=== PATIENT | male | born 1975 | race Caucasian/White ===

== ENCOUNTER 2019-07-18 12:02 | Inpatient (IN) | payer OTHER, SELFPAY ==
[2019-07-18] VITALS (40 sets, daily range): BP systolic 115–150; BP diastolic 73–93; PULSE 89–134; RESP 1–34; TEMP 36.6; O2SAT 91–98; BMI 23.7
--- NOTE | 2019-07-18 12:06 | XR_ITS ---
WS: [id number] XR chest 1V portable [id number] REASON FOR EXAM: cp FINDINGS: Scattered nodular densities in both lung vega are seen. Ulnar nodules aggressive processe s cannot be excluded. The heart mediastinum are normal. The remaining lung vega are well identified. There is no pneumonia, pleural effusion, pulmonary melissa ma. Hilum and apices are normal. XR/XR chest 1V portable [id number] IMPRESSION: Scattered nodules both lung vega we recommend consideration of CT evaluation to rule out aggressive processes.
--- NOTE | 2019-07-18 12:06 | ECG_ITS ---
Measurements Intervals [place] Rate: 118 P: 72 VA: 132 QRS: 60 QRSD: 88 T: 53 QT: 340 QTc: 477 SINUS TACHYCARDIA POSSIBLE LEFT ATRIAL ENLARGEMENT [-0.1mV P WAVE IN V1/V2] NONSPECIFIC T-WAVE ABNORMALITY No previous ECG available for comparison Electronically Signed On 07-18-2019 13:03:21 PERFORMANCE INSTRUCTOR by Luiza Pérez M.D. [id number]
--- NOTE | 2019-07-18 12:30 | ED_ITS ---
Entered by Marta Manzanares, acting as scribe for Samm Cancino MD HPI - Chest Pain General: Chief Complaint: Chest Pain Stated Complaint: cp/sob Time Seen by Provider: 07/18/19 12:32 History of Present Illness: HPI narrative: 44 yo male presents with chest pain. Pt was diagnosed with flu on Friday, he has been taking tamiflu. Pt states that he has had cough, fever and shortness of breath. Pts family member states that pt is out of it and weak. Pt states that he has a mildly productive cough. Pt states that he has pressure in his chest when he takes a deep breath. complaint: chest pain Associated symptoms: Reports dyspnea and fever(s); Deny abdominal pain, nausea or vomiting Review of Systems Const: Reports: fever, chills, body aches, fatigue and malaise Eyes: Denies: blurry vision or eye discomfort ENMT: Denies: throat pain or dental pain Card: Reports: chest pain and shortness of breath on exertion Resp: Reports: shortness of breath, productive cough, wheezing and change in phlegm color (green) GI: Denies: abdominal pain, nausea, vomiting or diarrhea : Denies: painful urination Musc: Denies: neck pain or back pain Skin/Breast: Denies: rash Neuro: Denies: headache Psych: Denies: depression Gm/Lymph: Denies: easy bruising All/Imm: Denies: hives PFSH ED PFSH: Social History Smoking and tobacco status: former smoker Physical Exam Const: COMMON NORMALS: no apparent distress, oriented x3 and healthy appearing HENMT: COMMON NORMALS: normocephalic and head/scalp atraumatic HEAD & SCALP: normocephalic and atraumatic Eye: COMMON NORMALS: PERRL and EOMs intact bilaterally PUPIL: Yes PERRL Neck/C-Spine: COMMON NORMALS: full ROM and supple Chest: COMMONS NORMALS: inspection of chest normal and palpation of chest normal Cardio: COMMON NORMALS: regular rhythm and no murmurs RATE: tachycardic RHYTHM: regular rhythm GI: COMMON NORMALS: normal to inspection, nondistended, normoactive bowel sounds, soft to palpation, non-tender and no masses PALPATION: Yes soft Extremity: COMMON NORMALS: normal to inspection and full ROM Neuro: COMMON NORMALS: oriented x3, moves all extremities and no focal motor deficits Psych: COMMON NORMALS: mental status grossly normal, thought process normal and cooperative THOUGHT PROCESS: normal thought process Skin: COMMON NORMALS: no rashes or lesions noted and no wounds GENERAL SKIN EXAM: no rashes or lesions noted Course Vital Signs: Vital signs: Vital Signs Temperature 98 F 07/18/19 12:24 Pulse Rate 120 H 07/18/19 12:24 Respiratory Rate 18 07/18/19 12:45 Blood Pressure 138/87 07/18/19 12:24 Pulse Oximetry 93 07/18/19 12:45 MDM - Chest Pain MDM Narrative: Medical decision making narrative: Patient presents here with pneumonia and also has influenza. Pneumonia is in his left lower lobe and will start him on azithromycin and Rocephin. Patient is also in DKA likely brought on by his infection. He does have an elevated anion gap and patient given IV fluids here and started on an insulin drip. I spoke to hospitalist and will admit to the ICU. Patient's vital signs have been stable here and his heart rate is improved greatly and he is no longer tachycardic. Lab Data: Labs: Lab Results 07/18/19 07/18/19 07/18/19 Range/Units 12:22 12:22 12:22 WBC 17.6 H (4.0-10.0) 10^3/ uL RBC 5.36 H (4.1-5.3) 10^6/u L Hgb 16.5 (11.7-16.6) g/dL Hct 47.9 (42.0-52.0) % MCV 89.4 (80-94) fL MCH 30.8 (28.0-34.0) pg MCHC 34.4 (30.0-36.0) g/dL RDW 12.7 (12.1-15.1) % Plt Count 219 (130-400) 10^3/c mm MPV 11.7 H (7.4-10.4) fL Neut % (Auto) 83.8 % Lymph % (Auto) 6.1 % [place] % (Auto) 8.9 % Eos % (Auto) 0.0 % Baso % (Auto) 0.2 % Neut # (Auto) 14.8 H (1.8-7.7) 10^3/u L Lymph # (Auto) 1.1 (0.8-4.8) 10^3/u L [place] # (Auto) 1.6 H (0.2-0.9) 10^3/u L Eos # (Auto) 0.0 (0.0-0.8) 10^3/u L Baso # (Auto) 0.0 (0.0-0.1) 10^3/u L Nucleated RBC % (a uto) 0 % Nucleated RBCs # 0.0 /100WBC PT 15.00 H (10.5-13.3) SECO NDS INR 1.14 (0.8-1.2) Sodium 125 L (136-145) mmol/L Potassium 4.3 (3.5-5.1) mmol/L Chloride 86 L (98-107) mmol/L Carbon Dioxide 10 L (22-29) mmol/L Anion Gap 33.3 H (5-19) BUN 20 (6-20) mg/dL Creatinine 1.3 H (0.7-1.2) mg/dL GFR Calculation 60.5 L (90-130) mL/min Glucose 420 H (65-115) mg/dL Lactic Acid (Sepsi s) (0.5-2.2) mmol/L Calcium 9.7 (8.5-10.5) mg/dL Total Bilirubin 0.7 (0.15-1.2) mg/dL AST 9 (0-40) U/L ALT 11 (0-41) U/L Alkaline Phosphata se 69 (40-130) IU/L Troponin T Baselin e (0-15) ng/mL NT-Pro-B Natriuret Pep 21 (0-125) pg/mL Total Protein 7.8 (6.6-8.7) g/dL Albumin 4.2 (3.5-5.2) g/dL Globulin 3.6 (1.3-4.6) g/dL Serum Ketones (Negative) 07/18/19 07/18/19 07/18/19 Range/Units 12:22 12:22 12:22 WBC (4.0-10.0) 10^3/ uL RBC (4.1-5.3) 10^6/u L Hgb (11.7-16.6) g/dL Hct (42.0-52.0) % MCV (80-94) fL MCH (28.0-34.0) pg MCHC (30.0-36.0) g/dL RDW (12.1-15.1) % Plt Count (130-400) 10^3/c mm MPV (7.4-10.4) fL Neut % (Auto) % Lymph % (Auto) % [place] % (Auto) % Eos % (Auto) % Baso % (Auto) % Neut # (Auto) (1.8-7.7) 10^3/u L Lymph # (Auto) (0.8-4.8) 10^3/u L [place] # (Auto) (0.2-0.9) 10^3/u L Eos # (Auto) (0.0-0.8) 10^3/u L Baso # (Auto) (0.0-0.1) 10^3/u L Nucleated RBC % (a uto) % Nucleated RBCs # /100WBC PT (10.5-13.3) SECO NDS INR (0.8-1.2) Sodium (136-145) mmol/L Potassium (3.5-5.1) mmol/L Chloride (98-107) mmol/L Carbon Dioxide (22-29) mmol/L Anion Gap (5-19) BUN (6-20) mg/dL Creatinine (0.7-1.2) mg/dL GFR Calculation (90-130) mL/min Glucose (65-115) mg/dL Lactic Acid (Sepsi s) 0.2 L (0.5-2.2) mmol/L Calcium (8.5-10.5) mg/dL Total Bilirubin (0.15-1.2) mg/dL AST (0-40) U/L ALT (0-41) U/L Alkaline Phosphata se (40-130) IU/L Troponin T Baselin e 8 (0-15) ng/mL NT-Pro-B Natriuret Pep (0-125) pg/mL Total Protein (6.6-8.7) g/dL Albumin (3.5-5.2) g/dL Globulin (1.3-4.6) g/dL Serum Ketones Positive H (Negative) Imaging Data^: CXR: Radiologist's impression: Patient: Cooper Cruz Unit #: [id number] : 1975 Age/Sex: 44 / M ADM Date: 07/18/19 Loc: ER Room/Bed: Attending Dr: Ordering Provider/Ordering MD: Samm Cancino MD Date of Service: 07/18/19 Procedure(s): XR chest 1V portable [id number] Accession Number(s): [id number] Report Number: [id number] WS: [id number] XR chest 1V portable [id number] REASON FOR EXAM: cp FINDINGS: Scattered nodular densities in both lung vega are seen. Ulnar nodules aggressive processes cannot be excluded. The heart mediastinum are normal. The remaining lung vega are well identified. There is no pneumonia, pleural effusion, pulmonary edema. Hilum and apices are normal. XR/XR chest 1V portable [id number] IMPRESSION: Scattered nodules both lung vega we recommend consideration of CT evaluation to rule out aggressive processes. CT Chest: Radiologist's impression: Ordering Provider/Ordering MD: Samm Cancino MD Date of Service: 07/18/19 Procedure(s): CT angio chest PE protcl [id number] Accession Number(s): [id number] Report Number: [id number] PROCEDURE INFORMATION: Exam: CT Angiography Chest With Contrast Exam date and time: 07/18/2019 1:10 PM Age: 44 years old Clinical indication: Chest pain; Other: SOB TECHNIQUE: Imaging protocol: Computed tomographic angiography of the chest with intravenous contrast. 3D rendering: MIP and/or 3D reconstructed images were created by the technologist. Total DLP: 592.43 mGy-cm Radiation optimization: All CT scans at this facility use at least one of these dose optimization techniques: automated exposure control; mA and/or kV adjustment per patient size (includes targeted exams where dose is matched to clinical indication); or iterative reconstruction. Contrast material: OMNI 300; Contrast volume: 95 ml; Contrast route: RT AC; COMPARISON: CR XR chest 1V portable [id number] 07/18/2019 12:15 PM FINDINGS: Pulmonary arteries: Normal. No pulmonary emboli. Aorta: Unremarkable. No aortic aneurysm. No aortic dissection. Lungs: There are pulmonary parenchymal calcifications consistent with remote granulomatous organism exposure. There is patchy consolidation in the left lung, upper and lower lobes, most prominent at the left perihilum, consistent with pneumonia. Pleural space: Unremarkable. No pneumothorax. No pleural effusion. Heart: Unremarkable. No cardiomegaly. No pericardial effusion. Lymph nodes: Unremarkable. No enlarged lymph nodes. Bones/joints: Unremarkable. No acute fracture. Soft tissues: Unremarkable. CT/CT angio chest PE protcl [id number] IMPRESSION: 1. Patchy consolidation in the left lung is consistent with pneumonia. Follow-up to exclude underlying neoplasm if clinically warranted. 2. No evidence for pulmonary embolus. EKG Data^: EKG 1: Attestation: I personally reviewed and interpreted this EKG as follows: EKG interpretation date: 07/18/19 EKG interpretation time: 12:29 Interpretation: sinus tach [address] or t wave abnormalities qrs 88 qtc 410 EKG 2: Attestation: I personally reviewed and interpreted this EKG as follows: EKG interpretation date: 07/18/19 EKG interpretation time: 14:04 Interpretation: Normal sinus rhythm heart rate [address] or T wave abnormalities QRS 89 QTc 401 Critical Care Time Critical Care Time: Critical Care Time: Yes Total Critical Care Time: 35 Attestation: This case had a high probability of a clinically significant, sudden, or life threatening deterioration of this patient's condition which required my full and direct attention, intervention and personal management. Discharge Plan Discharge Patient Disposition: Admitted As Inpatient Clinical Impression: DKA (diabetic ketoacidoses) Qualifiers: Diabetes mellitus type: type 1 Diabetes mellitus complication detail: without coma Qualified Code(s): E10.10 - Type 1 diabetes mellitus with ketoacidosis without coma Pneumonia Qualifiers: Pneumonia type: due to unspecified organism Laterality: left Lung location: lower lobe of lung Qualified Code(s): J18.9 - Pneumonia, unspecified organism Condition: Stable Coding Level of Care Code ED Wedding Photographer for Chg Fwd Exam Comprehensive The documentation recorded by the Leighton salomon Kialy, accurately reflects the service I personally performed and the decisions made by , Samm Cancino MD
[2019-07-18 12:32] LABS: Basophils % 0.2 %; Hematocrit 47.9 % (42.0-52.0); Hemoglobin 16.5 g/dL (11.7-16.6); Lymphocytes # 1.1 10^3/uL (0.8-4.8); Lymphocytes % 6.1 %; Mean Corpuscular HGB Conc 34.4 g/dL (30.0-36.0); Mean Corpuscular Hemoglobin 30.8 pg (28.0-34.0); Mean Corpuscular Volume 89.4 fL (80-94); Mean Platelet Volume 11.7 fL (7.4-10.4); Monocytes # 1.6 10^3/uL (0.2-0.9); Monocytes % 8.9 %; Neutrophils # 14.8 10^3/uL (1.8-7.7); Neutrophils % 83.8 %; Nucleated Red Blood Cells % 0 %; Platelet Count 219 10^3/cmm (130-400); Red Blood Count 5.36 10^6/uL (4.1-5.3); Red Cell Distribution Width 12.7 % (12.1-15.1); White Blood Count 17.6 10^3/uL (4.0-10.0)
--- NOTE | 2019-07-18 12:33 | CTR_ITS ---
PROCEDURE INFORMATION: Exam: CT Angiography Chest With Contrast Exam date and time: 07/18/2019 1:10 PM Age: 44 years old Clinical indication: Chest pain; Other: SOB TECHNIQUE: Imaging protocol: Computed tomographic angiography of the chest with intravenous contrast. 3D rendering: MIP and/or 3D reconstructed images were created by the technologist. Total DLP: 592.43 mGy-cm Radiation optimization: All CT scans at this facility use at least one of these dose optimization techniques: automated exposure control; mA and/or kV adjustment per patient size (includes targeted exams where dose is matched to clinical indication); or iterative reconstruction. Contrast material: OMNI 300; Contrast volume: 95 ml; Contrast route: RT AC; COMPARISON: CR XR chest 1V portable [id number] 07/18/2019 12:15 PM FINDINGS: Pulmonary arteries: Normal. No pulmonary emboli. Aorta: Unremarkable. No aortic aneurysm. No aortic dissection. Lungs: There are pulmonary parenchymal calcifications consistent with remote granulomatous organism exposure. There is patchy consolidation in the left lung, upper and lower lobes, most prominent at the left perihilum, consistent with pneumonia. Pleural space: Unremarkable. No pneumothorax. No pleural effusion. Heart: Unremarkable. No cardiomegaly. No pericardial effusion. Lymph nodes: Unremarkable. No enlarged lymph nodes. Bones/joints: Unremarkable. No acute fracture. Soft tissues: Unremarkable. CT/CT angio chest PE protcl [id number] IMPRESSION: 1. Patchy consolidation in the left lung is consistent with pneumonia. Follow-up to exclude underlying neoplasm if clinically warranted. 2. No evidence for pulmonary embolus. Radiation Dose CTDIVOL = (mGy): DLP = 592.43 (mGy-cm)
[2019-07-18 12:44] LABS: INR 1.14 (0.8-1.2)
[2019-07-18] MEDS: acetaminophen 500 mg Tablet 1000 MG PO (12:44)
[2019-07-18] MEDS: morphine 4 mg/mL SDV 1 mL IVP (12:45)
[2019-07-18 12:55] LABS: Troponin(5th) Baseline 8 ng/mL (0-15)
[2019-07-18 12:59] LABS: Lactic Acid level (Lactate) 0.2 mmol/L (0.5-2.2)
[2019-07-18 13:04] LABS: Alanine Aminotransferase 11 U/L (0-41); Albumin Level 4.2 g/dL (3.5-5.2); Alkaline Phosphatase 69 IU/L (40-130); Anion Gap 33.3 (5-19); Aspartate Amino Transferase 9 U/L (0-40); Blood Urea Nitrogen 20 mg/dL (6-20); Calcium 9.7 mg/dL (8.5-10.5); Carbon Dioxide 10 mmol/L (22-29); Chloride 86 mmol/L (98-107); Creatinine Clr Calc Pharmacy 81.9929; Globulin 3.6 g/dL (1.3-4.6); Glomerular Filtration Rate 60.5 mL/min (90-130); Glucose 420 mg/dL (65-115); NT Pro B Type Natriuretic Pept 21 pg/mL (0-125); Potassium 4.3 mmol/L (3.5-5.1); Sodium 125 mmol/L (136-145); Total Bilirubin 0.7 mg/dL (0.15-1.2); Total Protein 7.8 g/dL (6.6-8.7)
--- NOTE | 2019-07-18 13:13 | PC.NURSE ---
Patient to CT via stretcher
[2019-07-18] MEDS: iohexol 350 mg/mL 100 mL Btl IV (13:19)
[2019-07-18] MEDS: lactated ringers 1,000 ML 999 ML IV (13:58)
[2019-07-18 14:02] LABS: Ketone (Acetest) Serum Positive (Negative)
--- NOTE | 2019-07-18 14:06 | ECG_ITS ---
Measurements Intervals [place] Rate: 96 P: 49 MS: 120 QRS: 32 QRSD: 89 T: 54 QT: 348 QTc: 440 SINUS RHYTHM Compared to ECG 07/18/2019 12:29:09 Sinus tachycardia no longer present T-wave abnormality no longer present Electronically Signed On 07-19-2019 15:42:24 FULFILLMENT REPRESENTATIVE by Luiza Pérez M.D. [id number]
[2019-07-18] MEDS: cefTRIAXone 1,000 MG in sodium chloride 0.9% (plus) 50 ML 100 MG IV (14:19)
[2019-07-18 14:39] LABS: Troponin 5 2HR 7.48 ng/mL (0-15)
[2019-07-18 14:41] LABS: ABG PCO2 22.7 mmHg (35-45); ABG PH Result 7.29 (7.35-7.45); Arterial Blood Gas Hematocrit 46.5 % (42-52); Base Excess ABG -13.4 mmol/L (-2.0-2.0); Blood Gas Allen Test Pos; Blood Gas Sample Site Radial, right; Blood Gas Sample Type Arterial; Oxygen Device ROOM AIR; PO2 ABG 62.8 mmHg (80.0-100.0)
[2019-07-18 14:45] LABS: Troponin 5 2HR Delta -0.52 ABS# (0-10)
--- NOTE | 2019-07-18 14:59 | PC.NURSE ---
Report called to BJ in ICU. She voiced concern that this patient has not been given insulin in ED. I advised that an insulin drip is present on the admission orders but has not been started. Insulin drip has not been delivered to the ED.
[2019-07-18 15:18] LABS: Glucose Point of Care 386 mg/dL (70-110)
[2019-07-18] MEDS: azithromycin 500 MG in sodium chloride 0.9% 250 ML 250 MG IV (15:18)
--- NOTE | 2019-07-18 15:30 | P.HP_ITS ---
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 In ER was assessed by CTA, without finding of PE. Noted to have pneumonia with left lower lobe infiltrate. Leukocytosis 17.6, sinus tachycardia 120, and in ER also noted to be in DKA. pH 7.29. Bicarb 10, anion gap 33.3. Review of Systems Const: Reports: change in appetite and malaise; Denies: fever, chills or body aches Eyes: Denies: change in vision or eye redness ENMT: Denies: throat pain, oral sores/lesions or ear pain Card: Denies: chest pain, edema, pre-syncope or shortness of breath on exertion Resp: Reports: non-productive cough and other (pleuritic pain); Denies: shortness of breath, productive cough, change in phlegm color or coughing up blood GI: Denies: abdominal pain, nausea, vomiting, diarrhea, constipation, blood in stool or black tarry stool : Denies: flank pain, difficulty urinating, urinary frequency or blood in urine Musc: Denies: back pain, joint swelling or redness Skin/Breast: Denies: rash, sores or new lesion Neuro: Denies: headache, numbness in extremities, weakness in extremities, dizziness, confusion or seizure-like activity Endo: Denies: excessive urination or excessive thirst Gm/Lymph: Denies: easy bleeding or purpura All/Imm: Denies: hives, throat swelling or tongue swelling Medications/Allergies Home Medications Medication Instructions Recorded Confirmed Last Taken Type azithromycin See Rx Instructions .ROUTE .COMPLEX 07/18/19 07/18/19 07/18/19 History oseltamivir [Tamiflu] 75 mg PO DAILY 07/18/19 07/18/19 07/18/19 History Allergies Allergy/AdvReac Type Severity Reaction Status Date / Time No Known Allergies Allergy Verified 07/18/19 12:28 PFSH Acute PFSH: Medical History (Updated 07/18/19 @ 16:12 by Bradford Aguiar MD) Diabetes DM1 vs ISAAC? Intolerant of chronic insulin or oral therapy. Scott War syndrome Surgical History No history of previous surgery Family History Other Healthy adult Social History Smoking and tobacco status: former smoker Quit status (tobacco): has quit using tobacco Year quit tobacco: 2-3 ya Alcohol intake: current Alcohol intake frequency: holidays/special occasions only Substance/Drug Use: never Lives independently: Yes Household members: spouse Marital status: service: Yes Current occupational status: student Vitals/I&O/Wt Last Vital Signs Temp 98 F 07/18/19 12:24 Pulse 89 07/18/19 14:55 Resp 18 07/18/19 14:55 BP 143/83 07/18/19 14:55 Pulse Ox 98 07/18/19 14:55 Weight last 48 hrs Weight 79.379 kg Physical Exam Const: COMMON NORMALS: no apparent distress and oriented x3 HENMT: COMMON NORMALS: oropharynx normal MOUTH: other (dry MM) Neck/C-Spine: COMMON NORMALS: no JVD Resp: COMMON NORMALS: normal respiratory effort Cardio: COMMON NORMALS: no JVD and regular rhythm RATE: tachycardic RHYTHM: regular rhythm GI: INSPECTION: Yes normal to inspection PALPATION: Yes soft Extremity: COMMON NORMALS: no joint enlargement and no pedal edema Neuro: COMMON NORMALS: oriented x3 and moves all extremities Skin: COMMON NORMALS: no rashes or lesions noted GENERAL SKIN EXAM: no rashes or lesions noted Data : 07/18/19 12:22 07/18/19 12:22 Micro: Microbiology 07/18/19 12:50 Blood Culture - Preliminary Blood SPECIMEN COLLECTED 07/18/19 12:22 Blood Culture - Preliminary Blood SPECIMEN COLLECTED A&P Assessment and plan (1) DKA (diabetic ketoacidoses): Insulin drip, IV fluid, monitor and replace electrolytes as needed. Sips with ice chips. He may be able to tolerate some insulin subcutaneously once he is ready to switch while in the hospital, however, states long-term cannot tolerate insulin. Has followed with multiple specialists who have had trouble managing his diabetes. Status: Acute Qualifiers: Diabetes mellitus complication detail: without coma Diabetes mellitus type: type 1 Qualified Code(s): E10.10 - Type 1 diabetes mellitus with ketoacidosis without coma Code(s): E11.10 - Type 2 diabetes mellitus with ketoacidosis without coma (2) Pneumonia: Continue Rocephin, azithromycin. Collect sputum culture. Status: Acute Qualifiers: Laterality: left Lung location: lower lobe of lung Pneumonia type: due to unspecified organism Qualified Code(s): J18.9 - Pneumonia, unspecified organism Code(s): J18.9 - Pneumonia, unspecified organism (3) Influenza: Tamiflu Status: Acute Code(s): J11.1 - Influenza due to unidentified influenza virus with other respiratory manifestations (4) Diabetes: States he controls this by diet and lifestyle. Intolerant of insulin. When asked about oral medication states was intolerant of metformin in the past. Status: Acute Code(s): E11.9 - Type 2 diabetes mellitus without complications Additional A&P Information Chest pain: Pleuritic chest pain secondary to pneumonia, cough. Attestations Medical Necessity Statement*: Admission of over 2 midnights is going to be needed for assessment management of DKA, pneumonia, influenza. Coding Level of Care Code Acute Assembler Carbon Brushes for [facility] [place] Diagnoses DKA (diabetic ketoacidoses) E10.10 Diabetes mellitus complication detail: without coma Diabetes mellitus type: type 1 Pneumonia J18.9 Laterality: left Lung location: lower lobe of lung Pneumonia type: due to unspecified organism Influenza J11.1 Diabetes E11.9
[2019-07-18] MEDS: heparin 5,000 unit/mL INJ 1 mL 5000 UNIT SUBCUT (16:57)
[2019-07-18] MEDS: sodium chloride 0.9% 1,000 ML 150 ML IV (16:57)
[2019-07-18 17:17] LABS: Anion Gap 27.7 (5-19); Blood Urea Nitrogen 17 mg/dL (6-20); Calcium 9.6 mg/dL (8.5-10.5); Carbon Dioxide 13 mmol/L (22-29); Chloride 92 mmol/L (98-107); Glomerular Filtration Rate 73.4 mL/min (90-130); Glucose 310 mg/dL (65-115); Osmolality Calculated 276 mOsm/kg (285-295); Potassium 3.7 mmol/L (3.5-5.1); Sodium 129 mmol/L (136-145)
[2019-07-18 18:37] LABS: Glucose Point of Care 254 mg/dL (70-110)
[2019-07-18 18:37] LABS: Glucose Point of Care 322 mg/dL (70-110)
[2019-07-18 18:37] LABS: Glucose Point of Care 197 mg/dL (70-110)
[2019-07-18 19:16] LABS: Troponin 5 6HR 6.39 ng/mL (0-15)
--- NOTE | 2019-07-18 19:29 | PC.NURSE ---
rcvd report pt resting in bed with family at bedside. vss per cm. no distress noted. insulin gtt infusing at 9.7 units / hr. pt / family denies needs at this time. education provided on checking blood sugar and diabetes mgmt, pt resistant to education. bob james.
[2019-07-18 19:32] LABS: Troponin 5 6HR Delta -1.61 ng/L (0-12)
[2019-07-18] MEDS: potassium chloride premix 40 MEQ/100 ML PREMIX 25 MEQ IV (21:17)
[2019-07-18] MEDS: insulin regular-human 250 UNIT in sodium chloride 0.9% 250 ML 5.5 UNIT IV (21:23)
[2019-07-19] VITALS (40 sets, daily range): BP systolic 114–135; BP diastolic 70–85; PULSE 88–115; RESP 15–35; TEMP 36.6–37.9; O2SAT 90–93
[2019-07-19] MEDS: heparin 5,000 unit/mL INJ 1 mL 5000 UNIT SUBCUT ×3 (00:22→17:06)
[2019-07-19] MEDS: dextrose 5%-sod chloride 0.45% 1,000 ML 150 ML IV (02:17)
[2019-07-19] MEDS: cefTRIAXone 1,000 MG in sodium chloride 0.9% (plus) 50 ML 100 MG IV ×2 (02:17→13:39)
[2019-07-19 05:14] LABS: Basophils % 0.1 %; Hematocrit 39.4 % (42.0-52.0); Hemoglobin 13.5 g/dL (11.7-16.6); Lymphocytes % 9.5 %; Mean Corpuscular HGB Conc 34.3 g/dL (30.0-36.0); Mean Corpuscular Hemoglobin 29.2 pg (28.0-34.0); Mean Corpuscular Volume 85.3 fL (80-94); Monocytes # 1.2 10^3/uL (0.2-0.9); Monocytes % 11.5 %; Neutrophils # 8.1 10^3/uL (1.8-7.7); Neutrophils % 78.4 %; Nucleated Red Blood Cells % 0 %; Platelet Count 216 10^3/cmm (130-400); Red Blood Count 4.62 10^6/uL (4.1-5.3); Red Cell Distribution Width 12.6 % (12.1-15.1); White Blood Count 10.4 10^3/uL (4.0-10.0)
[2019-07-19 05:21] LABS: Alanine Aminotransferase 7 U/L (0-41); Albumin Level 3.3 g/dL (3.5-5.2); Alkaline Phosphatase 52 IU/L (40-130); Anion Gap 17.7 (5-19); Aspartate Amino Transferase 7 U/L (0-40); Blood Urea Nitrogen 14 mg/dL (6-20); Carbon Dioxide 17 mmol/L (22-29); Chloride 101 mmol/L (98-107); Creatinine Clr Calc Pharmacy 133.2385; Globulin 3.2 g/dL (1.3-4.6); Glucose 147 mg/dL (65-115); Potassium 3.7 mmol/L (3.5-5.1); Sodium 132 mmol/L (136-145); Total Bilirubin 0.4 mg/dL (0.15-1.2); Total Protein 6.5 g/dL (6.6-8.7)
[2019-07-19 05:22] LABS: Magnesium 1.9 mg/dL (1.7-2.3)
--- NOTE | 2019-07-19 05:49 | PC.NURSE ---
notified dr mckee of closed anion gap order for diabetic diet rcvd. will allow oncoming md to order sliding scale. gagan davila rn.
[2019-07-19 07:00] LABS: Glucose Point of Care 139 mg/dL (70-110)
[2019-07-19 07:00] LABS: Glucose Point of Care 167 mg/dL (70-110)
[2019-07-19 07:00] LABS: Glucose Point of Care 162 mg/dL (70-110)
[2019-07-19 07:00] LABS: Glucose Point of Care 176 mg/dL (70-110)
[2019-07-19 07:01] LABS: Glucose Point of Care 137 mg/dL (70-110)
[2019-07-19 07:01] LABS: Glucose Point of Care 159 mg/dL (70-110)
[2019-07-19 07:01] LABS: Glucose Point of Care 139 mg/dL (70-110)
[2019-07-19 07:01] LABS: Glucose Point of Care 156 mg/dL (70-110)
[2019-07-19 07:01] LABS: Glucose Point of Care 144 mg/dL (70-110)
[2019-07-19 07:01] LABS: Glucose Point of Care 133 mg/dL (70-110)
[2019-07-19 07:01] LABS: Glucose Point of Care 151 mg/dL (70-110)
[2019-07-19 07:01] LABS: Glucose Point of Care 129 mg/dL (70-110)
[2019-07-19] MEDS: oseltamivir phosphate 75 mg Capsule PO (09:28)
[2019-07-19] MEDS: sodium chloride 0.9% 1,000 ML 150 ML IV ×2 (09:29→17:09)
[2019-07-19] MEDS: insulin glargine 100 units/1 mL 10 UNIT SUBCUT (09:29)
--- NOTE | 2019-07-19 12:16 | PM.PN ---
Subjective Subjective: Interval history: Cooper reports he certainly does not feel completely normal, but he feels better than yesterday. Still some cough. Able to eat only a small amount. Medications: Reviewed: Yes Vitals/I&O/Wt Last Vital Signs Temp 98 F 07/18/19 12:24 Pulse 105 H 07/19/19 08:15 Resp 25 H 07/19/19 08:15 BP 129/76 07/19/19 08:15 Pulse Ox 91 07/19/19 08:15 07/18/19 07/19/19 07/19/19 22:59 06:59 14:59 Intake Total 300 / 300 479.662 / 779.662 570 / 570 Output Total 800 / 800 200 / 1000 800 / 800 Balance -500 / -500 279.662 / -220.338 -230 / -230 Weight last 48 hrs Weight 79.379 kg Physical Exam Narrative: EXAM NARRATIVE: General exam no apparent distress Cardiovascular regular rate and rhythm without murmur Lungs clear, diminished breath sounds bilaterally Abdomen is soft with positive bowel sounds Extremities no cyanosis clubbing or edema Data : 07/19/19 04:21 07/19/19 04:21 Micro: Microbiology 07/18/19 19:56 Gram Stain - Final Sputum - Expectorated Sputum 07/18/19 12:50 Blood Culture - Preliminary Blood SPECIMEN COLLECTED 07/18/19 12:22 Blood Culture - Preliminary Blood SPECIMEN COLLECTED A&P Assessment and plan (1) DKA (diabetic ketoacidoses): Anion gap is now closed Discontinue insulin drip Start subcutaneous insulin Continue to monitor sugar closely Continue fluids, normal saline to prevent dehydration as he still is ill. Note that as stated by prior physician, he may be able to tolerate some insulin subcutaneously once he is ready to switch while in the hospital, however, states long-term cannot tolerate insulin. Has followed with multiple specialists who have had trouble managing his diabetes. Status: Acute Qualifiers: Diabetes mellitus complication detail: without coma Diabetes mellitus type: type 1 Qualified Code(s): E10.10 - Type 1 diabetes mellitus with ketoacidosis without coma Code(s): E11.10 - Type 2 diabetes mellitus with ketoacidosis without coma (2) Pneumonia: Continue Rocephin, azithromycin. Collect sputum culture. Status: Acute Qualifiers: Laterality: left Lung location: lower lobe of lung Pneumonia type: due to unspecified organism Qualified Code(s): J18.9 - Pneumonia, unspecified organism Code(s): J18.9 - Pneumonia, unspecified organism (3) Influenza: Tamiflu Status: Acute Code(s): J11.1 - Influenza due to unidentified influenza virus with other respiratory manifestations (4) Diabetes: Reports he is intolerant of oral medication for diabetes Status: Acute Code(s): E11.9 - Type 2 diabetes mellitus without complications Additional A&P Information Chest pain: Pleuritic chest pain secondary to pneumonia, cough. Attestations Medical Necessity Statement*: Needs continued hospitalization for IV antibiotics secondary to pneumonia, and close follow-up of DKA with institution of subcutaneous insulin Coding Level of Care Code Acute Rn Mds Coordinator for [facility] Fwd Diagnoses DKA (diabetic ketoacidoses) E10.10 Diabetes mellitus complication detail: without coma Diabetes mellitus type: type 1 Pneumonia J18.9 Laterality: left Lung location: lower lobe of lung Pneumonia type: due to unspecified organism Influenza J11.1 Diabetes E11.9
[2019-07-19 16:52] LABS: Glucose Point of Care 193 mg/dL (70-110)
[2019-07-19 16:52] LABS: Glucose Point of Care 189 mg/dL (70-110)
[2019-07-19 17:07] LABS: Glucose Point of Care 240 mg/dL (70-110)
[2019-07-19] MEDS: acetaminophen 325 mg Tablet 650 MG PO ×2 (17:09→20:13)
[2019-07-19] MEDS: azithromycin 500 MG in sodium chloride 0.9% 250 ML 250 MG IV (17:45)
[2019-07-19 19:49] LABS: Glucose Point of Care 274 mg/dL (70-110)
--- NOTE | 2019-07-19 20:02 | PC.NURSE ---
pt refusing telemetry at this time. explained the importance of having it on. notified dr soares which said ok and no new orders at this time.
[2019-07-20] VITALS (8 sets, daily range): BP systolic 130–135; BP diastolic 77–83; PULSE 82–86; RESP 16–22; TEMP 36.5–37; O2SAT 92–98
[2019-07-20] MEDS: cefTRIAXone 1,000 MG in sodium chloride 0.9% (plus) 50 ML 100 MG IV (00:42)
[2019-07-20] MEDS: heparin 5,000 unit/mL INJ 1 mL 5000 UNIT SUBCUT ×2 (00:42→07:43)
[2019-07-20] MEDS: sodium chloride 0.9% 1,000 ML 150 ML IV ×2 (00:43→07:38)
[2019-07-20 05:51] LABS: Anion Gap 19.7 (5-19); Blood Urea Nitrogen 10 mg/dL (6-20); Calcium 8.3 mg/dL (8.5-10.5); Carbon Dioxide 16 mmol/L (22-29); Chloride 102 mmol/L (98-107); Glomerular Filtration Rate 147.8 mL/min (90-130); Glucose 260 mg/dL (65-115); Osmolality Calculated 283 mOsm/kg (285-295); Potassium 3.7 mmol/L (3.5-5.1); Sodium 134 mmol/L (136-145)
[2019-07-20 06:46] LABS: Glucose Point of Care 238 mg/dL (70-110)
[2019-07-20] MEDS: insulin glargine 100 units/1 mL 10 UNIT SUBCUT (09:49)
[2019-07-20] MEDS: oseltamivir phosphate 75 mg Capsule PO (09:49)
[2019-07-20 10:20] LABS: Glucose Point of Care 241 mg/dL (70-110)
[2019-07-20] MEDS: ipratropium-albuterol 3 mL Neb INHALATION (12:44)
--- NOTE | 2019-07-20 12:44 | P.DS_ITS ---
Discharge Providers Date of Admission: 07/18/19 14:37 Date of Discharge: July 20, 2019 Attending Provider at Admission: Bradford Aguiar Attending Provider at Discharge: Mariusz Wyatt MD Primary Care Provider: Malvin Diggs Diagnoses at Discharge Discharge Diagnosis (1) DKA (diabetic ketoacidoses): Status: Acute Problem details: Resolved. Lantus, NovoLog started which she is tolerating Qualifiers: Diabetes mellitus complication detail: without coma Diabetes mellitus type: type 1 Qualified Code(s): E10.10 - Type 1 diabetes mellitus with ketoacidosis without coma (2) Pneumonia: Status: Acute Problem details: Will finish up with 7 days of cefdinir Qualifiers: Laterality: left Lung location: lower lobe of lung Pneumonia type: due to unspecified organism Qualified Code(s): J18.9 - Pneumonia, unspecified organism (3) Influenza: Status: Acute Problem details: He has finished 5 days of Tamiflu. This will be discontinued (4) Diabetes: Status: Acute Problem details: DM1 vs ISAAC? Intolerant of chronic insulin or oral therapy. Reason for Visit Reason for Visit: Reason For Visit: Pneumonia;flu;dka Hospital Course Hospital Course: Cooper is a 44-year-old white male who presented to the hospital with diabetic ketoacidosis. He had presented with some respiratory symptoms. He had recently been diagnosed with influenza. There was concern he had a left lower lobe pneumonia on his x-ray. He was placed on IV antibiotics, IV insulin, fluids, and transition from the ER to the ICU. While at the hospital he received a CTA of his chest demonstrating no pulmonary embolism. This was consistent with pneumonia. With treatment of his DKA with an insulin drip and fluids this resolved and anion gap closed. He received Rocephin and azithromycin for pneumonia, and his Tamiflu was continued. By the end of his hospital course he was feeling much better. He was tolerating a diet. His anion gap had closed. He was willing to take insulin which she had been resistant to in the past. He was afebrile and not requiring oxygen. It was thought he could be discharged home. Physical Exam Narrative: EXAM NARRATIVE: General exam no apparent distress Cardiovascular regular rate and rhythm without murmur Lungs clear but with diminished breath sounds at the bases Abdomen is soft with positive bowel sounds Extremities no cyanosis clubbing or edema Discharge Data Data Completed and Pending: Completed Studies During Hospitalization Category Date Time Status CT angio chest PE protcl [id number] Urge nt Cat Scan 07/18/19 12:33 Completed XR chest 1V dania ble [id number] Stat Exams 07/18/19 12:06 Completed Pending at discharge Category Date Time Status Blood Culture Sta t Lab 07/18/19 12:50 Results Sputum Culture an d Gram Stain Routi ne Lab 07/18/19 19:56 Results Labs from last 24 hours 07/20/19 07/20/19 07/20/19 10:12 06:37 05:06 Sodium 134 L Potassium 3.7 Chloride 102 Carbon Dioxide 16 L Anion Gap 19.7 H BUN 10 Creatinine 0.6 L GFR Calculation 147.8 H Glucose 260 H POC Glucose 241 238 Calculated Osmolal ity 283 L Calcium 8.3 L 07/19/19 07/19/19 07/19/19 19:42 16:52 11:36 Sodium Potassium Chloride Carbon Dioxide Anion Gap BUN Creatinine GFR Calculation Glucose POC Glucose 274 240 189 Calculated Osmolal ity Calcium 07/19/19 08:14 Sodium Potassium Chloride Carbon Dioxide Anion Gap BUN Creatinine GFR Calculation Glucose POC Glucose 193 Calculated Osmolal ity Calcium Vitals: Last Vital Signs Temp 97.7 F 07/20/19 11:12 Pulse 82 07/20/19 11:38 Resp 16 07/20/19 11:32 BP 135/83 07/20/19 11:12 Pulse Ox 93 07/20/19 11:32 Discharge Plan Discharge Patient Disposition: Home, Self-Care Condition: Stable Prescriptions: New cefdinir 300 mg capsule 300 mg PO BID Qty: 14 RF: 0 albuterol sulfate 90 mcg/actuation HFA aerosol inhaler 1 inh INHALATION Q6H PRN (Reason: shortness of breath or wheezing) Qty: 6.7 RF: 0 insulin aspart U-100 [Novolog Flexpen U-100 Insulin] 100 unit/mL (3 mL) insulin pen 5 unit SUBCUT TID Qty: 15 RF: 0 Lantus Solostar U-100 Insulin 100 unit/mL (3 mL) insulin pen 20 unit SUBCUT DAILY Qty: 15 RF: 0 Discontinued azithromycin 250 mg tablet See Rx Instructions .ROUTE .COMPLEX RF: 0 Tamiflu 75 mg Capsule 75 mg PO DAILY RF: 0 Discharge Orders: Discharge Order (Routine); Ordered 07/20/19 Ordered By: Mariusz Wyatt Referrals: Malvin Diggs [Primary Care Provider] - 1-3 days Discharge Diet: Diabetic Discharge Activity: Increase activity as tolerated Activity Restrictions/Additional Instructions: With primary care provider approximately 3 days. Take medicine as prescribed. Encourage fluids. Finish course of antibiotic. Discharge Attestations Time Spent in Discharge Care*: greater than 30 min Quality Metrics Clinical Quality Measures During this hospital stay, did patient experience: None Coding Level of Care Code Acute [employer] for [facility] Fwd Diagnoses DKA (diabetic ketoacidoses) E10.10 Diabetes mellitus complication detail: without coma Diabetes mellitus type: type 1 Pneumonia J18.9 Laterality: left Lung location: lower lobe of lung Pneumonia type: due to unspecified organism Influenza J11.1 Diabetes E11.9
== END 2019-07-20 13:30 | disposition home or self-care (01) | DRG 637 ==
LOC: ER 14:23 → ICU 14:46 → MEDSURG 07-19 13:51
PROVIDERS: Admitting Provider Internal Medicine; Emergency Provider Emergency Medicine; PCP Family Medicine; Visit Provider Internal Medicine
DX: E10.10 Type 1 diabetes mellitus with ketoacidosis without coma (principal); J18.9 Pneumonia, unspecified organism; Z87.891 Personal history of nicotine dependence; R63.4 Abnormal weight loss; Z68.23 Body mass index [BMI] 23.0-23.9, adult; J11.1 Influenza due to unidentified influenza virus with other respiratory manifestations; Z79.51 Long term (current) use of inhaled steroids
CPT/HCPCS: 12345; 36415; 36416; 36600; 71045; 71275; 80048; 80053; 82009; 82803; 82962; 83605; 83735; 83880; 84100; 84484; 85025; 85610; 87040; 87070; 87077; 87186; 87205; 93005; 94640; 96372; 96375; 99283; J0456; J0696; J1644; J1815; J2270; J3480; J7030; J7050; J7799; Q9967

== ENCOUNTER 2020-06-12 11:01 | Inpatient (IN) | payer OTHER, SELFPAY ==
[2020-06-12] VITALS (7 sets, daily range): BP systolic 121–175; BP diastolic 78–104; PULSE 81–106; RESP 16–18; TEMP 36.4–36.8; O2SAT 95–98; BMI 20.3
--- NOTE | 2020-06-12 11:21 | W.ED.WOUNDLC ---
HPI - Wound/Laceration General: Chief Complaint: Wound/Laceration Stated Complaint: Rt foot pain Time Seen by Provider: 06/12/20 11:04 History of Present Illness: HPI narrative: The patient complains of right foot pain. He says he got a small scrape on the bottom of his right forefoot 2 weeks ago and it healed fine however over the past few days it has been getting increasingly swollen, red, and painful. He says it looks like there is a small amount of pus under the skin as well. He does have a small abscess on his right medial forefoot with surrounding cellulitis. He says he is a type II diabetic, takes insulin and can never take his sugar down. He says he thinks his sugars probably 500 right now. He has seen several endocrinologists and takes his insulin as directed however he has difficulty controlling it. Denies previous neuropathy. He had a tetanus shot [address]: home Review of Systems General: Reports: 10 or more systems reviewed and unremarkable except in HPI and below Const: Denies: fatigue Eyes: Denies: change in vision, blurry vision or eye redness ENMT: Denies: throat pain, swelling of lips/tongue, ear or mastoid pain or nasal congestion Card: Denies: chest pain, palpitations, irregular heart rhythm, edema, dyspnea on exertion or orthopnea Resp: Denies: dyspnea, productive cough or non-productive cough GI: Denies: abdominal pain, diarrhea or GI cramping : Denies: flank pain, urinary frequency or urinary urgency Musc: Denies: neck pain, back pain, extremity pain, joint pain, joint redness, limited range of motion or muscle weakness Skin/Breast: Reports: erythema and skin swelling; Denies: rash, pruritus, skin pain or skin tenderness Neuro: Denies: headache(s), numbness in extremities, weakness in extremities, sensory changes, difficulty walking, dizziness, confusion or Slurred speech present Psych: Denies: anxiety or depression Endo: Denies: polyuria All/Imm: Denies: urticaria, throat swelling or tongue swelling PFSH ED PFSH: Medical History (Updated 06/12/20 @ 14:40 by Patrick Keyes MD) Diabetes DM1 vs ISAAC? Intolerant of chronic insulin or oral therapy. [place] syndrome Surgical History No history of previous surgery Family History Other Healthy adult Social History Smoking and tobacco status: former smoker Quit status (tobacco): has quit using tobacco Year quit tobacco: 2-3 ya Alcohol intake: current Alcohol intake frequency: holidays/special occasions only Lives independently: Yes Household members: spouse Marital status: service: Yes status: Retired Current occupational status: student Physical Exam Const: COMMON NORMALS: no acute distress, average body habitus, patient oriented x3, no limitations, healthy appearing, alert and well nourished GENERAL APPEARANCE: cooperative, comfortable, well kempt and well developed ORIENTATION/CONSCIOUSNESS: Yes awake, Yes oriented to person, Yes oriented to place and Yes oriented to time HENMT: COMMON NORMALS: normocephalic, external ears normal and Normal external nose present HEAD & SCALP: normal to inspection and normocephalic NOSE: Normal external nose present EXTERNAL EAR: Yes external ears normal MOUTH: Normal oral and palatal mucosa present THROAT: posterior oropharynx normal Eye: COMMON NORMALS: Equal, round and reactive pupils present and EOMs intact bilaterally GENERAL EYE: appearance normal, both eyes and all related structures PUPIL: Yes Equal, round and reactive pupils present Neck/C-Spine: COMMON NORMALS: full ROM, no lymphadenopathy, no meningeal signs and no JVD GENERAL: Yes normal visual inspection Lymph: LYMPHATIC: no lymphadenopathy noted Chest: COMMONS NORMALS: normal inspection of the chest and normal palpation of entire chest wall Resp: COMMON NORMALS: normal respiratory effort, No retractions, No use of accessory muscles, clear to auscultation bilaterally and percussion normal EFFORT & INSPECTION: Yes able to speak in complete sentences AUSCULTATION: clear to auscultation bilaterally PERCUSSION: percussion normal Cardio: COMMON NORMALS: no JVD, regular rate, regular rhythm, S1 normal heart sound present, S2 normal heart sound present and Peripheral pulses 2+ throughout RATE: regular rate RHYTHM: regular rhythm HEART SOUNDS: S1 normal heart sound present and S2 normal heart sound present PERIPHERAL PULSES: Peripheral pulses 2+ throughout GI: COMMON NORMALS: Normal to inspection, nondistended, normoactive bowel sounds present, Soft to palpation, non-tender and no masses INSPECTION: Yes normal to inspection PALPATION: Yes Soft to palpation : COMMON NORMALS: Yes no CVA tenderness BLADDER/KIDNEY EXAM: Yes no CVA tenderness Back/Pelvis: COMMON NORMALS: no CVA tenderness, thoracic and lumbar spine normal to inspection, no thoracic nor lumbar tenderness and thoraco-lumbar ROM normal Extremity: COMMON NORMALS: normal to inspection, full ROM, capillary refill normal, no joint enlargement and no pedal edema NARRATIVE EXTREMITY EXAM: Normal except right foot small area of healed laceration approximately 2 weeks old. Surrounding erythema and small abscess to the right medial forefoot visible under the skin. Surrounding erythema 2 to 4 cm in different directions indicating cellulitis. GENERAL: Yes normal exam except as noted Neuro: COMMON NORMALS: patient oriented x3, CN's II-XII intact bilaterally, moves all extremities, no focal motor deficits, no sensory deficits noted and gait normal SENSORIUM/ORIENTATION: Yes alert, Yes oriented to person, Yes oriented to place and Yes oriented to time MENINGEAL SIGNS: Yes no meningeal signs Psych: COMMON NORMALS: mental status grossly normal, Normal thought process present, cooperative, normal affect and speech normal APPEARANCE: Yes well kempt ATTITUDE: Yes calm SPEECH: Yes normal speech THOUGHT PROCESS: Normal thought process present Skin: COMMON NORMALS: no rashes or lesions noted GENERAL SKIN EXAM: no rashes or lesions noted Course Vital Signs: Vital signs: Vital Signs Temperature 97.5 F L 06/12/20 11:03 Pulse Rate 81 06/12/20 13:22 Respiratory Rate 16 06/12/20 13:22 Blood Pressure 132/83 06/12/20 14:36 Pulse Oximetry 95 06/12/20 14:36 MDM - Wound/Laceration MDM Narrative: Medical decision making narrative: The patient has an abscess on his right forefoot and a white count of 16. He was started on vancomycin and Zosyn in the ER. Discussed with Dr. Aguiar who accepts for admission. He will consult podiatry to see this patient Lab Data: Labs: Lab Results 06/12/20 06/12/20 06/12/20 Range/Units 11:43 12:05 12:05 WBC 15.9 H (4.0-10.0) 10^3/ uL RBC 4.97 (4.1-5.3) 10^6/u L Hgb 14.9 (11.7-16.6) g/dL Hct 43.9 (42.0-52.0) % MCV 88.3 (80-94) fL MCH 30.0 (28.0-34.0) pg MCHC 33.9 (30.0-36.0) g/dL RDW 12.6 (12.1-15.1) % Plt Count 262 (130-400) 10^3/c mm MPV 11.9 H (7.4-10.4) fL Neut % (Auto) 87.6 % Lymph % (Auto) 6.5 % [place] % (Auto) 5.0 % Eos % (Auto) 0.2 % Baso % (Auto) 0.2 % Neut # (Auto) 13.93 H (1.8-7.7) 10^3/u L Lymph # (Auto) 1.0 (0.8-4.8) 10^3/u L [place] # (Auto) 0.8 (0.2-0.9) 10^3/u L Eos # (Auto) 0.0 (0.0-0.8) 10^3/u L Baso # (Auto) 0.0 (0.0-0.1) 10^3/u L Nucleated RBC % (a uto) 0 % Nucleated RBCs # 0.0 /100WBC Sodium 130 L (136-145) mmol/L Potassium 4.4 (3.5-5.1) mmol/L Chloride 93 L (98-107) mmol/L Carbon Dioxide 23 (22-29) mmol/L Anion Gap 18.4 (5-19) BUN 13 (6-20) mg/dL Creatinine 0.9 (0.7-1.2) mg/dL GFR Calculation 92.1 (90-130) mL/min Glucose 465 H (65-115) mg/dL POC Glucose 449 H (70-110) mg/dL Calculated Osmolal ity 290 (285-295) mOsm/k g Lactate (0.5-2.2) mmol/L Calcium 9.4 (8.5-10.5) mg/dL Serum Ketones (Negative) 06/12/20 06/12/20 06/12/20 Range/Units 12:05 12:05 14:01 WBC (4.0-10.0) 10^3/ uL RBC (4.1-5.3) 10^6/u L Hgb (11.7-16.6) g/dL Hct (42.0-52.0) % MCV (80-94) fL MCH (28.0-34.0) pg MCHC (30.0-36.0) g/dL RDW (12.1-15.1) % Plt Count (130-400) 10^3/c mm MPV (7.4-10.4) fL Neut % (Auto) % Lymph % (Auto) % [place] % (Auto) % Eos % (Auto) % Baso % (Auto) % Neut # (Auto) (1.8-7.7) 10^3/u L Lymph # (Auto) (0.8-4.8) 10^3/u L [place] # (Auto) (0.2-0.9) 10^3/u L Eos # (Auto) (0.0-0.8) 10^3/u L Baso # (Auto) (0.0-0.1) 10^3/u L Nucleated RBC % (a uto) % Nucleated RBCs # /100WBC Sodium (136-145) mmol/L Potassium (3.5-5.1) mmol/L Chloride (98-107) mmol/L Carbon Dioxide (22-29) mmol/L Anion Gap (5-19) BUN (6-20) mg/dL Creatinine (0.7-1.2) mg/dL GFR Calculation (90-130) mL/min Glucose (65-115) mg/dL POC Glucose 332 H (70-110) mg/dL Calculated Osmolal ity (285-295) mOsm/k g Lactate 1.4 (0.5-2.2) mmol/L Calcium (8.5-10.5) mg/dL Serum Ketones Negative (Negative) Discharge Plan Discharge Patient Disposition: Admitted As Inpatient Clinical Impression: Abscess, Diabetes, Cellulitis Condition: Stable Coding Level of Care Code ED [employer] for [facility] Fwd Exam Comprehensive
[2020-06-12 11:47] LABS: Glucose Point of Care 449 mg/dL (70-110)
[2020-06-12 12:17] LABS: Basophils % 0.2 %; Eosinophils % 0.2 %; Hematocrit 43.9 % (42.0-52.0); Hemoglobin 14.9 g/dL (11.7-16.6); Lymphocytes % 6.5 %; Mean Corpuscular HGB Conc 33.9 g/dL (30.0-36.0); Mean Corpuscular Volume 88.3 fL (80-94); Mean Platelet Volume 11.9 fL (7.4-10.4); Monocytes # 0.8 10^3/uL (0.2-0.9); Neutrophils # 13.93 10^3/uL (1.8-7.7); Neutrophils % 87.6 %; Nucleated Red Blood Cells % 0 %; Platelet Count 262 10^3/cmm (130-400); Red Blood Count 4.97 10^6/uL (4.1-5.3); Red Cell Distribution Width 12.6 % (12.1-15.1); White Blood Count 15.9 10^3/uL (4.0-10.0)
[2020-06-12] MEDS: sulfamethoxazole-trimeth DS 160-800 mg Tablet 1 TAB PO (12:21)
[2020-06-12] MEDS: sodium chloride 0.9% 1,000 ML 999 ML IV (12:22)
[2020-06-12] MEDS: ketorolac 30 mg/mL INJ 15 MG IVP (12:29)
[2020-06-12 12:33] LABS: Ketone (Acetest) Serum Negative (Negative)
[2020-06-12 12:53] LABS: Blood Urea Nitrogen 13 mg/dL (6-20); Calcium 9.4 mg/dL (8.5-10.5); Carbon Dioxide 23 mmol/L (22-29); Chloride 93 mmol/L (98-107); Glomerular Filtration Rate 92.1 mL/min (90-130); Glucose 465 mg/dL (65-115); Osmolality Calculated 290 mOsm/kg (285-295); Sodium 130 mmol/L (136-145)
[2020-06-12 12:54] LABS: Anion Gap 18.4 (5-19); Potassium 4.4 mmol/L (3.5-5.1)
[2020-06-12 13:17] LABS: Lactate (Lactic Acid level) 1.4 mmol/L (0.5-2.2)
[2020-06-12] MEDS: piperacillin-tazobactam 3.375 GM in sodium chloride 0.9% (plus) 50 ML IV ×2 (13:33→17:44)
--- NOTE | 2020-06-12 14:04 | PC.PHAR ---
pts states the pt hasnt taken his insulin for 3 months-pt states the medication didnt work-pt and pts states the medications entered are the only medications the pt is taking-
[2020-06-12 14:06] LABS: Glucose Point of Care 332 mg/dL (70-110)
[2020-06-12] MEDS: vancomycin 1,000 MG in sodium chloride 0.9% 250 ML 250 MG IV (14:07)
--- NOTE | 2020-06-12 15:03 | PM.HP ---
Documented by User: Rosalina Causey [facility] STDNT 06/12/20 15:22 Providers/Chief Complaint Primary Care Provider: Malvin Diggs Chief Complaint: Rt foot pain History of Present Illness Cooper Cruz is a 45 year old male c/o R foot abscess located on the dorsum of the foot below the 1st digit. Pt states he cut his foot about 2-3 weeks ago, but it did not look infected at the time. His states they checked it every day after that and says it looked fine. About 5 days ago they noticed a reddish-purplish spot that was 1 inch in diameter on the dorsum of the R foot below the 1st digit. He and his thought it was a contusion from stepping on a rock. Pt and his state the area didn't get swollen until this morning. Pt states the his first through third digits feel tender; additionally pt states the top half of his R foot feels tender as well. Pt states he took indomethacin and Aleve w/o relief of symptoms. Pt denies fever, chills, and NVD. Review of Systems General: Reports: 10 or more systems reviewed and unremarkable except in HPI and below Const: Denies: fever(s) or chills Skin/Breast: Reports: other (Redness/swelling on dorsum of R foot below first digit) Medications/Allergies Home Medications Medication Instructions Recorded Confirmed Last Taken Type indomethacin 25 - 50 mg PO PRN 06/12/20 06/12/20 06/12/20 History insulin aspart U-100 [Novolog See Rx Instructions .ROUTE .COMPLEX 06/12/20 06/12/20 Unknown History Flexpen U-100 Insulin] insulin glargine [Lantus Solostar 18 unit SUBCUT DAILY 06/12/20 06/12/20 Unknown History U-100 Insulin] naproxen sodium [Aleve] 440 mg PO BEDTIME 06/12/20 06/12/20 06/11/20 History been taking a week sertraline 50 mg PO QAM 06/12/20 06/12/20 06/12/20 History temazepam 15 mg PO BEDTIME 06/12/20 06/12/20 06/11/20 History Allergies Allergy/AdvReac Type Severity Reaction Status Date / Time No Known Allergies Allergy Verified 06/12/20 14:03 PFSH Acute PFSH: Medical History Diabetes DM1 vs ISAAC? Intolerant of chronic insulin or oral therapy. [place] syndrome PTSD (post-traumatic stress disorder) Surgical History (Updated 06/12/20 @ 17:03 by Bradford Aguiar MD) H/O knee surgery H/O lymph node excision H/O shoulder surgery No history of previous surgery Family History Other Healthy adult Social History Smoking and tobacco status: former smoker Quit status (tobacco): has quit using tobacco Year quit tobacco: 2-3 ya Alcohol intake: current Alcohol intake frequency: holidays/special occasions only Lives independently: Yes Household members: spouse Marital status: service: Yes status: Retired Current occupational status: student Vitals/I&O/Wt Last Vital Signs Temp 97.5 F L 06/12/20 11:03 Pulse 81 06/12/20 13:22 Resp 16 06/12/20 13:22 BP 132/83 06/12/20 14:36 Pulse Ox 95 06/12/20 14:36 06/12/20 06/12/20 06/12/20 06:59 14:59 22:59 Intake Total 1050 / 1050 Balance 1050 / 1050 Weight last 48 hrs Weight 68.039 kg Physical Exam Const: COMMON NORMALS: no acute distress, average body habitus and patient oriented x3 GENERAL APPEARANCE: cooperative, comfortable, well kempt and well developed HENMT: COMMON NORMALS: normocephalic, atraumatic, hearing grossly normal bilaterally, external ears normal, TM's normal bilaterally, Normal nasal mucous membranes and turbinates present, moist oral mucous membranes, oropharynx normal, dentition normal and gingiva normal FACE & SINUS: normal facial exam NOSE: Normal external nose present, Normal nares present and Normal nasal mucous membranes and turbinates present Eye: COMMON NORMALS: Equal, round and reactive pupils present, EOMs intact bilaterally, conjunctivae normal and no scleral icterus GENERAL EYE: appearance normal, both eyes and all related structures and normal light reflex Resp: COMMON NORMALS: normal respiratory effort, No retractions, No use of accessory muscles and clear to auscultation bilaterally Cardio: COMMON NORMALS: no JVD, regular rate, regular rhythm, S1 normal heart sound present, S2 normal heart sound present, No gallops present (Cardio), No clicks present (Cardio), No murmurs present (Cardio), No rub (Cardio) and Peripheral pulses 2+ throughout GI: COMMON NORMALS: Normal to inspection, nondistended, normoactive bowel sounds present, Soft to palpation, non-tender, No hepatosplenomegaly present and no masses Skin: WOUNDS: Yes wounds noted (2cm laceration and 1 in contusion on dorsum of R foot below 1st digit ) with surrounding erythema Data : 06/12/20 12:05 06/12/20 12:05 Micro: Microbiology 06/12/20 13:55 Blood Culture - Preliminary Blood SPECIMEN COLLECTED 06/12/20 13:50 Blood Culture - Preliminary Blood SPECIMEN COLLECTED Coding Level of Care Code Acute Planning Manager for [facility] Fwd Exam Comprehensive Diagnoses Diabetic foot infection E11.628; L08.9 Sepsis A41.9 Diabetes E11.9 Documented by User: Bradford Aguiar MD 06/12/20 17:17 Providers/Chief Complaint Chief Complaint: Rt foot pain Review of Systems Const: Denies: fever(s), chills, body aches or malaise Eyes: Denies: change in vision or eye redness ENMT: Denies: throat pain, oral sores or ear or mastoid pain Card: Denies: chest pain, edema, pre-syncope or dyspnea on exertion Resp: Denies: dyspnea, productive cough, change in phlegm color or hemoptysis GI: Denies: abdominal pain, nausea, vomiting, diarrhea, constipation, hematochezia or melena : Denies: flank pain, difficulty urinating, urinary frequency or hematuria Musc: Denies: back pain, joint swelling or joint redness Skin/Breast: Denies: rash, sores or new lesions Neuro: Denies: headache(s), numbness in extremities, weakness in extremities, dizziness, confusion or seizure-like activity Endo: Denies: polyuria or polydipsia Gm/Lymph: Denies: easy bleeding or purpura All/Imm: Denies: urticaria, throat swelling or tongue swelling Medications/Allergies Home Medications Medication Instructions Recorded Confirmed Last Taken Type indomethacin 25 - 50 mg PO PRN 06/12/20 06/12/20 06/12/20 History insulin aspart U-100 [Novolog See Rx Instructions .ROUTE .COMPLEX 06/12/20 06/12/20 Unknown History Flexpen U-100 Insulin] insulin glargine [Lantus Solostar 18 unit SUBCUT DAILY 06/12/20 06/12/20 Unknown History U-100 Insulin] naproxen sodium [Aleve] 440 mg PO BEDTIME 06/12/20 06/12/20 06/11/20 History been taking a week sertraline 50 mg PO QAM 06/12/20 06/12/20 06/12/20 History temazepam 15 mg PO BEDTIME 06/12/20 06/12/20 06/11/20 History Allergies Allergy/AdvReac Type Severity Reaction Status Date / Time No Known Allergies Allergy Verified 06/12/20 14:03 PFSH Acute PFSH: Medical History Diabetes DM1 vs ISAAC? Intolerant of chronic insulin or oral therapy. [place] syndrome PTSD (post-traumatic stress disorder) Surgical History (Updated 06/12/20 @ 17:03 by Bradford Aguiar MD) H/O knee surgery H/O lymph node excision H/O shoulder surgery No history of previous surgery Family History Other Healthy adult Social History Smoking and tobacco status: former smoker Quit status (tobacco): has quit using tobacco Year quit tobacco: 2-3 ya Alcohol intake: current Alcohol intake frequency: holidays/special occasions only Lives independently: Yes Household members: spouse Marital status: service: Yes status: Retired Current occupational status: student Physical Exam Skin: NARRATIVE SKIN EXAM: Edema of soft tissue at the 1st MTP joint, s/p I&D small abscess over the ball of the foot in ER. Erythema areas localized on plantar surface prox to 1st MTP, dorsally proximal to 1st MTP, and dorsally overa arch of the foot. Mild swelling of distal foot. Data : 06/12/20 12:05 06/12/20 12:05 A&P Assessment and plan (1) Diabetic foot infection: With original foot injury close to 3 weeks ago initially healing over, but since with progressive redness, foot pain to distal foot, with patches of redness over plantar surface of the ball of the right foot, as well as dorsally proximal to first MTP, and over the arch of the foot with this area of erythema appearing yesterday. Denies having any antibiotic treatment prior to arrival. Small abscess was noted in ER and I&D was performed with minimal amount drained, with culture sent for I&D. CT scan performed without any collections noted. Could not definitely exclude osteomyelitis. With possible sepsis on presentation, leukocytosis 15.9, sinus tachycardia 108. Blood cultures collected. Started on Zosyn, vancomycin. Received 1 dose of cephalexin and Bactrim p.o. Due to persistent/progressive symptoms currently admitted for IV antibiotic treatment. With history of diabetes, recently not taking any insulin with progressive symptoms over 3 weeks we will also assessed by MRI of the foot. Follow-up blood cultures, tissue cultures from drainage in ER. He would benefit from podiatry follow-up. Status: Acute (2) Sepsis: With leukocytosis 15.9. Tachycardia 108. Blood culture collected. Started on antibiotic. Received 1 L fluid bolus in ER. With improvement in tachycardia. IV antibiotics as above. Follow blood cultures. Monitor vital signs. Status: Acute (3) Diabetes: Reports history of difficult to manage diabetes for which was assessed even at tertiary centers, has been following with endocrinology. Due to frustration with lack of improvement status recently has not taken any insulin at all. Prior to that was on 18-20 units of Lantus once a day, as well as sliding scale short acting insulin. Assess A1c. For now we will restart Lantus at 15 units, monitor glucose with moderate SSI. Status: Acute Additional A&P Information Mild hyponatremia: 130. Monitor. Liberalize sodium intake. [place] syndrome, PTSD: Please be cautious not to startle him if possible. Cautious when waking him up. Attestations Medical Necessity Statement*: Admission of over 2 midnights is admitted for assessment of management of diabetic foot infection with sepsis progressive over several weeks, additional assessment to exclude deep infection. Other Attestations: I have reviewed and independently confirmed findings by the medical student formulating the assessment and plan as above, my corrections to history, review of systems and independent physical examination are included in the note above. Coding Level of Care Code Acute Planning Manager for [facility] Fwd Exam Comprehensive Diagnoses Diabetic foot infection E11.628; L08.9 Sepsis A41.9 Diabetes E11.9
--- NOTE | 2020-06-12 15:13 | CT_ITS ---
WS: [id number] CT RIGHT FOOT WITH AND WITHOUT CONTRAST. HISTORY: evaluate abscess and osteomyelitis Technique: All CT scans at [facility] use at least one of these dose optimization techniq ues: automated exposure control; mA and/or kV adjustment per patient size (includes targeted exams wh ere dose is matched to clinical indication); or iterative reconstruction. DLP: 384.13 mGy-cm. COMPARISON: None available. There is soft tissue edema surrounding the foot, greatest towards the toes. No focal collection or fl uid identified. There is no fracture or bone destruction. No subluxation or malalignment. Normal tars al/metatarsal alignment. CT/CT foot RT wo/w con [id number] IMPRESSION: 1. Cannot confirm abscess or osteomyelitis by CT. 2. Diffuse mild to moderate soft tissue edema surrounding the foot but greates t towards the metatarsal heads and toes.
[2020-06-12] MEDS: iohexol 300 mg/mL 100 mL Btl IV (15:20)
[2020-06-12 16:43] LABS: Glucose Point of Care 99 mg/dL (70-110)
[2020-06-12] MEDS: heparin 5,000 unit/mL INJ 1 mL 5000 UNIT SUBCUT (17:44)
[2020-06-12 20:41] LABS: Glucose Point of Care 370 mg/dL (70-110)
[2020-06-12] MEDS: oxyCODONE-APAP 5-325 mg Tablet 1 TAB PO (21:12)
[2020-06-12] MEDS: temazepam 15 mg Capsule PO (21:12)
[2020-06-12] MEDS: insulin glargine 100 units/1 mL 15 UNIT SUBCUT (21:13)
[2020-06-12 21:19] LABS: Estmated Average Glucose 318; Hemoglobin A1C 12.7 % (4.0-6.0)
[2020-06-13] VITALS (10 sets, daily range): BP systolic 102–117; BP diastolic 67–79; PULSE 69–88; RESP 16–18; TEMP 36.2–37.1; O2SAT 96–99
[2020-06-13] MEDS: vancomycin 1,250 MG/250 ML PIGGYBACK 200 MG IV ×2 (00:50→16:59)
[2020-06-13] MEDS: heparin 5,000 unit/mL INJ 1 mL 5000 UNIT SUBCUT ×3 (00:51→16:59)
[2020-06-13] MEDS: oxyCODONE-APAP 5-325 mg Tablet 1 TAB PO ×4 (01:25→19:37)
[2020-06-13] MEDS: piperacillin-tazobactam 3.375 GM in sodium chloride 0.9% (plus) 50 ML IV ×3 (03:39→18:22)
[2020-06-13 05:23] LABS: Basophils # 0.1 10^3/uL (0.0-0.1); Basophils % 0.4 %; Eosinophils # 0.2 10^3/uL (0.0-0.8); Eosinophils % 1.5 %; Hematocrit 38.4 % (42.0-52.0); Lymphocytes # 2.2 10^3/uL (0.8-4.8); Lymphocytes % 17.2 %; Mean Corpuscular HGB Conc 33.9 g/dL (30.0-36.0); Mean Corpuscular Hemoglobin 29.8 pg (28.0-34.0); Mean Corpuscular Volume 88.1 fL (80-94); Mean Platelet Volume 11.8 fL (7.4-10.4); Monocytes # 0.8 10^3/uL (0.2-0.9); Monocytes % 6.2 %; Neutrophils % 74.3 %; Nucleated Red Blood Cells % 0 %; Platelet Count 228 10^3/cmm (130-400); Red Blood Count 4.36 10^6/uL (4.1-5.3); Red Cell Distribution Width 12.6 % (12.1-15.1); White Blood Count 12.5 10^3/uL (4.0-10.0)
[2020-06-13 05:37] LABS: Anion Gap 13.6 (5-19); Blood Urea Nitrogen 13 mg/dL (6-20); Calcium 8.5 mg/dL (8.5-10.5); Carbon Dioxide 25 mmol/L (22-29); Chloride 98 mmol/L (98-107); Glomerular Filtration Rate 105.5 mL/min (90-130); Glucose 168 mg/dL (65-115); Osmolality Calculated 280 mOsm/kg (285-295); Potassium 3.6 mmol/L (3.5-5.1); Sodium 133 mmol/L (136-145)
[2020-06-13] MEDS: sertraline 50 mg Tablet PO (05:44)
[2020-06-13 06:29] LABS: Glucose Point of Care 181 mg/dL (70-110)
--- NOTE | 2020-06-13 08:30 | PM.PN ---
Documented by User: OVIDIO Greene STDNT 06/13/20 09:50 Subjective Subjective: Interval history: Mr. Cruz is a 45 yo who presented to ED yesterday c/o R foot abscess. Today he says his foot is still swollen and hurts more than yesterday. He denies fever, chills, NVD. Medications: Reviewed: Yes Vitals/I&O/Wt Last Vital Signs Temp 97.5 F L 06/13/20 04:00 Pulse 72 06/13/20 04:00 Resp 16 06/13/20 05:45 BP 102/67 06/13/20 04:00 Pulse Ox 96 06/13/20 04:00 06/12/20 06/13/20 06/13/20 22:59 06:59 14:59 Intake Total 1010 / 2060 500 / 2560 Output Total 625 / 625 600 / 1225 Balance 385 / 1435 -100 / 1335 Weight last 48 hrs Weight 68.039 kg Physical Exam Const: COMMON NORMALS: no acute distress, average body habitus, patient oriented x3, no limitations and healthy appearing GENERAL APPEARANCE: cooperative, comfortable, well kempt and well developed HENMT: COMMON NORMALS: normocephalic, atraumatic, hearing grossly normal bilaterally, external ears normal, EAC's normal, TM's normal bilaterally, Normal external nose present, Normal nasal mucous membranes and turbinates present and moist oral mucous membranes HEAD & SCALP: normocephalic and atraumatic FACE & SINUS: normal facial exam NOSE: Normal external nose present and Normal nasal mucous membranes and turbinates present EXTERNAL EAR: Yes external ears normal EXTERNAL AUDITORY CANAL: EAC's normal TYMPANIC MEMBRANE: TM's normal bilaterally MOUTH: Normal oral and palatal mucosa present, lip normal, tongue normal and Normal salivary glands and ducts present Eye: COMMON NORMALS: Equal, round and reactive pupils present, EOMs intact bilaterally, conjunctivae normal and no scleral icterus GENERAL EYE: appearance normal, both eyes and all related structures and normal light reflex CONJUNCTIVA: Yes conjunctivae normal PUPIL: Yes Equal, round and reactive pupils present DIRECT OPHTHALMOSCOPY: Yes normal light reflex Neck/C-Spine: COMMON NORMALS: no JVD Resp: COMMON NORMALS: normal respiratory effort, No retractions, No use of accessory muscles and clear to auscultation bilaterally AUSCULTATION: clear to auscultation bilaterally Cardio: COMMON NORMALS: no JVD, regular rate, regular rhythm, S1 normal heart sound present, S2 normal heart sound present, No gallops present (Cardio), No clicks present (Cardio), No murmurs present (Cardio), No rub (Cardio) and Peripheral pulses 2+ throughout RATE: regular rate RHYTHM: regular rhythm HEART SOUNDS: S1 normal heart sound present and S2 normal heart sound present PERIPHERAL PULSES: Peripheral pulses 2+ throughout GI: COMMON NORMALS: Normal to inspection, nondistended, normoactive bowel sounds present, Soft to palpation, non-tender, No hepatosplenomegaly present and no masses PALPATION: Yes Soft to palpation and Yes No hepatosplenomegaly present Neuro: COMMON NORMALS: patient oriented x3 Psych: APPEARANCE: Yes well kempt Skin: WOUNDS: Yes wounds noted (2cm laceration and 1 in contusion on dorsum of R foot below 1st digit ) with surrounding erythema Data : 06/13/20 04:21 06/13/20 04:21 Micro: Microbiology 06/12/20 16:08 Gram Stain - Final Toe - Abscess 06/12/20 13:55 Blood Culture - Preliminary Blood SPECIMEN COLLECTED 06/12/20 13:50 Blood Culture - Preliminary Blood SPECIMEN COLLECTED A&P Assessment and plan (1) Diabetic foot infection: With original foot injury close to 3 weeks ago initially healing over, but since with progressive redness, foot pain to distal foot, with patches of redness over plantar surface of the ball of the right foot, as well as dorsally proximal to first MTP, and over the arch of the foot with this area of erythema appearing yesterday. Denies having any antibiotic treatment prior to arrival. Small abscess was noted in ER and I&D was performed with minimal amount drained, with culture sent for I&D. CT scan performed without any collections noted. Could not definitely exclude osteomyelitis. With possible sepsis on presentation, leukocytosis 15.9, sinus tachycardia 108. Blood cultures collected. Started on Zosyn, vancomycin. Received 1 dose of cephalexin and Bactrim p.o. Due to persistent/progressive symptoms currently admitted for IV antibiotic treatment. With history of diabetes, recently not taking any insulin with progressive symptoms over 3 weeks we will also assess via MRI of the foot. Follow-up blood cultures, tissue cultures from drainage in ER. He would benefit from podiatry follow-up. Status: Acute (2) Sepsis: Leukocytosis decreased to 12.5 this morning. Patient has a pulse of 72 today. Continue IV antibiotics as above. Follow blood cultures. Monitor vital signs. Status: Acute (3) Diabetes: Reports history of difficult to manage diabetes for which was assessed even at tertiary centers, has been following with endocrinology. Due to frustration with lack of improvement status recently has not taken any insulin at all. Prior to that was on 18-20 units of Lantus once a day, as well as sliding scale short acting insulin. A1c is 12.7%. Glucose at 4am this morning was 168, POC glucose was 181. This is improved from yesterday, but this is also before the patient had any meals. Continue Lantus at 15 units, and continue to measure glucose before meals and before bedtime. Status: Acute Additional A&P Information Mild hyponatremia: 133. Monitor. Liberalize sodium intake. [place] War syndrome, PTSD: Please be cautious not to startle him if possible. Be cautious when waking him up. Coding Level of Care Code Acute Insurance Follow Up Representative for Ch[facility] Fwd Exam Comprehensive Diagnoses Diabetic foot infection E11.628; L08.9 Sepsis A41.9 Diabetes E11.9 Documented by User: Bradford Aguiar MD 06/13/20 17:48 Data : 06/13/20 04:21 06/13/20 04:21 Attestations Medical Necessity Statement*: Continue admission for assessment management of diabetic foot infection with poorly controlled diabetes and elevated risk of infection progression. Other Attestations: Medical students note above reviewed. Findings independently confirmed independently spoken to examine patient. He has been having more pain in his forefoot today, starting proximally from the ball of the right foot to the distal foot and toes. There is perhaps mildly less intense patches of erythema is noted yesterday. His leukocytosis does show some improvement. Tachycardia resolved and so possible sepsis improved. He is afebrile. His A1c is noted to be 12.7. He is at elevated risk of treatment failure and complicated infections of the foot. MRI was obtained due to nondiagnostic CT scan. No osteomyelitis noted. Extensive cellulitis surrounding the foot greatest at the level of metatarsals and extending into the deep soft tissues. There is a small phlegmon measuring 1.5 x 1.5 cm along the plantar surface between the first and second metatarsals but not an abscess at this time. Surgical assessment is appreciated. For now continue IV antibiotics. Continue daily assessments. Follow-up culture results from drainage of small collection in ER. Continue management of diabetes. His glucose today is better after reinitiation of Lantus, sliding scale insulin. Hyponatremia is showing improvement. GEN: He is awake, alert, not in acute distress. HEENT: MMM Neck: No JVD, no lymphadenopathy. Card: RRR, no MRG Pulmonary: Lungs clear to auscultation Abdo: Soft, nontender, distended Extremities: No edema Right foot: Swelling persists in plantar surface medially and proximally of the ball of the right foot, with erythema little bit proximally, as well as dorsally, and patchy erythema also dorsally over the arch of the foot. Erythema is slightly less intense today. No purulent drainage is noted. Foot is warm, well perfused, slightly tender to touch. Bradford Aguiar Attending physician Coding Level of Care Code Acute Insurance Follow Up Representative for g Fwd Exam Comprehensive Diagnoses Diabetic foot infection E11.628; L08.9 Sepsis A41.9 Diabetes E11.9
--- NOTE | 2020-06-13 09:05 | PC.CHAP ---
Pastoral Care Encounter/Spiritual Assessment Type of Contact [] Declined skidway worker visit [] Patient/Family/Request visit [] Outpatient visit [] Follow-up visit [] Physician referral [] Code/Alert [x] Routine visit [] Staff referral [] Actively dying [] Patient sleeping [] Family support [] [] Out of room [] Palliative care [] [] Receiving care in room [] Pre-surgical visit [] Trauma [] Long length of stay [] ICU visit [] Other: Relational/Emotional Strength [] Patient feels connected with others/family/visitors/staff [] Distress [] Loneliness/isolation [] Abandonment Spirituality of Patient [x] Person of Eleanor [] Attends Cheondoism of their Eleanor [] Believes in Prayer [] Reads Bible or Buddhism materials [] There are Spiritual issues to be addressed Tow Truck 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 Interventions [] Prayer [] Active listening [] Non-anxious presence [] Spiritual/emotional support [] Crisis/trauma care [] Spiritual counseling [] Bereavement support [] Provided bereavement packet [] Provided Bible/devotional materials [] Provided toy/stuffed animal, coloring book to patient or family member [] Provided Communion [] Anointing/[place] [] Salvation [] Completed spiritual assessment [] Other: Impact on Illness or Injury [] Angry [] Fearful [] Anxious [] Often cries [] Exhaustion [] Unable to work [] Unable to attend alevism [] Unable to walk/stand [] Unable to read [] Unable to drive [] Unable to eat/drink [] Unable to sleep [] Unable to be with family [] Patient intubated [] Other: Summary dec/ind prayer Time spent with patient +15 min
[2020-06-13 12:31] LABS: Glucose Point of Care 255 mg/dL (70-110)
[2020-06-13 16:03] LABS: Glucose Point of Care 201 mg/dL (70-110)
--- NOTE | 2020-06-13 16:55 | MR_ITS ---
WS: [id number] MRI RIGHT FOOT with and without CONTRAST. COMPARISON: CT 06/12/2020 Multiplanar, multisequence imaging is performed with and without contrast. No acute fractures or dislocations. No marrow changes on the T1 or STIR sequences to suggest osteomye litis. There is mild diffuse soft tissue edema with enhancement throughout the foot. This is predomin antly along the lateral ankle and foot but extends into the deep soft tissues beginning at the level of the distal tarsal bones and through the metatarsals. There is no well formed collection or abscess identified. Soft tissue edema extends to surround the metatarsals. Phlegmonous area between the firs t and second metatarsals measures 1.5 x 1.1 cm along the plantar surface of the foot. This is not a w ell-formed abscess at this time. No significant degenerative changes involving the toes or tarsal bones. No calcaneal spur. Distal Ach illes tendon is negative. MR/MR foot RT wo/w con [id number] IMPRESSION: 1. No osteomyelitis. 2. Extensive cellulitis surrounding the foot, greatest at the level of the met atarsals and extending into the deep soft tissues. There is a small phlegmon me asuring 1.5 x 1.5 cm along the plantar surface between the first and second met atarsals but not an abscess at this time.
--- NOTE | 2020-06-13 17:54 | P.CONIM_ITS ---
Providers/Reason For Consult Consulting Physican/Specialty*: Bradford Aguiar MD Reason for Consult*: Cellulitis right foot Attending Physician: Bradford Aguiar Primary Care Provider: Malvin Diggs History of Present Illness History of Present Illness Cooper Cruz is a 45 year old male who presented with pain redness and swelling on the plantar aspect of his right foot over the last couple of days. Patient states that he had a small callus at the peeled off about a week ago and subsequently had some swelling which eventually looked okay but over the last 48 hours the pain redness and swelling setting. Patient is a poorly controlled diabetic but denies any peripheral neuropathy Review of Systems General: Reports: 10 or more systems reviewed and unremarkable except in HPI and below Meds/Allergies Home Medications and Allergies Home Medications Medication Instructions Recorded Confirmed Last Taken Type indomethacin 25 - 50 mg PO PRN 06/12/20 06/12/20 06/12/20 History insulin aspart U-100 [Novolog See Rx Instructions .ROUTE .COMPLEX 06/12/20 06/12/20 Unknown History Flexpen U-100 Insulin] insulin glargine [Lantus Solostar 18 unit SUBCUT DAILY 06/12/20 06/12/20 Unknown History U-100 Insulin] naproxen sodium [Aleve] 440 mg PO BEDTIME 06/12/20 06/12/20 06/11/20 History been taking a week sertraline 50 mg PO QAM 06/12/20 06/12/20 06/12/20 History temazepam 15 mg PO BEDTIME 06/12/20 06/12/20 06/11/20 History Allergies Allergy/AdvReac Type Severity Reaction Status Date / Time No Known Allergies Allergy Verified 06/12/20 14:03 Current Medications Current Medications Generic Name Dose Route Start Last Admin Trade Name Freq PRN Reason Stop Dose Admin Heparin Sodium (Beef Lung) 5,000 unit 06/12/20 17:30 06/13/20 16:59 Heparin 5,000 Unit/Ml Inj 1 Ml SUBCUT 5,000 unit Q8H SUREKHA Administration Piperacillin Sod/Tazobactam 50 mls @ 12.5 mls/hr 06/12/20 19:15 06/13/20 12:43 Sod 3.375 gm/ Sodium Chloride IV 12.5 mls/hr Q8H SUREKHA Administration Protocol Vancomycin/PEG/NADA/Lysine/Water 1,250 mg in 250 mls @ 200 mls/hr 06/13/20 01:00 06/13/20 16:59 Vancocin IV 200 mls/hr Q12H SUREKHA Administration Insulin Aspart 0 unit 06/12/20 18:00 06/13/20 17:13 Insulin Aspart 100 Unit/1 Ml SUBCUT 6 unit WM&BEDTIME SUREKHA Administration Protocol Insulin Glargine 15 unit 06/12/20 21:00 06/12/20 21:13 Insulin Glargine 100 Units/1 Ml SUBCUT 15 unit BEDTIME SUREKHA Administration Oxycodone/Acetaminophen 1 tab 06/12/20 17:17 06/13/20 14:29 Oxycodone-Apap 5-325 Mg Tablet PO 1 tab Q4H PRN Administration SEVERE PAIN Sertraline HCl 50 mg 06/13/20 06:00 06/13/20 05:44 Sertraline 50 Mg Tablet PO 50 mg QAM SUREKHA Administration Temazepam 15 mg 06/12/20 21:00 06/12/20 21:12 Temazepam 15 Mg Capsule PO 15 mg BEDTIME SUREKHA Administration PFSH Acute PFSH: Medical History Diabetes DM1 vs ISAAC? Intolerant of chronic insulin or oral therapy. Gout [place] syndrome PTSD (post-traumatic stress disorder) Surgical History H/O knee surgery H/O lymph node excision H/O shoulder surgery No history of previous surgery Family History Other Healthy adult Social History Smoking and tobacco status: former smoker Quit status (tobacco): has quit using tobacco Year quit tobacco: 2-3 ya Alcohol intake: current Alcohol intake frequency: holidays/special occasions only Lives independently: Yes Household members: spouse Marital status: service: Yes status: Retired Current occupational status: student Vitals/I&O/Wt Last Vital Signs Temp 98.0 F 06/13/20 15:43 Pulse 86 06/13/20 15:43 Resp 17 06/13/20 15:43 BP 114/78 06/13/20 15:43 Pulse Ox 96 06/13/20 15:43 06/13/20 06/13/20 06/13/20 06:59 14:59 22:59 Intake Total 500 / 2560 890 / 1130 240 / 1130 Output Total 600 / 1225 475 / 475 Balance -100 / 1335 415 / 655 240 / 655 Weight last 48 hrs Weight 150 lb Physical Exam Narrative: EXAM NARRATIVE: HEENT: Normocephalic Eye: Sclera /conjunctiva normal Abdomen: Soft to palpation Neurological: Oriented to place person and time Skin: Intact, tender, area of erythema between first and second metatarsal right foot, Data Micro: Micro: Microbiology 06/12/20 13:50 Blood Culture - Pr eliminary Blood NEGATIVE TO PILY E 06/12/20 13:55 Blood Culture - Pr eliminary Blood NEGATIVE TO PILY E 06/12/20 16:08 Gram Stain - Final Toe - Abscess A&P Assessment and plan (1) Diabetic foot infection: 45-year-old male with right foot cellulitis likely secondary to trauma, poorly controlled diabetic. The site was aspirated in the ER by the ER physician. 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
[2020-06-13] MEDS: temazepam 15 mg Capsule PO (20:32)
[2020-06-13] MEDS: insulin glargine 100 units/1 mL 15 UNIT SUBCUT (20:32)
[2020-06-13 21:25] LABS: Glucose Point of Care 245 mg/dL (70-110)
[2020-06-14] VITALS (11 sets, daily range): BP systolic 112–135; BP diastolic 70–86; PULSE 74–85; RESP 16–20; TEMP 36.6–37.1; O2SAT 95–96
[2020-06-14] MEDS: piperacillin-tazobactam 3.375 GM in sodium chloride 0.9% (plus) 50 ML IV ×3 (03:02→18:29)
[2020-06-14] MEDS: heparin 5,000 unit/mL INJ 1 mL 5000 UNIT SUBCUT ×3 (03:02→16:50)
[2020-06-14] MEDS: oxyCODONE-APAP 5-325 mg Tablet 1 TAB PO ×3 (03:07→14:16)
[2020-06-14] MEDS: vancomycin 1,250 MG/250 ML PIGGYBACK 200 MG IV ×2 (05:46→16:50)
[2020-06-14] MEDS: sertraline 50 mg Tablet PO (05:46)
[2020-06-14 06:22] LABS: Basophils % 0.4 %; Eosinophils # 0.1 10^3/uL (0.0-0.8); Eosinophils % 1.2 %; Hematocrit 37.8 % (42.0-52.0); Hemoglobin 12.7 g/dL (11.7-16.6); Lymphocytes # 1.7 10^3/uL (0.8-4.8); Lymphocytes % 15.6 %; Mean Corpuscular HGB Conc 33.6 g/dL (30.0-36.0); Mean Corpuscular Hemoglobin 30.1 pg (28.0-34.0); Mean Corpuscular Volume 89.6 fL (80-94); Mean Platelet Volume 11.9 fL (7.4-10.4); Monocytes # 0.7 10^3/uL (0.2-0.9); Monocytes % 6.2 %; Neutrophils # 8.34 10^3/uL (1.8-7.7); Neutrophils % 76.2 %; Nucleated Red Blood Cells % 0 %; Platelet Count 216 10^3/cmm (130-400); Red Blood Count 4.22 10^6/uL (4.1-5.3); Red Cell Distribution Width 12.7 % (12.1-15.1); White Blood Count 10.9 10^3/uL (4.0-10.0)
[2020-06-14 06:52] LABS: Glucose Point of Care 213 mg/dL (70-110)
--- NOTE | 2020-06-14 06:58 | PC.NURSE ---
Report to Karely LEROY.
[2020-06-14 07:48] LABS: Anion Gap 12.9 (5-19); Blood Urea Nitrogen 8 mg/dL (6-20); Calcium 8.5 mg/dL (8.5-10.5); Carbon Dioxide 24 mmol/L (22-29); Chloride 100 mmol/L (98-107); Glomerular Filtration Rate 105.5 mL/min (90-130); Glucose 221 mg/dL (65-115); Osmolality Calculated 281 mOsm/kg (285-295); Potassium 3.9 mmol/L (3.5-5.1); Sodium 133 mmol/L (136-145)
[2020-06-14] MEDS: morphine 4 mg/mL SDV 1 mL IVP ×2 (10:57→20:18)
--- NOTE | 2020-06-14 12:40 | PM.PN ---
Documented by User: OVIDIO Greene STDNT 06/14/20 12:58 Subjective Subjective: Interval history: Mr. Cruz with h/o diabetes type 1 presented 2 days ago for R foot infection. Today he states he still feels pain even with pain medication. He denies fever, chills, headache, and NVD. Medications: Reviewed: Yes Vitals/I&O/Wt Last Vital Signs Temp 97.8 F 06/14/20 11:52 Pulse 83 06/14/20 11:52 Resp 16 06/14/20 11:52 BP 135/86 06/14/20 11:52 Pulse Ox 96 06/14/20 11:52 06/13/20 06/14/20 06/14/20 22:59 06:59 14:59 Intake Total 590 / 1480 650 / 650 Output Total 300 / 775 950 / 1725 600 / 600 Balance 290 / 705 -950 / -245 50 / 50 Physical Exam Const: COMMON NORMALS: no acute distress, average body habitus, patient oriented x3, no limitations, healthy appearing, alert and well nourished GENERAL APPEARANCE: cooperative, comfortable, well kempt and well developed ORIENTATION/CONSCIOUSNESS: Yes awake, Yes oriented to person, Yes oriented to place and Yes oriented to time HENMT: COMMON NORMALS: normocephalic, atraumatic, hearing grossly normal bilaterally, external ears normal, EAC's normal, TM's normal bilaterally, Normal external nose present, Normal nasal mucous membranes and turbinates present, moist oral mucous membranes, oropharynx normal, dentition normal and gingiva normal HEAD & SCALP: normal to inspection, normocephalic and atraumatic FACE & SINUS: normal facial exam NOSE: Normal external nose present, Normal nares present and Normal nasal mucous membranes and turbinates present EXTERNAL EAR: Yes external ears normal EXTERNAL AUDITORY CANAL: EAC's normal TYMPANIC MEMBRANE: TM's normal bilaterally MOUTH: Normal oral and palatal mucosa present, lip normal, tongue normal and Normal salivary glands and ducts present THROAT: posterior oropharynx normal Eye: COMMON NORMALS: Equal, round and reactive pupils present, EOMs intact bilaterally, conjunctivae normal and no scleral icterus GENERAL EYE: appearance normal, both eyes and all related structures and normal light reflex CONJUNCTIVA: Yes conjunctivae normal PUPIL: Yes Equal, round and reactive pupils present DIRECT OPHTHALMOSCOPY: Yes normal light reflex Neck/C-Spine: COMMON NORMALS: full ROM, no lymphadenopathy, no meningeal signs and no JVD GENERAL: Yes normal visual inspection Lymph: LYMPHATIC: no lymphadenopathy noted Chest: COMMONS NORMALS: normal inspection of the chest and normal palpation of entire chest wall Resp: COMMON NORMALS: normal respiratory effort, No retractions, No use of accessory muscles, clear to auscultation bilaterally and percussion normal EFFORT & INSPECTION: Yes able to speak in complete sentences AUSCULTATION: clear to auscultation bilaterally PERCUSSION: percussion normal Cardio: COMMON NORMALS: no JVD, regular rate, regular rhythm, S1 normal heart sound present, S2 normal heart sound present, No gallops present (Cardio), No clicks present (Cardio), No murmurs present (Cardio), No rub (Cardio) and Peripheral pulses 2+ throughout RATE: regular rate RHYTHM: regular rhythm HEART SOUNDS: S1 normal heart sound present and S2 normal heart sound present PERIPHERAL PULSES: Peripheral pulses 2+ throughout GI: COMMON NORMALS: Normal to inspection, nondistended, normoactive bowel sounds present, Soft to palpation, non-tender, No hepatosplenomegaly present and no masses INSPECTION: Yes normal to inspection PALPATION: Yes Soft to palpation and Yes No hepatosplenomegaly present : COMMON NORMALS: Yes no CVA tenderness BLADDER/KIDNEY EXAM: Yes no CVA tenderness Back/Pelvis: COMMON NORMALS: no CVA tenderness, thoracic and lumbar spine normal to inspection, no thoracic nor lumbar tenderness and thoraco-lumbar ROM normal Extremity: COMMON NORMALS: normal to inspection, full ROM, capillary refill normal, no joint enlargement and no pedal edema NARRATIVE EXTREMITY EXAM: . Neuro: COMMON NORMALS: patient oriented x3, CN's II-XII intact bilaterally, moves all extremities, no focal motor deficits, no sensory deficits noted and gait normal SENSORIUM/ORIENTATION: Yes alert, Yes oriented to person, Yes oriented to place and Yes oriented to time MENINGEAL SIGNS: Yes no meningeal signs Psych: COMMON NORMALS: mental status grossly normal, Normal thought process present, cooperative, normal affect and speech normal APPEARANCE: Yes well kempt ATTITUDE: Yes calm SPEECH: Yes normal speech THOUGHT PROCESS: Normal thought process present Skin: COMMON NORMALS: no rashes or lesions noted NARRATIVE SKIN EXAM: Edema of soft tissue at the 1st MTP joint, s/p I&D small abscess over the ball of the foot in ER. Erythema areas localized on plantar surface prox to 1st MTP, dorsally proximal to 1st MTP, and dorsally over arch of the foot. Mild swelling of distal foot. Today increased petechiae/bruising between dorsal 2nd and 3rd MTP. GENERAL SKIN EXAM: no rashes or lesions noted WOUNDS: Yes wounds noted (2cm laceration and 1 in contusion on dorsum of R foot below 1st digit ) with surrounding erythema Data : 06/14/20 05:30 06/14/20 05:30 Micro: Microbiology 06/12/20 16:08 Gram Stain - Final Toe - Abscess Wound Culture - Preliminary Staphylococcus aureus 06/12/20 13:50 Blood Culture - Preliminary Blood NEGATIVE TO DATE 06/12/20 13:55 Blood Culture - Preliminary Blood NEGATIVE TO DATE A&P Assessment and plan (1) Diabetic foot infection: With original foot injury close to 3 weeks ago initially healing over, but since with progressive redness, foot pain to distal foot, with patches of redness over plantar surface of the ball of the right foot, as well as dorsally proximal to first MTP, and over the arch of the foot with this area of erythema appearing yesterday. Denies having any antibiotic treatment prior to arrival. Small abscess was noted in ER and I&D was performed with minimal amount drained, with culture sent for I&D. CT scan performed without any collections noted. Could not definitely exclude osteomyelitis, so MRI was ordered. MRI findings showed Extensive cellulitis surrounding the foot, greatest at the level of the metatarsals and extending into the deep soft tissues. There is a small phlegmon measuring 1.5 x 1.5 cm along the plantar surface between the first and second metatarsals but not an abscess at this time without osteomyelitis. Decreasing WBCs today and no systemic symptoms. Less likely to be sepsis. Due to persistent/progressive symptoms currently admitted for IV antibiotic treatment. Preliminary blood cultures are negative to date, continue to follow up. Tissue cultures show Staphlyococcus aureus. Continue treatment with IV Vancocin and IV Zosyn. Consider susceptibility tests for S. aureus isolate. He would benefit from podiatry follow-up. Status: Acute (2) Sepsis: Leukocytosis is continuing to decrease, 10.9 this morning. Patient has a pulse of 83 today. Continue IV antibiotics as above. Follow blood cultures. Monitor vital signs. Status: Acute (3) Diabetes: Reports history of difficult to manage diabetes for which was assessed even at tertiary centers, has been following with endocrinology. Due to frustration with lack of improvement status recently has not taken any insulin at all. Prior to that was on 18-20 units of Lantus once a day, as well as sliding scale short acting insulin. A1c is 12.7%. Glucose increased from 168 to 221 today, and glucose POC went from 245 to 213. Continue Lantus at 15 units, and continue to measure glucose before meals and before bedtime. Status: Acute Additional A&P Information Mild hyponatremia: 133. Monitor. Liberalize sodium intake. [place] War syndrome, PTSD: Please be cautious not to startle him if possible. Be cautious when waking him up. Coding Level of Care Code Acute Bowl Attendant for [facility] Fwd Exam Comprehensive Diagnoses Diabetic foot infection E11.628; L08.9 Sepsis A41.9 Diabetes E11.9 Documented by User: Bradford Aguiar MD 06/14/20 18:39 Data : 06/14/20 05:30 06/14/20 05:30 Attestations Medical Necessity Statement*: Continue admission for management of diabetic foot infection. Coding Level of Care Code Acute Bowl Attendant for [facility] Fwd Exam Comprehensive Diagnoses Diabetic foot infection E11.628; L08.9 Sepsis A41.9 Diabetes E11.9
[2020-06-14 13:16] LABS: Glucose Point of Care 214 mg/dL (70-110)
[2020-06-14] MEDS: insulin glargine 100 units/1 mL 18 UNIT SUBCUT (20:21)
[2020-06-14] MEDS: temazepam 15 mg Capsule PO (20:21)
[2020-06-15] VITALS (19 sets, daily range): BP systolic 96–139; BP diastolic 46–84; PULSE 68–88; RESP 18–20; TEMP 36.4–37.4; O2SAT 94–97
[2020-06-15] MEDS: heparin 5,000 unit/mL INJ 1 mL 5000 UNIT SUBCUT ×2 (00:30→18:32)
[2020-06-15] MEDS: oxyCODONE-APAP 5-325 mg Tablet 1 TAB PO ×3 (00:32→15:21)
[2020-06-15] MEDS: morphine 4 mg/mL SDV 1 mL IVP ×3 (03:29→20:10)
[2020-06-15] MEDS: piperacillin-tazobactam 3.375 GM in sodium chloride 0.9% (plus) 50 ML IV ×3 (03:30→19:55)
[2020-06-15] MEDS: vancomycin 1,250 MG/250 ML PIGGYBACK 200 MG IV (05:00)
[2020-06-15] MEDS: sertraline 50 mg Tablet PO (05:53)
[2020-06-15 05:55] LABS: Basophils # 0.1 10^3/uL (0.0-0.1); Basophils % 0.4 %; Eosinophils # 0.1 10^3/uL (0.0-0.8); Eosinophils % 1.1 %; Hematocrit 35.8 % (42.0-52.0); Hemoglobin 11.9 g/dL (11.7-16.6); Lymphocytes % 17.6 %; Mean Corpuscular HGB Conc 33.2 g/dL (30.0-36.0); Mean Corpuscular Hemoglobin 29.8 pg (28.0-34.0); Mean Corpuscular Volume 89.5 fL (80-94); Mean Platelet Volume 11.7 fL (7.4-10.4); Monocytes # 0.8 10^3/uL (0.2-0.9); Monocytes % 6.9 %; Neutrophils # 8.37 10^3/uL (1.8-7.7); Neutrophils % 73.4 %; Nucleated Red Blood Cells % 0 %; Platelet Count 240 10^3/cmm (130-400); Red Cell Distribution Width 12.5 % (12.1-15.1); White Blood Count 11.4 10^3/uL (4.0-10.0)
--- NOTE | 2020-06-15 06:09 | NUR.SHIFT ---
Patient partially slept through the night. Patient's pain is well controlled by morphine.
[2020-06-15 06:27] LABS: Blood Urea Nitrogen 6 mg/dL (6-20); Calcium 8.6 mg/dL (8.5-10.5); Carbon Dioxide 25 mmol/L (22-29); Chloride 100 mmol/L (98-107); Glomerular Filtration Rate 105.5 mL/min (90-130); Glucose 242 mg/dL (65-115); Osmolality Calculated 286 mOsm/kg (285-295); Sodium 135 mmol/L (136-145)
--- NOTE | 2020-06-15 07:33 | P.PN_ITS ---
Subjective Subjective: Interval history: Patient continues to have right foot pain, no nausea or vomiting, no drainage Vitals/I&O/Wt Last Vital Signs Temp 98 F 06/15/20 04:00 Pulse 71 06/15/20 04:00 Resp 18 06/15/20 04:00 BP 119/75 06/15/20 04:00 Pulse Ox 96 06/15/20 04:00 06/14/20 06/15/20 06/15/20 22:59 06:59 14:59 Intake Total 540 / 1730 Output Total 600 / 1200 Balance 540 / 530 -600 / 530 Physical Exam Narrative: EXAM NARRATIVE: Right foot: Abscess right foot Data : 06/15/20 05:26 06/15/20 05:26 Micro: Microbiology 06/12/20 16:08 Gram Stain - Final Toe - Abscess Wound Culture - Preliminary Staphylococcus aureus A&P Assessment and plan (1) Diabetic foot infection: 45-year-old male with right foot cellulitis likely secondary to trauma, poorly controlled diabetic. The site was aspirated in the ER by the ER physician. MRI showed cellulitis between the first and second metatarsal but no abscess or osteomyelitis at this point Continue IV vancomycin and Zosyn WBC: 11.4 Plan for incision and drainage today of right foot abscess Procedure, risks, benefits and alternatives have been discussed with the patient who wishes to proceed with surgery. 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
--- NOTE | 2020-06-15 08:34 | ANES.PREANE2 ---
Pre-Anesthetic Assessment Pre-Anesthetic Assessment: Height/Weight: Height 1.83 m Weight 68.039 kg Temp Pulse Resp BP Pulse Ox 97.8 F 76 20 H 114/76 97 06/15/20 07:37 06/15/20 07:37 06/15/20 07:37 06/15/20 07:37 06/15/20 07:37 Preop Diagnosis: right foot abscess Proposed Procedure: Operation Date: 06/15/20 08:00 Proposed Procedures p Incision And Drainage(Right) - Isaiah Urias MD Familial anesthetic complications: na Was Beta Mirian taken within 24 hours: N/A Last intake: 1999 Last Intake: 20:00 Social: Social History: Alcohol (social) and No tobacco Exam: Pre-Anes Outpt Exam: alert, oriented x 3, clear to auscultation bilaterally and regular rate & rhythm Airway: Submandibular: WNL Cervical ROM: WNL MP: 1 Dentition: Full Pulmonary: Pulmonary: None reported CV/HEM: CV/HEM: None reported : : None reported Hepatic: Hepatic: None reported Metabolic: Metabolic: DM (500's avg BS) Musc/skel: Musc/skel: None reported Neuropsych: Neuropsych: Anxiety and Depression Comments: PTSD Anesthetic Plan: ASA status: 2 Anesthesia: MAC Meds/Allergies Current Medications: Current Medications Generic Name Dose Route Start Last Admin Trade Name Leonel PRN Reason Stop Dose Admin Heparin Sodium (Be ef Lung) 5,000 unit 06/12/20 17:30 06/15/20 00:30 Heparin 5,000 Un it/Ml Inj 1 Ml SUBCUT 5,000 unit Q8H SUREKHA Administration Piperacillin Sod/T azobactam 50 mls @ 12.5 mls /hr 06/12/20 19:15 06/15/20 03:30 Sod 3.375 gm/ So dium Chloride IV 12.5 mls/hr Q8H SUREKHA Administration Protocol Vancomycin/PEG/NAD A/Lysine/Water 1,250 mg in 250 m ls @ 200 mls/hr 06/14/20 05:00 06/15/20 05:00 Vancocin IV 200 mls/hr Q12H SUREKHA Administration Insulin Aspart 0 unit 06/12/20 18:00 06/15/20 08:15 Insulin Aspart 1 00 Unit/1 Ml SUBCUT 6 unit WM&BEDTIME SUREKHA Administration Protocol Insulin Glargine 18 unit 06/14/20 21:00 06/14/20 20:21 Insulin Glargine 100 Units/1 Ml SUBCUT 18 unit BEDTIME SUREKHA Administration Morphine Sulfate 4 mg 06/14/20 10:37 06/15/20 03:29 Morphine 4 Mg/Ml Sdv 1 Ml IVP 4 mg TID PRN Administration PAIN Oxycodone/Acetamin ophen 1 tab 06/12/20 17:17 06/15/20 00:32 Oxycodone-Apap 5 -325 Mg Tablet PO 1 tab Q4H PRN Administration SEVERE PAIN Sertraline HCl 50 mg 06/13/20 06:00 06/15/20 05:53 Sertraline 50 Mg Tablet PO 50 mg QAM SUREKHA Administration Temazepam 15 mg 06/12/20 21:00 06/14/20 20:21 Temazepam 15 Mg Capsule PO 15 mg BEDTIME SUREKHA Administration PFSH Anesthesia PFSH: Medical History Diabetes DM1 vs ISAAC? Intolerant of chronic insulin or oral therapy. Gout [place] War syndrome PTSD (post-traumatic stress disorder) Surgical History H/O knee surgery H/O lymph node excision H/O shoulder surgery No history of previous surgery Family History Other Healthy adult Social History Smoking and tobacco status: former smoker Quit status (tobacco): has quit using tobacco Year quit tobacco: 2-3 ya Alcohol intake: current Alcohol intake frequency: holidays/special occasions only Lives independently: Yes Household members: spouse Marital status: service: Yes status: Retired Current occupational status: student Data Anesthesia CBC & Chem 7: 06/15/20 05:26 06/15/20 05:26 Other Labs: Laboratory Results - last 48 hr 06/13/20 06/13/20 06/13/20 12:27 16:00 20:06 WBC RBC Hgb Hct MCV MCH MCHC RDW Plt Count MPV Neut % (Auto) Lymph % (Auto) [place] % (Auto) Eos % (Auto) Baso % (Auto) Neut # (Auto) Lymph # (Auto) [place] # (Auto) Eos # (Auto) Baso # (Auto) Nucleated RBC % (auto) Nucleated RBCs # Sodium Potassium Chloride Carbon Dioxide Anion Gap BUN Creatinine GFR Calculation Glucose POC Glucose 255 H 201 H 245 H Calculated Osmolality Calcium 06/14/20 06/14/20 06/14/20 05:30 05:30 06:26 WBC 10.9 H RBC 4.22 Hgb 12.7 Hct 37.8 L MCV 89.6 MCH 30.1 MCHC 33.6 RDW 12.7 Plt Count 216 MPV 11.9 H Neut % (Auto) 76.2 Lymph % (Auto) 15.6 [place] % (Auto) 6.2 Eos % (Auto) 1.2 Baso % (Auto) 0.4 Neut # (Auto) 8.34 H Lymph # (Auto) 1.7 [place] # (Auto) 0.7 Eos # (Auto) 0.1 Baso # (Auto) 0.0 Nucleated RBC % (auto) 0 Nucleated RBCs # 0.0 Sodium 133 L Potassium 3.9 Chloride 100 Carbon Dioxide 24 Anion Gap 12.9 BUN 8 Creatinine 0.8 GFR Calculation 105.5 Glucose 221 H POC Glucose 213 H Calculated Osmolality 281 L Calcium 8.5 06/14/20 06/15/20 06/15/20 11:31 05:26 05:26 WBC 11.4 H RBC 4.00 L Hgb 11.9 Hct 35.8 L MCV 89.5 MCH 29.8 MCHC 33.2 RDW 12.5 Plt Count 240 MPV 11.7 H Neut % (Auto) 73.4 Lymph % (Auto) 17.6 [place] % (Auto) 6.9 Eos % (Auto) 1.1 Baso % (Auto) 0.4 Neut # (Auto) 8.37 H Lymph # (Auto) 2.0 [place] # (Auto) 0.8 Eos # (Auto) 0.1 Baso # (Auto) 0.1 Nucleated RBC % (auto) 0 Nucleated RBCs # 0.0 Sodium 135 L Potassium 4.0 Chloride 100 Carbon Dioxide 25 Anion Gap 14.0 BUN 6 Creatinine 0.8 GFR Calculation 105.5 Glucose 242 H POC Glucose 214 H Calculated Osmolality 286 Calcium 8.6 Micro: Microbiology 06/12/20 16:08 Gram Stain - Final Toe - Abscess Wound Culture - Preliminary Staphylococcus aureus Cardiac Studies: No Data to Display
[2020-06-15] MEDS: sodium chloride 0.9% 1,000 ML 30 ML (08:36)
--- NOTE | 2020-06-15 09:31 | PM.OP ---
Operative Report Date of procedure: June 15, 2020 Pre-op Diagnosis: right foot abscess between 1st and 2nd metatarsal Post-op diagnosis: same Post-op Diagnosis: 3 x 2cm right foot abscess between 1st and 2nd metatarsal Procedure Done: Incision and drainage of right foot abscess Pathology: aerobic and anerobic wound cultures Surgeon: Isaiah Urias Anesthesia: MAC Condition: stable Disposition: PACU Procedure: The patient was taken to the procedure room and placed under MAC. Patient was on therapeutic IV antibiotics. The right foot was prepped and draped in a sterile manner. 1% lidocaine with 1% Marcaine was infiltrated around the abscess between the first and second metatarsal bone on the plantar aspect. Using 11 blade and optical incision was made and pus was drained. Aerobic anaerobic wound cultures were obtained. The wound was irrigated with saline, loculations taken down and packed with quarter inch ribbon gauze. Sterile dressings were applied. Patient was stable throughout the procedure.
--- NOTE | 2020-06-15 14:45 | ANE.PACU2 ---
Inpatient post-anesthesia follow up: Airway intact: Yes Vital signs: Temperature 97.9 F Pulse Rate [Monito r] 102 Pulse Rate 70 Respiratory Rate 18 Blood Pressure [Ri ght Arm] 175/104 Blood Pressure 125/80 Pulse Oximetry 97 Oxygen Delivery Me thod Room Air Oxygen Flow Rate Fraction of Inspir ed Oxygen Hydration adequate: Yes Nausea and vomiting: No Pain level: 2 Mental status: Baseline
[2020-06-15 17:15] LABS: Vancomycin Trough 8.4 ug/mL (10-15)
[2020-06-15] MEDS: vancomycin 1,500 MG/300 ML PIGGYBACK 200 MG IV (18:28)
--- NOTE | 2020-06-15 19:34 | P.PN_ITS ---
Subjective Subjective: Interval history: After incision and drainage of right foot abscess he is doing well. He is having some pain, but for the most part is controlled. Denies any chest pain pressure. Denies any trouble breathing. Vitals/I&O/Wt Last Vital Signs Temp 99.1 F 06/15/20 15:41 Pulse 82 06/15/20 15:41 Resp 20 H 06/15/20 15:41 BP 139/81 06/15/20 15:41 Pulse Ox 95 06/15/20 15:41 06/15/20 06/15/20 06/15/20 06:59 14:59 22:59 Intake Total 250 / 1980 930 / 930 240 / 1170 Output Total 600 / 1200 1200 / 1200 Balance -350 / 780 930 / 930 -960 / -30 Physical Exam Const: COMMON NORMALS: no acute distress and patient oriented x3 HENMT: COMMON NORMALS: oropharynx normal Neck/C-Spine: COMMON NORMALS: no JVD Resp: COMMON NORMALS: normal respiratory effort and clear to auscultation bilaterally AUSCULTATION: clear to auscultation bilaterally Cardio: COMMON NORMALS: no JVD, regular rhythm, S1 normal heart sound present, S2 normal heart sound present and No murmurs present (Cardio) RHYTHM: regular rhythm HEART SOUNDS: S1 normal heart sound present and S2 normal heart sound present GI: COMMON NORMALS: Normal to inspection, nondistended, normoactive bowel sounds present, Soft to palpation and non-tender PALPATION: Yes Soft to pal pation Extremity: COMMON NORMALS: no joint enlargement and no pedal edema Neuro: COMMON NORMALS: patient oriented x3 and moves all extremities Skin: COMMON NORMALS: no rashes or lesions noted NARRATIVE SKIN EXAM: Fresh postoperative dressing of the right foot. No bleeding or strikethrough. No pro ximal erythema, swelling. GENERAL SKIN EXAM: no rashes or lesions noted Data : 06/15/20 05:26 06/15/20 05:26 Micro: Microbiology 06/12/20 16:08 Gram Stain - Final Toe - Abscess Wound Culture - Preliminary Staphylococcus aureus 06/15/20 08:55 Gram Stain - Final Toe - #1 A&P Assessment and plan (1) Diabetic foot infection: On reevaluation this morning and discussion of surgery given his condition decision was made to proceed with incision and drainage of the right foot collection. Packing of the wound. Leukocytosis today higher at 11.4. Cultures obtained intraoperatively. Follow-up results. Continue IV antibiotics in the hospital at this time. Dressing changes. Cultures obtained from ER growing staph aureus sensitive to vancomycin. Discussed in detail with him and his regarding risks of poor wound healing. Need for close wound follow-up, dressing changes, continued treatment of diabetes. Glucose still elevated. Will increase Lantus to 20 units. Continue sliding sca le. Possible sepsis with improvement. He would benefit from wound care follow-up. Status: Acute (2) Sepsis: Continue IV antibiotics as above. Follow blood cultures and cultures from I&D. Monitor vital signs. Blood cultures negative so far. Status: Acute (3) Diabetes: Increase Lantus to 20 units. Continue SSI. A1c 12.7. Status: Acute Additional A&P Information Mild hyponatremia: Improved. Monitor. Liberalize sodium intake. [place] War syndrome, PTSD: Please be cautious not to startle him if possible. Cautious when waking him up. Attestations Medical Necessity Statement*: Continue admission for assessment management of complicated diabetic foot infection, abscess, possible sepsis. Coding Level of Care Code Acute [employer] [facility] Diagnoses Diabetic foot infection E11.628; L08.9 Sepsis A41.9 Diabetes E11.9
[2020-06-15] MEDS: temazepam 15 mg Capsule PO (20:09)
[2020-06-15] MEDS: insulin glargine 100 units/1 mL 20 UNIT SUBCUT (21:15)
[2020-06-16] VITALS (8 sets, daily range): BP systolic 103–115; BP diastolic 66–68; PULSE 65–93; RESP 16–20; TEMP 36.8–37.2; O2SAT 94–96
[2020-06-16] MEDS: oxyCODONE-APAP 5-325 mg Tablet 1 TAB PO ×3 (00:41→10:29)
[2020-06-16] MEDS: heparin 5,000 unit/mL INJ 1 mL 5000 UNIT SUBCUT ×2 (00:41→10:30)
[2020-06-16] MEDS: piperacillin-tazobactam 3.375 GM in sodium chloride 0.9% (plus) 50 ML IV (03:38)
[2020-06-16 05:32] LABS: Basophils # 0.1 10^3/uL (0.0-0.1); Basophils % 0.5 %; Eosinophils # 0.1 10^3/uL (0.0-0.8); Eosinophils % 1.2 %; Hematocrit 37.2 % (42.0-52.0); Hemoglobin 12.4 g/dL (11.7-16.6); Lymphocytes % 17.2 %; Mean Corpuscular HGB Conc 33.3 g/dL (30.0-36.0); Mean Corpuscular Hemoglobin 29.9 pg (28.0-34.0); Mean Corpuscular Volume 89.6 fL (80-94); Mean Platelet Volume 11.9 fL (7.4-10.4); Monocytes # 0.9 10^3/uL (0.2-0.9); Monocytes % 8.2 %; Neutrophils % 72.3 %; Nucleated Red Blood Cells % 0 %; Platelet Count 239 10^3/cmm (130-400); Red Blood Count 4.15 10^6/uL (4.1-5.3); Red Cell Distribution Width 12.4 % (12.1-15.1); White Blood Count 11.5 10^3/uL (4.0-10.0)
[2020-06-16] MEDS: vancomycin 1,500 MG/300 ML PIGGYBACK 200 MG IV (05:51)
[2020-06-16] MEDS: sertraline 50 mg Tablet PO (05:52)
[2020-06-16 05:55] LABS: Alanine Aminotransferase 16 U/L (0-41); Albumin Level 3.3 g/dL (3.5-5.2); Alkaline Phosphatase 97 IU/L (40-130); Aspartate Amino Transferase 20 U/L (0-40); Blood Urea Nitrogen 6 mg/dL (6-20); Calcium 8.6 mg/dL (8.5-10.5); Carbon Dioxide 24 mmol/L (22-29); Chloride 99 mmol/L (98-107); Globulin 2.8 g/dL (1.3-4.6); Glomerular Filtration Rate 105.5 mL/min (90-130); Glucose 242 mg/dL (65-115); Osmolality Calculated 282 mOsm/kg (285-295); Sodium 133 mmol/L (136-145); Total Bilirubin 0.4 mg/dL (0.15-1.2); Total Protein 6.1 g/dL (6.6-8.7)
--- NOTE | 2020-06-16 06:21 | NUR.SHIFT ---
Patient mainly slept through the night. Patient has stated that his pain has changed from throbbing pain to a constant pain. Patients pain is well controlled by oxycodone.
--- NOTE | 2020-06-16 10:27 | P.DS_ITS ---
Discharge Providers Date of Admission: 06/12/20 13:58 Date of Discharge: June 16, 2020 Attending Provider at Admission: Bradford Aguiar Attending Provider at Discharge: Bradford Aguiar Primary Care Provider: Malvin Diggs Diagnoses at Discharge Discharge Diagnosis (1) Diabetic foot infection: Status: Acute Permanent problem details: Cellulitis and abscess of R foot, s/p I&D. (2) Sepsis: Status: Acute (3) Diabetes: Status: Acute Permanent problem details: DM1 vs ISAAC? Intolerant of chronic insulin or oral therapy. Reason for Visit Reason for Visit: Rt foot pain Hospital Course Hospital Course Pleasant 45-year-old gentleman with history of diabetes which has been difficult to control, presented with painful swelling of the forefoot, especially of the underside, with patchy areas of erythema on the plantar, but also dorsal surface of the distal foot, as well as dorsal surface of the arch of the foot. Small abscess close to the surface on the plantar aspect was drained in ER. CT of the foot in ER was nondiagnostic for additional abscess or osteomyelitis. Showed extensive cellulitis and swelling. He was treated with IV antibiotics while in the hospital with Zosyn, vancomycin. He had recently discontinued taking insulin as he reported it was not working to control his diabetes. Today he states that it appears he may have been [facility] and possibly that is why he was requiring high doses of insulin with little effect at home. Here he has been resumed on Lantus, initially 18 units, currently increased up to 22, and sliding scale NovoLog. He will continue this regimen at home. His diabetes definitely can benefit from additional optimization. A1c was 12.7. He underwent MRI of the foot while in the hospital, with finding of cellulitis, as well as a 1.5 x 1.5 cm fluid collection between the first and second metatarsal bones on the plantar side. This was initially monitored as it did not appear to be an abscess, and initially his white blood cell count showed improvement. He was afebrile. There was initially some extension of erythema, although with less intensity and color. Since initially the collection was not noted to be an abscess, possibility of improvement of the fluid collection with medical treatment, as well as elevated risks of lack of healing and, risks of subsequent amputation were discussed. He had persistent pain, however, swelling, and subsequently leukocytosis increased. Without improvement in symptoms he to decided to proceed with incision and drainage of the collection. Initial small collection drained in ER grew Staph aureus resistant to ampicillin, clindamycin and erythromycin. Cultures were again obtained intraoperatively, so far without organisms on Gram stain, although he did receive IV antibiotics prior to drainage. Please follow-up cultures from intrao perative drainage. Today he is feeling much better. Erythema is receding, with intense erythema resolved entirely, with some residual bruise-like erythema remaining at the dorsum of the foot and around the I&D site. Meticulous wound care, and close control of his diabetes were discussed by surgery and myself again with concern for poor wound healing, with recommendation for close follow- up with wound care clinic and his primary care provider. Please consider referral to endocrinology for additional help with management of his difficult to control diabetes. He is asked to back the wound with quarter inch gauze until his wound care appointment. He will complete antibiotic course with doxycycline, ciprofloxacin, unless adjustment as needed, please follow-up intraoperative cultures. Surgical shoe was requested for him. Physical Exam Const: COMMON NORMALS: no acute distress and patient oriented x3 HENMT: COMMON NORMALS: oropharynx normal Neck/C-Spine: COMMON NORMALS: no JVD Resp: COMMON NORMALS: normal respiratory effort and clear to auscultation bilaterally AUSCULTATION: clear to auscultation bilaterally Cardio: COMMON NORMALS: no JVD, regular rhythm, S1 normal heart sound present, S2 normal heart sound present and No murmurs present (Cardio) RHYTHM: regular rhythm HEART SOUNDS: S1 normal heart sound present and S2 normal heart sound present GI: COMMON NORMALS: Normal to inspection, nondistended, normoactive bowel sounds present, Soft to palpation and non-tender PALPATION: Yes Soft to palpation Extremity: COMMON NORMALS: no joint enlargement and no pedal edema Neuro: COMMON NORMALS: patient oriented x3 and moves all extremities Skin: COMMON NORMALS: no rashes or lesions noted NARRATIVE SKIN EXAM: Fresh postoperative dressing of the right foot. No bleeding or strikethrough. No proximal erythema, swelling. GENERAL SKIN EXAM: no rashes or lesions noted Discharge Data Data Completed and Pending: Completed Studies During Hospitalization Category Date Time Status CT foot RT [place] [address] Stat Cat Scan 06/12/20 15:13 Completed [place] foot RT wo/[place] [address] Routine MRI 06/13/20 16:55 Completed Pending at discharge Category Date Time Status Abscess Culture R outine Lab 06/15/20 08:55 Ordered Blood Culture Sta t Lab 06/12/20 13:55 Results Complete Blood Co unt w/Auto AM LABS Lab 06/17/20 04:00 Ordered Complete Blood Co unt w/Auto AM LABS Lab 06/18/20 04:00 Ordered Comprehensive Met abolic Panel AM LA BS Lab 06/17/20 04:00 Ordered Comprehensive Met abolic Panel AM LA BS Lab 06/18/20 04:00 Ordered Vancomycin Trough Timed Lab 06/17/20 17:00 Ordered Wound Culture and Gram Stain Routin e Lab 06/15/20 08:55 Results Wound Culture and Gram Stain Stat Lab 06/12/20 16:08 Results Labs from last 24 hours 06/16/20 06/16/20 06/15/20 04:47 04:47 16:09 WBC 11.5 H RBC 4.15 Hgb 12.4 Hct 37.2 L MCV 89.6 MCH 29.9 MCHC 33.3 RDW 12.4 Plt Count 239 MPV 11.9 H Neut % (Auto) 72.3 Lymph % (Auto) 17.2 [place] % (Auto) 8.2 Eos % (Auto) 1.2 Baso % (Auto) 0.5 Neut # (Auto) 8.30 H Lymph # (Auto) 2.0 [place] # (Auto) 0.9 Eos # (Auto) 0.1 Baso # (Auto) 0.1 Nucleated RBC % (a uto) 0 Nucleated RBCs # 0.0 Sodium 133 L Potassium 4.0 Chloride 99 Carbon Dioxide 24 Anion Gap 14.0 BUN 6 Creatinine 0.8 GFR Calculation 105.5 Glucose 242 H Calculated Osmolal ity 282 L Calcium 8.6 Total Bilirubin 0.4 AST 20 ALT 16 Alkaline Phosphata se 97 Total Protein 6.1 L Albumin 3.3 L Globulin 2.8 Vancomycin Trough 8.4 L Vitals: Last Vital Signs Temp 98.3 F 06/16/20 07:22 Pulse 65 06/16/20 07:22 Resp 18 06/16/20 07:22 BP 103/66 06/16/20 07:22 Pulse Ox 96 06/16/20 07:22 Discharge Plan Discharge Patient Disposition: Home Condition: Stable Prescriptions: New oxycodone-acetaminophen 5-325 mg Tablet 1 tab PO Q6H PRN (Reason: Severe Pain) Qty: 8 RF: 0 doxycycline hyclate 100 mg capsule 100 mg PO BID 10 Days Qty: 20 RF: 0 ciprofloxacin HCl [Cipro] 500 mg tablet 500 mg PO BID Qty: 14 RF: 0 Continued sertraline 100 mg tablet 50 mg PO QAM RF: 0 temazepam 15 mg capsule 15 mg PO BEDTIME RF: 0 Aleve 220 mg Tablet 440 mg PO BEDTIME RF: 0 indomethacin 50 mg Capsule 25 - 50 mg PO PRN RF: 0 Novolog Flexpen U-100 Insulin 100 unit/mL (3 mL) insulin pen See Rx Instructions .ROUTE .COMPLEX RF: 0 Changed Lantus Solostar U-100 Insulin 100 unit/mL (3 mL) insulin pen 22 unit SUBCUT DAILY Qty: 0 RF: 0 Discharge Orders: Discharge Order (Routine); Ordered 06/16/20 Ordered By: Bradford Aguiar Referrals: Malvin Diggs [Primary Care Provider] - 06/23/20 10:00 am (Abscess, cellulitis RLE, uncontrolled DM. Please refer to endocrinology. ) WOUND CARE CLINIC, [Staff Physician] - 06/19/20 (RLE abscess, cellulitis, uncontrolled DM) Discharge Diet: Diabetic Discharge Activity: Limit activity as instructed and As per PT/OT instructions Patient Instructions: Ciprofloxacin (By mouth), Doxycycline (By mouth), Naproxen (By mouth), Oxycodone/Acetaminophen (By mouth), Indomethacin (By mouth), Insulin Glargine (Injection), Insulin Lispro (Injection), Diabetic Foot Care (GEN), Diabetes Mellitus Type 2 in Adults (GEN), Giving an Insulin Injection (GEN), Diabetic Foot Ulcers (GEN) Activity Restrictions/Additional Instructions: Please back wound with quarter inch gauze daily. Please keep lower extremity clean. Never walk barefoot. Wear surgical shoe. Please make sure to follow-up with wound care clinic. Close follow-up will be very important to ensure the wound is healing properly and that no additional debridements or switch to different dressings need to be made. Please make sure to keep strict control of your diabetes and glucose as this will be very important to making sure that the wound heals. Please have your primary care doctor refer to endocrinology clinic. With regards to indications, please do not take indomethacin and naproxen together as they are similar medications (NSAIDs) and each can cause adverse effects including kidney injury, stomach inflammation, ulcers, and other adverse effects, combined these adverse effects may be more severe. Please do not take for prolonged periods of time. Discharge Attestations Time Spent in Discharge Care*: greater than 30 min Quality Metrics Clinical Quality Measures During this hospital stay, did patient experience: None Coding Level of Care Code Acute [employer] for [facility] Diagnoses Diabetic foot infection E11.628; L08.9 Sepsis A41.9 Diabetes E11.9
--- NOTE | 2020-06-16 12:11 | PC.NURSE ---
pt ivs taken out and intact. discharge instructions explained and all questions answered. demonstrated and explained how to do wound care changes.
--- NOTE | 2020-06-16 14:02 | PC.PT ---
PT NOTE; fit pt with post-op shoe Right foot to his satisfaction,and he had no questions,also discussed heel walk and use of walker ,pt states has one at home.
--- NOTE | 2020-06-16 16:36 | PM.PN ---
Subjective Subjective: Interval history: Patient keen to go home today, denies significant pain Vitals/I&O/Wt Last Vital Signs Temp 98.4 F 06/16/20 12:14 Pulse 74 06/16/20 12:14 Resp 18 06/16/20 12:14 BP 115/68 06/16/20 12:14 Pulse Ox 96 06/16/20 12:14 06/16/20 06/16/20 06/16/20 06:59 14:59 22:59 Intake Total 510 / 2030 710 / 710 Output Total 900 / 3000 Balance -390 / -970 710 / 710 Physical Exam Narrative: EXAM NARRATIVE: Right foot: Erythema improved, wound has minimal necrotic tissue or drainage Data : 06/16/20 04:47 06/16/20 04:47 Micro: Microbiology 06/12/20 16:08 Gram Stain - Final Toe - Abscess Wound Culture - Final Staphylococcus aureus 06/15/20 08:55 Gram Stain - Final Toe - #1 Wound Culture - Preliminary Staphylococcus aureus A&P Assessment and plan (1) History of incision and drainage: Doing well today DC home on oral antibiotics Follow-up in wound care next week Daily packing of wound with quarter inch ribbon gauze Status: Acute Attestations Medical Necessity Statement*: Status post I&D doing well DC home today Coding Level of Care Code 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
== END 2020-06-16 13:00 | disposition home or self-care (01) | DRG 872 ==
LOC: ER 14:39 → MEDSURG 15:14
PROVIDERS: Surgery; Admitting Provider Internal Medicine; Emergency Provider Family Medicine; PCP Family Medicine; Visit Provider Internal Medicine
PROC: 0H9MXZZ Drainage of Right Foot Skin, External Approach (ICD-10-PCS; principal; 2020-06-15 08:00)
DX: A41.9 Sepsis, unspecified organism (principal); L02.611 Cutaneous abscess of right foot; E87.1 Hypo-osmolality and hyponatremia; L03.115 Cellulitis of right lower limb; E11.628 Type 2 diabetes mellitus with other skin complications; F43.12 Post-traumatic stress disorder, chronic; Y36.90XS War operations, unspecified, sequela; Z87.891 Personal history of nicotine dependence; Z91.128 Patient's intentional underdosing of medication regimen for other reason; B95.61 Methicillin susceptible Staphylococcus aureus infection as the cause of diseases classified elsewhere; Z79.4 Long term (current) use of insulin
CPT/HCPCS: 12345; 36415; 36416; 73702; 73720; 80048; 80053; 80202; 82009; 82962; 83036; 83605; 85025; 87040; 87070; 87075; 87077; 87186; 87205; 96372; 99283; A9579; J1644; J1815 ×2; J1885; J2270; J2543; J3010; J3370; J3490; J7030; J7050; L3260; Q9967

== ENCOUNTER 2020-06-20 14:00 | Outpatient (CLI) | payer OTHER, SELFPAY | END 2020-06-20 14:01 | disposition home or self-care (01) | PROVIDERS: PCP Family Medicine; Visit Provider Thoracic Surgery (Cardiothoracic Vascular Surgery) | DX: E11.621 Type 2 diabetes mellitus with foot ulcer (principal); L97.412 Non-pressure chronic ulcer of right heel and midfoot with fat layer exposed | CPT/HCPCS: 11042; G0463; L2999; L3260 ==

== ENCOUNTER 2020-06-27 10:23 | Outpatient (CLI) | payer OTHER, SELFPAY | END 2020-06-27 10:24 | disposition home or self-care (01) | LOC: WOUND 10:24 | PROVIDERS: PCP Family Medicine; Visit Provider Thoracic Surgery (Cardiothoracic Vascular Surgery) | DX: E11.621 Type 2 diabetes mellitus with foot ulcer (principal); L97.412 Non-pressure chronic ulcer of right heel and midfoot with fat layer exposed | CPT/HCPCS: 11042 ==

== ENCOUNTER 2020-07-04 10:06 | Outpatient (CLI) | payer OTHER, SELFPAY | END 2020-07-04 10:07 | disposition home or self-care (01) | LOC: WOUND 10:07 | PROVIDERS: PCP Family Medicine; Visit Provider Thoracic Surgery (Cardiothoracic Vascular Surgery) | DX: E11.621 Type 2 diabetes mellitus with foot ulcer (principal); L97.412 Non-pressure chronic ulcer of right heel and midfoot with fat layer exposed | CPT/HCPCS: 11042 ==

== ENCOUNTER 2020-07-11 09:48 | Outpatient (CLI) | payer OTHER, SELFPAY | END 2020-07-11 09:49 | disposition home or self-care (01) | LOC: WOUND 09:49 | PROVIDERS: PCP Family Medicine; Visit Provider Thoracic Surgery (Cardiothoracic Vascular Surgery) | DX: E11.621 Type 2 diabetes mellitus with foot ulcer (principal); L97.412 Non-pressure chronic ulcer of right heel and midfoot with fat layer exposed | CPT/HCPCS: 11042 ==

== ENCOUNTER 2020-07-11 10:23 | Outpatient (CLI) | payer OTHER, SELFPAY ==
--- NOTE | 2020-07-11 10:27 | XR_ITS ---
WS: [id number] RIGHT FOOT: 3 VIEW(S) TECHNIQUE: AP, oblique and lateral. HISTORY: PAIN, REDNESS, NONHEALING ULCER COMPARISON: None available. No acute fracture or dislocation. Normal tarsal/metatarsal alignment. No soft tissue abnormality or bone destruction. No osteomyelitis identified. Soft tissue ulceration is not identified radiographically. XR/XR foot RT min 3V* [id number] IMPRESSION: No osteomyelitis identified radiographically.
== END 2020-07-11 10:24 | disposition home or self-care (01) ==
LOC: RAD 10:25
PROVIDERS: PCP Family Medicine; Visit Provider Thoracic Surgery (Cardiothoracic Vascular Surgery)
DX: M79.671 Pain in right foot (principal); L53.9 Erythematous condition, unspecified; L97.519 Non-pressure chronic ulcer of other part of right foot with unspecified severity
CPT/HCPCS: 73630

== ENCOUNTER 2020-07-18 10:10 | Outpatient (CLI) | payer OTHER, SELFPAY | END 2020-07-18 10:11 | disposition home or self-care (01) | LOC: WOUND 10:11 | PROVIDERS: PCP Family Medicine; Visit Provider Thoracic Surgery (Cardiothoracic Vascular Surgery) | DX: E11.621 Type 2 diabetes mellitus with foot ulcer (principal); L97.412 Non-pressure chronic ulcer of right heel and midfoot with fat layer exposed | CPT/HCPCS: 11042; 87070 ==

== ENCOUNTER 2020-07-25 08:33 | Outpatient (CLI) | payer OTHER, SELFPAY | END 2020-07-25 08:34 | disposition home or self-care (01) | LOC: WOUND 08:33 | PROVIDERS: PCP Family Medicine; Visit Provider Thoracic Surgery (Cardiothoracic Vascular Surgery) | DX: E11.621 Type 2 diabetes mellitus with foot ulcer (principal); L97.512 Non-pressure chronic ulcer of other part of right foot with fat layer exposed | CPT/HCPCS: 11042; L3260 ==

== ENCOUNTER 2020-08-01 08:48 | Outpatient (CLI) | payer OTHER, SELFPAY | END 2020-08-01 08:49 | disposition home or self-care (01) | LOC: WOUND 08:48 | PROVIDERS: PCP Family Medicine; Visit Provider Thoracic Surgery (Cardiothoracic Vascular Surgery) | DX: Z09 Encounter for follow-up examination after completed treatment for conditions other than malignant neoplasm (principal) | CPT/HCPCS: G0463 ==

== ENCOUNTER → 2020-08-08 13:34 | Outpatient (BNVA) | payer OTHER, SELFPAY | PROVIDERS: PCP Family Medicine; Visit Provider Internal Medicine | DX: E11.40 Type 2 diabetes mellitus with diabetic neuropathy, unspecified (principal); K86.89 Other specified diseases of pancreas; R19.7 Diarrhea, unspecified | CPT/HCPCS: 95251; 99205 ==

== ENCOUNTER 2020-08-31 09:46 | Emergency (ER) | payer OTHER, SELFPAY | END 2020-08-31 10:06 | LOC: ER 09:57 | DX: E10.40 Type 1 diabetes mellitus with diabetic neuropathy, unspecified (principal); E10.649 Type 1 diabetes mellitus with hypoglycemia without coma; K86.89 Other specified diseases of pancreas; R19.7 Diarrhea, unspecified | CPT/HCPCS: 99215 ==

== ENCOUNTER → 2021-04-03 14:47 | Outpatient (BNVA) | payer OTHER, SELFPAY | PROVIDERS: Visit Provider Internal Medicine | DX: E11.649 Type 2 diabetes mellitus with hypoglycemia without coma (principal); E11.40 Type 2 diabetes mellitus with diabetic neuropathy, unspecified; K86.89 Other specified diseases of pancreas; Z79.4 Long term (current) use of insulin; Z87.891 Personal history of nicotine dependence | CPT/HCPCS: 99214 ==

== ENCOUNTER → 2021-06-08 10:42 | Outpatient (BNVA) | payer OTHER, SELFPAY | PROVIDERS: Visit Provider Internal Medicine | DX: E10.40 Type 1 diabetes mellitus with diabetic neuropathy, unspecified (principal); K86.89 Other specified diseases of pancreas; Z79.4 Long term (current) use of insulin | CPT/HCPCS: 99214 ==

== ENCOUNTER 2021-08-12 11:30 | Emergency (ER) | payer OTHER, SELFPAY ==
[2021-08-12 11:44] VITALS: BP 144/95; PULSE 97; RESP 18; TEMP 36.6; O2SAT 98; BMI 25.7
[2021-08-12 11:48] VITALS: BP 139/104; PULSE 99; RESP 20; O2SAT 100
--- NOTE | 2021-08-12 11:51 | W.ED.EXTPRO ---
HPI - Extremity Problem General: Chief complaint: Extremity Injury, Lower Stated complaint: L knee Swollen an painful Time Seen by Provider: 08/12/21 11:42 Source: patient and family () Mode of arrival: wheelchair Limitations: no limitations History of Present Illness: Patient is a 46-year-old male with a history of type 1 diabetes, gout, and PTSD here for concerns of gout to his left knee. Patient states his gouty flares normally affect his left knee and he has a prescription for indomethacin that he is directed to start at the first sign of symptoms. He states normally this medication seems to control flares from worsening however the last couple of days pain has continued to progress. He states his pain today feels identical to previous gout flares only worsened in severity. Has not had any injury or trauma to the knee. Nothing to precipitate infection. He has not noticed any redness to the joint. Patient has not been running fevers or chills. He states sugars have been elevated as well. 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 Calderon for treatment of his diabetes. MD Complaint: joint swelling and joint pain Onset (ago): day(s) Pain Consistency: constant Location: left and knee Quality: sharp Radiation: none Relieving factors: nothing Exacerbating factors: range of motion, weight bearing and walking Associated symptoms: Deny chest pain, fever(s) or rash Context: history of gout Review of Systems Const: Denies: fever(s), chills, body aches, fatigue or malaise Card: Denies: chest pain Resp: Denies: dyspnea GI: Denies: abdominal pain, nausea or vomiting : Denies: flank pain, dysuria or hematuria Musc: Reports: joint pain (L knee), joint swelling (L knee) and limited range of motion; Denies: neck pain, back pain, extremity pain, extremity swelling or joint redness Skin/Breast: Denies: rash Neuro: Reports: difficulty walking (secondary to pain); Denies: headache(s), numbness in extremities, weakness in extremities or sensory changes PFSH ED PFSH: Medical History Gout [place] War syndrome PTSD (post-traumatic stress disorder) Surgical History H/O knee surgery H/O lymph node excision H/O shoulder surgery History of incision and drainage (~06/15/20) Right foot No history of previous surgery Family History Other Healthy adult Social History Quit status (tobacco): has quit using tobacco Year quit tobacco: 2-3 ya Alcohol intake: current Alcohol intake frequency: holidays/special occasions only Lives independently: Yes Household members: spouse Marital status: service: Yes status: Retired Current occupational status: student Physical Exam Const: COMMON NORMALS: average body habitus, patient oriented x3, no limitations, healthy appearing, alert and well nourished GENERAL APPEARANCE: cooperative and in distress (appears uncomfortable secondary to L knee pain) HENMT: COMMON NORMALS: normocephalic and atraumatic HEAD & SCALP: normocephalic and atraumatic Resp: COMMON NORMALS: normal respiratory effort and clear to auscultation bilaterally AUSCULTATION: clear to auscultation bilaterally Cardio: COMMON NORMALS: regular rate and regular rhythm RATE: regular rate RHYTHM: regular rhythm Extremity: COMMON NORMALS: capillary refill normal, no clubbing, cyanosis or edema, no calf tenderness and no pedal edema GENERAL: Yes normal exam except as noted LEFT LOWER EXTREMITY: Yes knee joint Left knee: Yes palpation (swelling noted medially), Yes ROM (limited secondary to pain), Yes neurovascular exam (normal) and Yes other (no redness/signficiant warmth to joint) Neuro: COMMON NORMALS: patient oriented x3, moves all extremities, no focal motor deficits and no sensory deficits noted SENSORIUM/ORIENTATION: Yes alert Skin: COMMON NORMALS: no rashes or lesions noted GENERAL SKIN EXAM: no rashes or lesions noted TRAUMA: no lacerations or abrasions Course Vital Signs: Vital signs: Vital Signs Temperature 97.8 F 08/12/21 11:44 Pulse Rate 87 08/12/21 13:48 Respiratory Rate 16 08/12/21 13:48 Blood Pressure 156/96 08/12/21 13:48 Pulse Oximetry 100 08/12/21 13:48 MDM - Extremity (Nontraumatic) Medical Decision Making Patient is a 46-year-old male here for left knee pain and swelling that is consistent with his previous gout flares. He has no evidence for inflammatory/infectious arthritis, septic joint, or other emergent process at this time. He has a normal white count. CRP is normal. He does have an elevated uric acid at 8.2. He reportedly has an allergy to allopurinol. His vital signs are stable. Patient has been taking indomethacin without relief of his symptoms. We will switch this to diclofenac and place him on a steroid taper. He will be provided a small amount of opiate pain medications to help with his discomfort. [facility] Return to ED precautions given. Lab Data : 08/12/21 12:16 08/12/21 12:16 Laboratory Results WBC 8.3 10^3/uL (4.0-10.0) 08/12/21 12:16 RBC 5.01 10^6/uL (4.1-5.3) 08/12/21 12:16 Hgb 14.8 g/dL (11.7-16.6) 08/12/21 12:16 Hct 43.5 % (42.0-52.0) 08/12/21 12:16 MCV 86.8 fl (80-94) 08/12/21 12:16 MCH 29.5 pg (28.0-34.0) 08/12/21 12:16 MCHC 34.0 g/dL (30.0-36.0) 08/12/21 12:16 RDW 13.3 % (12.1-15.1) 08/12/21 12:16 Plt Count 215 10^3/cmm (130-400) 08/12/21 12:16 MPV 11.9 fL (7.4-10.4) H 08/12/21 12:16 Neut % (Auto) 72.0 % 08/12/21 12:16 Lymph % (Auto) 18.6 % 08/12/21 12:16 [place] % (Auto) 6.0 % 08/12/21 12:16 Eos % (Auto) 2.2 % 08/12/21 12:16 Baso % (Auto) 0.8 % 08/12/21 12:16 Neut # (Auto) 6.00 10^3/uL (1.8-7.7) 08/12/21 12:16 Lymph # (Auto) 1.6 10^3/uL (0.8-4.8) 08/12/21 12:16 [place] # (Auto) 0.5 10^3/uL (0.2-0.9) 08/12/21 12:16 Eos # (Auto) 0.2 10^3/uL (0.0-0.8) 08/12/21 12:16 Baso # (Auto) 0.1 10^3/uL (0.0-0.1) 08/12/21 12:16 Nucleated RBC % (auto) 0 % 08/12/21 12:16 Nucleated RBCs # 0.0 /100WBC 08/12/21 12:16 Sodium 138 mmol/L (136-145) 08/12/21 12:16 Potassium 4.4 mmol/L (3.5-5.1) 08/12/21 12:16 Chloride 101 mmol/L (98-107) 08/12/21 12:16 Carbon Dioxide 27 mmol/L (22-29) 08/12/21 12:16 Anion Gap 14.4 (5-19) 08/12/21 12:16 BUN 13 mg/dL (6-20) 08/12/21 12:16 Creatinine 1.1 mg/dL (0.7-1.2) 08/12/21 12:16 GFR Calculation 72.7 mL/min (90-130) L 08/12/21 12:16 Glucose 186 mg/dL (65-115) H 08/12/21 12:16 POC Glucose 173 mg/dL (70-110) H 08/12/21 12:19 Calculated Osmolality 291 mOsm/kg (285-295) 08/12/21 12:16 Uric Acid 8.2 mg/dL (3.4-7.0) H 08/12/21 12:16 Calcium 9.1 mg/dL (8.5-10.5) 08/12/21 12:16 Total Bilirubin 0.5 mg/dL (0.15-1.2) 08/12/21 12:16 AST 14 U/L (0-40) 08/12/21 12:16 ALT 23 U/L (0-41) 08/12/21 12:16 Alkaline Phosphatase 73 IU/L (40-130) 08/12/21 12:16 C-Reactive Protein 4.4 mg/L (0.0-4.9) 08/12/21 12:16 Total Protein 6.8 g/dL (6.6-8.7) 08/12/21 12:16 Albumin 4.5 g/dL (3.5-5.2) 08/12/21 12:16 Globulin 2.3 g/dL (1.3-4.6) 08/12/21 12:16 Discharge Plan Discharge Patient Disposition: Home Clinical Impression: Acute gout of left knee Condition: Stable Prescriptions: New diclofenac sodium 50 mg tablet,delayed release (DR/EC) 50 mg PO Q8H PRN (Reason: pain) Qty: 20 0RF prednisone 10 mg tablet 10 mg PO DAILY 10 Days Qty: 24 0RF Rx Instructions: 4 tabs on days 1-3, 3 tabs on days 4-5, 2 tabs on days 6-7, 1 tab on days 8-9 hydrocodone-acetaminophen 7.5-325 mg tablet 1 - 2 tab PO .q4-6 PRN (Reason: pain) Qty: 20 0RF No Action Glucagon (HCl) Emergency Kit 1 mg recon soln 1 mg SUBCUT Q20M PRN (Reason: hypoglycemia) Qty: 2 3RF Rx Instructions: until target blood sugar attained Lantus Solostar U-100 Insulin 100 unit/mL (3 mL) insulin pen 32 unit SUBCUT DAILY 0RF pregabalin [Lyrica] 25 mg capsule 25 mg PO DAILY 0RF (DME) t:slim X2 Insulin Pump Misc See Rx Instructions .Route Qty: 1 0RF Rx Instructions: As directed (DME) subcutaneous insulin pump Misc See Rx Instructions .Route Qty: 1 0RF Rx Instructions: T slim insulin pump and supplies (DME) pen needle, diabetic [BD Estephanie 2nd Gen Pen Needle] 32 gauge x 5/32 needle See Rx Instructions .ROUTE .MEDSUPPLY Qty: 360 3RF Rx Instructions: test blood sugar 4 times a day (DME) Dexcom G6 [employer] Assistant Misc See Rx Instructions .ROUTE .MEDSUPPLY Qty: 1 0RF Rx Instructions: used to take blood sugars (DME) Dexcom G6 Sensor Device See Rx Instructions .ROUTE .MEDSUPPLY Qty: 3 3RF Rx Instructions: used to check blood sugar 4 times a day (DME) Dexcom G6 Transmitter Device See Rx Instructions .ROUTE .MEDSUPPLY Qty: 3 3RF Rx Instructions: As directed sertraline 100 mg tablet 50 mg PO QAM 0RF Aleve 220 mg Tablet 440 mg PO BEDTIME 0RF indomethacin 50 mg Capsule 25 - 50 mg PO PRN 0RF oxycodone-acetaminophen 5-325 mg Tablet 1 tab PO Q6H PRN (Reason: Severe Pain) Qty: 8 0RF Novolog Flexpen U-100 Insulin 100 unit/mL (3 mL) insulin pen See Rx Instructions .ROUTE .COMPLEX 0RF Rx Instructions: sliding scale tid before meals 12 unit 200-250 +2 units 250-300 +4 units 301-350 +6 units 351-400 +8 units 401-450 +10 units Discharge Orders: Discharge ED (Routine); Ordered 08/12/21 Ordered By: Jillian Pena Patient Instructions: Gout (ED) Activity Restrictions/Additional Instructions: DO NOT TAKE INDOMETHACIN WITH THE DICLOFENAC. Coding Level of Care Code ED Sales Stock Associate for Chg Fwd Exam Detailed
[2021-08-12 12:20] VITALS: RESP 18
[2021-08-12] MEDS: morphine 4 mg/mL SDV 1 mL IVP (12:20)
[2021-08-12] MEDS: ondansetron 2 mg/ML SDV 2 mL 4 MG IVP (12:20)
[2021-08-12] MEDS: insulin regular-human 100 units/1 mL 10 UNIT IVP (12:21)
[2021-08-12 12:22] LABS: Glucose Point of Care 173 mg/dL (70-110)
[2021-08-12] MEDS: ketorolac 30 mg/mL INJ IVP (12:26)
[2021-08-12 12:32] LABS: Basophils # 0.1 10^3/uL (0.0-0.1); Basophils % 0.8 %; Eosinophils # 0.2 10^3/uL (0.0-0.8); Eosinophils % 2.2 %; Hematocrit 43.5 % (42.0-52.0); Hemoglobin 14.8 g/dL (11.7-16.6); Lymphocytes # 1.6 10^3/uL (0.8-4.8); Lymphocytes % 18.6 %; Mean Corpuscular Hemoglobin 29.5 pg (28.0-34.0); Mean Corpuscular Volume 86.8 fl (80-94); Mean Platelet Volume 11.9 fL (7.4-10.4); Monocytes # 0.5 10^3/uL (0.2-0.9); Nucleated Red Blood Cells % 0 %; Platelet Count 215 10^3/cmm (130-400); Red Blood Count 5.01 10^6/uL (4.1-5.3); Red Cell Distribution Width 13.3 % (12.1-15.1); White Blood Count 8.3 10^3/uL (4.0-10.0)
[2021-08-12] MEDS: colchicine 0.6 mg Tablet 1.2 MG PO (12:36)
[2021-08-12 12:52] LABS: Alanine Aminotransferase 23 U/L (0-41); Albumin Level 4.5 g/dL (3.5-5.2); Alkaline Phosphatase 73 IU/L (40-130); Anion Gap 14.4 (5-19); Aspartate Amino Transferase 14 U/L (0-40); Blood Urea Nitrogen 13 mg/dL (6-20); C Reactive Protein 4.4 mg/L (0.0-4.9); Calcium 9.1 mg/dL (8.5-10.5); Carbon Dioxide 27 mmol/L (22-29); Chloride 101 mmol/L (98-107); Globulin 2.3 g/dL (1.3-4.6); Glomerular Filtration Rate 72.7 mL/min (90-130); Glucose 186 mg/dL (65-115); Osmolality Calculated 291 mOsm/kg (285-295); Potassium 4.4 mmol/L (3.5-5.1); Sodium 138 mmol/L (136-145); Total Bilirubin 0.5 mg/dL (0.15-1.2); Total Protein 6.8 g/dL (6.6-8.7); Uric Acid 8.2 mg/dL (3.4-7.0)
[2021-08-12 13:48] VITALS: BP 156/96; PULSE 87; RESP 16; O2SAT 100
== END 2021-08-12 13:54 | disposition home or self-care (01) ==
PROVIDERS: Emergency Provider Physician Assistant
DX: M10.9 Gout, unspecified (principal); Z79.4 Long term (current) use of insulin; Z87.891 Personal history of nicotine dependence
CPT/HCPCS: 36416; 80053; 82962; 84550; 85025; 86140; 96374; 96375; 99284; J1815; J1885; J2270; J2405; J2930

== ENCOUNTER 2022-02-28 16:49 | Observation (INO) | payer OTHER, SELFPAY ==
[2022-02-28 17:23] VITALS: PULSE 112; RESP 16; TEMP 36.7; O2SAT 94; BMI 29.8
[2022-02-28 17:51] LABS: Basophils # 0.1 10^3/uL (0.0-0.1); Basophils % 0.4 %; Eosinophils # 0.3 10^3/uL (0.0-0.8); Eosinophils % 2.2 %; Hematocrit 41.5 % (42.0-52.0); Hemoglobin 14.3 g/dL (11.7-16.6); Lymphocytes # 2.1 10^3/uL (0.8-4.8); Lymphocytes % 18.6 %; Mean Corpuscular HGB Conc 34.5 g/dL (30.0-36.0); Mean Corpuscular Hemoglobin 30.4 pg (28.0-34.0); Mean Corpuscular Volume 88.1 fl (80-94); Mean Platelet Volume 11.7 fL (7.4-10.4); Monocytes # 0.8 10^3/uL (0.2-0.9); Monocytes % 7.3 %; Neutrophils # 7.96 10^3/uL (1.8-7.7); Neutrophils % 71.1 %; Nucleated Red Blood Cells % 0 %; Platelet Count 249 10^3/cmm (130-400); Red Blood Count 4.71 10^6/uL (4.1-5.3); Red Cell Distribution Width 13.2 % (12.1-15.1); White Blood Count 11.2 10^3/uL (4.0-10.0)
[2022-02-28 18:05] LABS: Alanine Aminotransferase 19 U/L (0-41); Albumin Level 4.2 g/dL (3.5-5.2); Alkaline Phosphatase 81 U/L (40-130); Anion Gap 14.8 (5-19); Aspartate Amino Transferase 15 U/L (0-40); Blood Urea Nitrogen 17 mg/dL (6-20); Calcium 8.9 mg/dL (8.5-10.5); Carbon Dioxide 28 mmol/L (22-29); Chloride 101 mmol/L (98-107); Creatinine Clr Calc Pharmacy 126.7781; Globulin 2.9 g/dL (1.3-4.6); Glomerular Filtration Rate 91.3 mL/min (90-130); Glucose 160 mg/dL (65-115); Osmolality Calculated 295 mOsm/kg (285-295); Potassium 3.8 mmol/L (3.5-5.1); Sodium 140 mmol/L (136-145); Total Bilirubin 0.4 mg/dL (0.15-1.2); Total Protein 7.1 g/dL (6.6-8.7)
--- NOTE | 2022-02-28 19:31 | ED_ITS ---
HPI - General Adult General: Chief complaint: Extremity Injury, Lower Stated complaint: Left foot sore, Diabetic Time Seen by Provider: 02/28/22 19:20 History of Present Illness: Patient is a 47-year-old male with history of diabetes, previous right foot infection who presents the emergency room with left foot pain and swelling for 1 day. Patient tells me that last year, he was admitted to the hospital for concerns of the exact same thing on the right foot. Patient first noted noticed redness between the first and second digit and significant swelling of the right foot for progressing to an abscess and cellulitis of the affected foot. Patient received IV antibiotics and he tells me that he was close to getting amputation on the foot. Patient is scared about the swelling and redness on the left foot. Patient complains of pain of the left foot since yesterday night. Patient denies any fever/chills, IV drug use, any trauma or injury to that affected foot. Patient does not know how he sustained the swelling and pain on the L foot. Onset:yesterday night Duration:ongoing Location:L foot swelling and pain Severity:severe Associated symptoms: Deny chest pain, dyspnea, nausea, rash, palpitations or vomiting Review of Systems Const: Denies: fever(s) or chills Eyes: Denies: change in vision ENMT: Denies: mouth pain Card: Denies: chest pain or palpitations Resp: Denies: dyspnea or non-productive cough GI: Denies: abdominal pain, nausea, vomiting or diarrhea : Denies: dysuria Musc: Reports: extremity pain (+L foot swelling/pain and erythema between the first and second digit) Skin/Breast: Denies: rash or new lesions Neuro: Denies: weakness in extremities Psych: Reports: other (Normal mood) Gm/Lymph: Denies: easy bruising PFSH ED PFSH: Medical History (Updated 02/28/22 @ 21:00 by Yasmine Mendez MD) Gout [place] War syndrome PTSD (post-traumatic stress disorder) Traumatic avulsion of nail plate of toe Surgical History H/O knee surgery H/O lymph node excision H/O shoulder surgery History of incision and drainage (~06/15/20) Right foot No history of previous surgery Family History Other Healthy adult Social History Smoking and tobacco status: former smoker Quit status (tobacco): has quit using tobacco Year quit tobacco: 2-3 ya Alcohol intake: current Alcohol intake frequency: holidays/special occasions only Lives independently: Yes Household members: spouse Marital status: service: Yes status: Retired Current occupational status: student Physical Exam Const: COMMON NORMALS: alert HENMT: COMMON NORMALS: atraumatic HEAD & SCALP: atraumatic MOUTH: moist mucous membranes not abnormal Eye: COMMON NORMALS: EOMs intact bilaterally and conjunctivae normal CONJUNCTIVA: Yes conjunctivae normal Neck/C-Spine: COMMON NORMALS: full ROM and supple Resp: COMMON NORMALS: normal respiratory effort and clear to auscultation bilaterally AUSCULTATION: clear to auscultation bilaterally Cardio: COMMON NORMALS: regular rate RATE: regular rate GI: COMMON NORMALS: Soft to palpation and non-tender PALPATION: Yes Soft to palpation Extremity: COMMON NORMALS: full ROM Neuro: SENSORIUM/ORIENTATION: Yes alert MOTOR EXAM: No Abnormal motor strength present and Other motor observations present (no focal motor deficits) Psych: COMMON NORMALS: speech normal SPEECH: Yes normal speech MOOD & AFFECT: Yes euthymic mood Skin: NARRATIVE SKIN EXAM: + Moderate warmth swelling and induration with warmth on the volar aspect of the left cloth dyeing range tender to palpation, mild erythema between the first interdigitary fold Course Vital Signs: Vital signs: Vital Signs Temperature 98.1 F 02/28/22 17:23 Pulse Rate 112 H 02/28/22 17:23 Respiratory Rate 18 02/28/22 20:14 Pulse Oximetry 98 02/28/22 20:14 Oxygen Delivery Me thod 02/28/22 17:23 MDM - General Adult Medical Decision Making Patient is a 47-year-old male with history of diabetes, previous right foot infection who presents the emergency room with left foot pain and swelling for 1 day. Physical exam, patient is afebrile but noted to be tachycardic to the low 100s. Patient is noted to have moderate swelling and induration with warmth on the volar aspect of the left foot with tenderness palpation. Patient is noted to have mild patches of erythema between the first and second digit. Patient continues to have moderate pain in the emergency room. Patient received 4 morphine. White count 11.2. ESR/CRP pending. XR did not show any gas pattern. CT of the foot showed diffuse volar edema with second metatarsal fx. Patient received vancomycin, and Zosyn. Pain appears to be controlled morphine. Patient was admitted hospital for concerns of diabetic foot infection. Disposition: observation Lab Data : 02/28/22 17:41 02/28/22 17:41 Radiology Impressions Foot X-Ray 02/28/22 19:38 IMPRESSION: Mid to distal 2nd metatarsal oblique mildly displaced fracture. Foot CT 02/28/22 20:02 IMPRESSION: 1. Negative for bony findings to suggest osteomyelitis. 2. Second metatarsal mid to distal diaphyseal mildly displaced fracture. 3. Diffuse subcutaneous edema about the foot, nonspecific. Laboratory Results WBC 11.2 10^3/uL (4.0-10.0) H 02/28/22 17:41 RBC 4.71 10^6/uL (4.1-5.3) 02/28/22 17:41 Hgb 14.3 g/dL (11.7-16.6) 02/28/22 17:41 Hct 41.5 % (42.0-52.0) L 02/28/22 17:41 MCV 88.1 fl (80-94) 02/28/22 17:41 MCH 30.4 pg (28.0-34.0) 02/28/22 17:41 MCHC 34.5 g/dL (30.0-36.0) 02/28/22 17:41 RDW 13.2 % (12.1-15.1) 02/28/22 17:41 Plt Count 249 10^3/cmm (130-400) 02/28/22 17:41 MPV 11.7 fL (7.4-10.4) H 02/28/22 17:41 Neut % (Auto) 71.1 % 02/28/22 17:41 Lymph % (Auto) 18.6 % 02/28/22 17:41 [place] % (Auto) 7.3 % 02/28/22 17:41 Eos % (Auto) 2.2 % 02/28/22 17:41 Baso % (Auto) 0.4 % 02/28/22 17:41 Neut # (Auto) 7.96 10^3/uL (1.8-7.7) H 02/28/22 17:41 Lymph # (Auto) 2.1 10^3/uL (0.8-4.8) 02/28/22 17:41 [place] # (Auto) 0.8 10^3/uL (0.2-0.9) 02/28/22 17:41 Eos # (Auto) 0.3 10^3/uL (0.0-0.8) 02/28/22 17:41 Baso # (Auto) 0.1 10^3/uL (0.0-0.1) 02/28/22 17:41 Nucleated RBC % (auto) 0 % 02/28/22 17:41 Nucleated RBCs # 0.0 /100WBC 02/28/22 17:41 ESR 3 mm/hr (0-10) 02/28/22 17:41 Sodium 140 mmol/L (136-145) 02/28/22 17:41 Potassium 3.8 mmol/L (3.5-5.1) 02/28/22 17:41 Chloride 101 mmol/L (98-107) 02/28/22 17:41 Carbon Dioxide 28 mmol/L (22-29) 02/28/22 17:41 Anion Gap 14.8 (5-19) 02/28/22 17:41 BUN 17 mg/dL (6-20) 02/28/22 17:41 Creatinine 0.9 mg/dL (0.7-1.2) 02/28/22 17:41 GFR Calculation 91.3 mL/min (90-130) 02/28/22 17:41 Glucose 160 mg/dL (65-115) H 02/28/22 17:41 Calculated Osmolality 295 mOsm/kg (285-295) 02/28/22 17:41 Lactate 1.7 mmol/L (0.5-2.2) 02/28/22 17:41 Calcium 8.9 mg/dL (8.5-10.5) 02/28/22 17:41 Total Bilirubin 0.4 mg/dL (0.15-1.2) 02/28/22 17:41 AST 15 U/L (0-40) 02/28/22 17:41 ALT 19 U/L (0-41) 02/28/22 17:41 Alkaline Phosphatase 81 U/L (40-130) 02/28/22 17:41 C-Reactive Protein 38.9 mg/L (0.0-4.9) H 02/28/22 17:41 Total Protein 7.1 g/dL (6.6-8.7) 02/28/22 17:41 Albumin 4.2 g/dL (3.5-5.2) 02/28/22 17:41 Globulin 2.9 g/dL (1.3-4.6) 02/28/22 17:41 Urine Color Yellow (Yellow) 02/28/22 Unknown Urine Appearance Clear (CLEAR) 02/28/22 Unknown Urine pH 5 (5-7) 02/28/22 Unknown Ur Specific [place] 1.020 (1.005-1.030) 02/28/22 Unknown Urine Protein Trace (Negative) 02/28/22 Unknown Urine Glucose (UA) 1+ (Normal) H 02/28/22 Unknown Urine Ketones Negative (Negative) 02/28/22 Unknown Urine Blood Neg (Negative) 02/28/22 Unknown Urine Nitrate Negative (Negative) 02/28/22 Unknown Urine Bilirubin Neg (Negative) 02/28/22 Unknown Urine Urobilinogen Norm mg/dL (Negative) 02/28/22 Unknown Ur Leukocyte Esterase Negative (Negative) 02/28/22 Unknown Urine RBC None /hpf (0-2) 02/28/22 Unknown Urine WBC None /hpf (0-5) 02/28/22 Unknown Ur Squamous Epith Cells 0-4 /hpf (0-5) H 02/28/22 Unknown Amorphous Sediment Not Reportable 02/28/22 Unknown Urine Bacteria None /hpf (NONE) 02/28/22 Unknown Urine Mucus 1+ /hpf 02/28/22 Unknown Imaging Data Other Imaging: Radiologist's impression: [address] [address] [address] Scan Report Signed Patient: Cooper Cruz Unit #: [id number] : 1975 Age/Sex: 47 / M ADM Date: 02/28/22 Loc: ER Room/Bed: Attending Dr: Ordering Provider/Ordering MD: Yasmine Mendez MD Date of Service: 02/28/22 Procedure(s): CT foot LT w con [id number] Accession Number(s): [id number] Report Number: [id number] PROCEDURE INFORMATION: Exam: CT Left Lower Extremity With Contrast, Foot Exam date and time: 02/28/2022 8:18 PM Age: 47 years old Clinical indication: Swelling, leg or foot; Patient HX: C/O left foot pain, focally to 2nd digit. Swelling and redness to dorsum of foot. History of diabetes. ; Additional info: Foot infection TECHNIQUE: Imaging protocol: CT of the Left lower extremity with intravenous contrast was performed. Exam focused on the foot. Radiation optimization: All CT scans at this facility use at least one of these dose optimization techniques: automated exposure control; mA and/or kV adjustment per patient size (includes targeted exams where dose is matched to clinical indication); or iterative reconstruction. Contrast material: OMNI 350; Contrast volume: 100 ml; Contrast route: INTRAVENOUS (IV);? COMPARISON: CR (LOW EXM, ) 02/28/2022 7:47 PM RADIATION DOSE METRICS: Total DLP (mGy-cm): 145.15 FINDINGS: Bones/joints: Second metatarsal mid to distal diaphyseal mildly displaced fracture.? Calcified heel spur. Soft tissues: Diffuse subcutaneous edema about the foot, nonspecific. CT/CT foot LT w con [id number] IMPRESSION: 1. Negative for bony findings to suggest osteomyelitis. 2. Second metatarsal mid to distal diaphyseal mildly displaced fracture. 3. Diffuse subcutaneous edema about the foot, nonspecific. ? Dictated By: Jared Dexter MD Signed By: Jared Dexter MD Signed Date/Time: 02/28/222100 DD/ 17 Discharge Plan Discharge Patient Disposition: Admitted As Inpatient Clinical Impression: Cellulitis of foot, Diabetic foot infection Condition: Stable Coding Level of Care Code ED Slot Machine Mechanic for Chg Fwd Exam Comprehensive
--- NOTE | 2022-02-28 19:38 | XRR_ITS ---
PROCEDURE INFORMATION: Exam: XR Left Foot Exam date and time: 02/28/2022 7:47 PM Age: 47 years old Clinical indication: Pain; Foot; Left; Additional info: Foot swelling TECHNIQUE: Imaging protocol: Radiologic exam of the Left foot. Views: 3 or more views. COMPARISON: No relevant prior studies available. FINDINGS: Bones/joints: Mid to distal 2nd metatarsal oblique mildly displaced fracture. Soft tissues: Normal. XR/XR foot LT min 3V* [id number] IMPRESSION: Mid to distal 2nd metatarsal oblique mildly displaced fracture.
[2022-02-28 19:48] LABS: Erythrocyte Sedimentation Rate 3 mm/hr (0-10)
[2022-02-28 19:53] LABS: C Reactive Protein 38.9 mg/L (0.0-4.9); Lactate (Lactic Acid level) 1.7 mmol/L (0.5-2.2)
--- NOTE | 2022-02-28 20:02 | CTR_ITS ---
PROCEDURE INFORMATION: Exam: CT Left Lower Extremity With Contrast, Foot Exam date and time: 02/28/2022 8:18 PM Age: 47 years old Clinical indication: Swelling, leg or foot; Patient HX: C/O left foot pain, focally to 2nd digit. Swelling and redness to dorsum of foot. History of diabetes. ; Additional info: Foot infection TECHNIQUE: Imaging protocol: CT of the Left lower extremity with intravenous contrast was performed. Exam focused on the foot. Radiation optimization: All CT scans at this facility use at least one of these dose optimization techniques: automated exposure control; mA and/or kV adjustment per patient size (includes targeted exams where dose is matched to clinical indication); or iterative reconstruction. Contrast material: OMNI 350; Contrast volume: 100 ml; Contrast route: INTRAVENOUS (IV); COMPARISON: CR (LOW EXM, ) 02/28/2022 7:47 PM RADIATION DOSE METRICS: Total DLP (mGy-cm): 145.15 FINDINGS: Bones/joints: Second metatarsal mid to distal diaphyseal mildly displaced fracture. Calcified heel spur. Soft tissues: Diffuse subcutaneous edema about the foot, nonspecific. CT/CT foot LT w con [id number] IMPRESSION: 1. Negative for bony findings to suggest osteomyelitis. 2. Second metatarsal mid to distal diaphyseal mildly displaced fracture. 3. Diffuse subcutaneous edema about the foot, nonspecific.
[2022-02-28 20:12] LABS: Urine Color Yellow (Yellow)
[2022-02-28 20:13] LABS: Add Urine Microscopic? YES; Bilirubin Urine Neg (Negative); Blood Urine Neg (Negative); Glucose Urine UA 1+ (Normal); Ketones Urine Negative (Negative); Leukocyte Esterase Urine Negative (Negative); Nitrate Urine Negative (Negative); Protein Urine Trace (Negative); Urine Appearance Clear (CLEAR); Urobilinogen Urine Norm (Negative); pH Urine 5 (5-7)
[2022-02-28 20:14] VITALS: RESP 18; O2SAT 98
[2022-02-28] MEDS: morphine 4 mg/mL SDV 1 mL IVP (20:14)
[2022-02-28 20:15] LABS: Add Urine Culture? No; Mucus Urine 1+ /hpf; Squamous Epithelial Cell Urine 0-4 /hpf (0-5)
[2022-02-28] MEDS: piperacillin-tazobactam 4.5 GM in sodium chloride 0.9% (plus) 50 ML IV (20:15)
[2022-02-28] MEDS: iohexol 350 mg/mL 100 mL Btl IV (20:42)
[2022-02-28] MEDS: vancomycin 1,000 MG in sodium chloride 0.9% 250 ML 250 MG IV (21:38)
[2022-02-28 22:02] VITALS: BP 151/104; PULSE 89; RESP 18; O2SAT 98
--- NOTE | 2022-02-28 22:22 | P.HP_ITS ---
Providers/Chief Complaint Admitting Physician: Karla Jay MD Primary Care Provider: FAITH Landers Chief Complaint: Left foot sore, Diabetic History of Present Illness Cooper Cruz is a 47 year old male presenting today with 2 to 3 days of left foot swelling. Patient states that he was in his usual state of health until about 2 days ago when he started to notice some bruising develop in between his toe and the first digit. Slowly his foot started to swell and become painful as well. Patient has a history of cellulitis in the right foot which required debridement and antibiotics, and concerned about cellulitis he presented to the emergency room today. He denies any preceding trauma. He has been wearing new boots over the last 3 months, however denies any trauma from these boots. 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 On presentation here he was noted to be tender upon palpation along the dorsal aspect. Bruising and swelling is noted around his toe and first digit. CT of the foot has been performed to evaluate for any underlying abscess, currently pending at this time. Denies any fever or chills. He has a history of type 1 diabetes, last A1c of 11. He denies any known neuropathy or lower extremity vascular issues. Denies any recent athlete's foot. He has onycholysis, possible onychomycosis affecting his toenails, however states this has been longstanding for at least 20 years. Review of Systems General: Reports: 10 or more systems reviewed and unremarkable except in HPI and below Const: Denies: fever(s), chills or body aches Eyes: Denies: change in vision, blurry vision or photophobia ENMT: Reports: hoarseness; Denies: throat pain, enlarged tonsils, odynophagia or nasal congestion Card: Denies: chest pain, palpitations, irregular heart rhythm, edema, swelling of feet/ankles, lightheadedness, pre-syncope, dyspnea on exertion or orthopnea Resp: Denies: dyspnea, productive cough, non-productive cough, wheezing, stridor, pain on inspiration, change in phlegm color, hemoptysis or chest congestion GI: Denies: abdominal pain, nausea, vomiting, hematemesis, coffee ground emesis, dysphagia, heartburn, diarrhea, constipation, GI cramping, change in stool character, hematochezia or melena : Denies: flank pain, dysuria, urinary frequency, urinary urgency, urinary hesitancy or hematuria Musc: Denies: neck pain, back pain, extremity pain, joint swelling, joint warmth or deformity Neuro: Denies: headache(s), numbness in extremities, weakness in extremities, sensory changes, difficulty walking, frequent falls, dizziness, vertigo, behavioral changes, Slurred speech present or seizure-like activity Psych: Denies: anxiety, depression, suicidal ideation or homicidal ideation Endo: Denies: polyuria, polydipsia, tired all the time, cold intolerance or hot flashes Gm/Lymph: Denies: easy bruising or easy bleeding Medications/Allergies Home Medications Medication Instructions Recorded Confirmed Last Taken Type indomethacin 50 mg capsule 25 - 50 mg PO PRN 06/12/20 11/13/21 06/12/20 History naproxen sodium 220 mg tablet 440 mg PO BEDTIME 06/12/20 11/13/21 06/11/20 History (Layla) been taking a week sertraline 100 mg tablet 50 mg PO QAM 06/12/20 11/13/21 06/12/20 History pen needle, diabetic 32 gauge x #360 ea 08/10/20 11/13/21 Unknown Rx (BD Estephanie 2nd Gen Pen Needle) glucagon HCl 1 mg solution for 1 mg SUBCUT Q20M PRN hypoglycemia 09/01/20 11/13/21 Unknown Rx injection (Glucagon (HCl) #2 ea Emergency Kit) blood-glucose meter,continuous #1 ea 01/31/21 11/13/21 Unknown Rx (Dexcom G6 Web Content Manager [facility] [place]) subcutaneous insulin pump #1 ea 04/03/21 11/13/21 Unknown Rx subcutaneous insulin pump #1 ea 06/08/21 11/13/21 Unknown Rx blood-glucose sensor (Dexcom G6 #3 ea 10/15/21 11/13/21 Unknown Rx Sensor device) blood-glucose transmitter (Dexcom #3 ea 10/15/21 11/13/21 Unknown Rx G6 Transmitter device) cephalexin 750 mg capsule 750 mg PO BID toe injury #14 caps 11/13/21 11/13/21 Unknown Rx insulin aspart U-100 100 unit/mL See Rx Instructions .Route 12/11/21 Unknown Rx (3 mL) subcutaneous pen (Novolog .COMPLEX #30 mL Flexpen U-100 Insulin aspart) insulin glargine 100 unit/mL (3 32 unit (0.32 mL) SUBCUT DAILY not 12/11/21 Unknown Rx mL) subcutaneous pen (Lantus taken for 3 months #30 mL Solostar U-100 Insulin) Allergies Allergy/AdvReac Type Severity Reaction Status Date / Time No Known Allergies Allergy Verified 11/13/21 08:45 PFSH Acute PFSH: Medical History Gout [place] War syndrome PTSD (post-traumatic stress disorder) Traumatic avulsion of nail plate of toe Surgical History H/O knee surgery H/O lymph node excision H/O shoulder surgery History of incision and drainage (~06/15/20) Right foot No history of previous surgery Family History Other Healthy adult Social History Smoking and tobacco status: former smoker Quit status (tobacco): has quit using tobacco Year quit tobacco: 2-3 ya Alcohol intake: current Alcohol intake frequency: holidays/special occasions only Lives independently: Yes Household members: spouse Marital status: service: Yes status: Retired Current occupational status: student Vitals/I&O/Wt Last Vital Signs Temp 98.1 F 02/28/22 17:23 Pulse 89 02/28/22 22:02 Resp 18 02/28/22 22:02 BP 151/104 02/28/22 22:02 Pulse Ox 98 02/28/22 22:02 O2 Del Method 02/28/22 17:23 02/28/22 02/28/22 02/28/22 06:59 14:59 22:59 Intake Total 50 / 50 Balance 50 / 50 Weight last 48 hrs Weight 99.79 kg Physical Exam Narrative: General: No acute distress, AO x3 HEENT: PERRLA, pupils bilaterally equal and reactive, pallors not present Chest: Normal vesicular breath sounds, no added sounds, equal good air entry bilaterally CVS: S1-S2 regular, no murmurs, no tachycardia, no gallops, no rubs Abdomen: Soft, nontender, no organomegaly, bowel sounds present Neuro: No focal deficits, no facial deformity, AO x3, power 5/5 in all limbs Extremities: Noted ecchymosis between great toe and first digit. Tender to palpation over anterior two third of the plantar aspect of foot along with associated swelling. Some streaking noted on the dorsal aspect additionally. Data : 02/28/22 17:41 02/28/22 17:41 A&P Assessment and plan (1) Cellulitis of foot: 47-year-old male with uncontrolled diabetes admitted today for pain swelling and erythema of the left foot, clinical findings concerning for cellulitis. Admit to [facility] Start empiric antibiotic treatment with piperacillin tazobactam and vancomycin for broad-spectrum coverage. No current signs of overt sepsis. As needed morphine, ibuprofen and Percocet alternating for pain management. Awaiting CT of his foot to evaluate for any underlying abscesses. Plan Type 1 diabetes mellitus: Continue insulin Lantus 38 units at bedtime, high-dose sliding scale. Continue home dose of sertraline. Attestations Medical Necessity Statement*: Anticipate less than 2 midnight admission for foot cellulitis, IV antibiotics, pending imaging studies. Coding Level of Care Code Acute Certified Massage Therapist for [facility] [place] Diagnoses Cellulitis of foot L03.119
--- NOTE | 2022-02-28 23:20 | PC.PHAR ---
Pharmacokinetic dosing service Date: Time: 2319 Objective: Patient: Cooper Cruz Floor: 256-2 Age: 47 yo Serum creatinine: 0.9 mg/dL Height: 72.0 Inches Weight (kg): 99.79 Diagnosis: Relevant medical/social history: Cultures and sensitivities: Other labs: Assessment: IBW (kg): 77.60 Dosing wt(kg): 99.79 Estimated Creatinine clearance (ml/min): 113.8 CRCL method: Cockcroft and Gault using ibw(default). Drug selected: Vancomycin Loading dose (mg): 0 Vd (liters): 89.8 (factor used: 0.9 L/kg) Brent (hr-1): 0.099 Half life (hrs): 7.00 Recommended dose: 1500 mg Interval: 8 hrs Infusion time (hrs): 1.5 Predicted peak (mcg/mL): 28.4 Predicted trough (mcg/mL): 14.92 Total body weight is being used for vancomycin dosing. Renal function is stable [ ] /unstable [ ] Recommendations: Give Vancomycin 1500 mg q 8 hrs with an expected Cpeak of 28.4 mcg/ml and an expected Ctrough of 14.92 mcg/ml Renal dosing of other antibiotics (review renal dosing of other medications and list guidelines here): Thank you for the consult, will continue to follow. Signature: Karmen Jenkins [facility]
[2022-02-28 23:27] VITALS: RESP 17
[2022-02-28] MEDS: morphine 4 mg/mL SDV 1 mL 2 MG IVP (23:27)
[2022-02-28] MEDS: enoxaparin 40 mg/0.4 mL Syringe SUBCUT (23:27)
[2022-03-01] VITALS: BP 151/89; PULSE 73; RESP 17; TEMP 36.4; O2SAT 95
[2022-03-01 04:00] VITALS: BP 156/91; PULSE 71; RESP 17; TEMP 36.6; O2SAT 94
[2022-03-01 05:07] VITALS: RESP 17
[2022-03-01] MEDS: morphine 4 mg/mL SDV 1 mL IVP (05:07)
[2022-03-01] MEDS: vancomycin 1,500 MG/300 ML PIGGYBACK 200 MG IV (05:08)
[2022-03-01 05:13] LABS: Basophils # 0.1 10^3/uL (0.0-0.1); Basophils % 0.6 %; Eosinophils # 0.3 10^3/uL (0.0-0.8); Eosinophils % 3.3 %; Hematocrit 39.4 % (42.0-52.0); Hemoglobin 13.4 g/dL (11.7-16.6); Lymphocytes # 2.1 10^3/uL (0.8-4.8); Lymphocytes % 25.2 %; Mean Corpuscular Hemoglobin 30.4 pg (28.0-34.0); Mean Corpuscular Volume 89.3 fl (80-94); Mean Platelet Volume 11.9 fL (7.4-10.4); Monocytes # 0.6 10^3/uL (0.2-0.9); Monocytes % 7.2 %; Neutrophils # 5.32 10^3/uL (1.8-7.7); Neutrophils % 63.5 %; Nucleated Red Blood Cells % 0 %; Platelet Count 207 10^3/cmm (130-400); Red Blood Count 4.41 10^6/uL (4.1-5.3); Red Cell Distribution Width 13.3 % (12.1-15.1); White Blood Count 8.4 10^3/uL (4.0-10.0)
[2022-03-01 05:32] LABS: Alanine Aminotransferase 15 U/L (0-41); Albumin Level 3.7 g/dL (3.5-5.2); Alkaline Phosphatase 68 U/L (40-130); Anion Gap 14.4 (5-19); Aspartate Amino Transferase 12 U/L (0-40); Blood Urea Nitrogen 13 mg/dL (6-20); Calcium 8.7 mg/dL (8.5-10.5); Carbon Dioxide 26 mmol/L (22-29); Chloride 100 mmol/L (98-107); Globulin 2.7 g/dL (1.3-4.6); Glomerular Filtration Rate 72.4 mL/min (90-130); Glucose 196 mg/dL (65-115); Osmolality Calculated 288 mOsm/kg (285-295); Potassium 4.4 mmol/L (3.5-5.1); Sodium 136 mmol/L (136-145); Total Bilirubin 0.3 mg/dL (0.15-1.2); Total Protein 6.4 g/dL (6.6-8.7)
--- NOTE | 2022-03-01 07:10 | P.CONIM_ITS ---
Providers/Reason For Consult Consulting Physician/Specialty*: Podiatry Reason for Consult*: Left foot pain, redness and 2nd metatarsal fracture Attending Physician: Karla Jay MD Primary Care Provider: FAITH Landers History of Present Illness History of Present Illness Cooper Cruz is a 47 year old male who presented to the emergency department on 02/28/2022 for left foot pain swelling and redness. He states that this has been going on for 1 day. His main concern was infection as approximately 1 year ago he had a similar incident on the right foot but deve loped an abscess and needed surgical incision and drainage. He did not want to have to go through that again so he promptly presented to the emergency department for work-up and evaluation. Patient has a history of type 1 diabetes, uncontrolled. Last A1c recorded was 11%. Patient does have a history of neuropathy. He states that the pain in his left foot was worse 2 nights ago. It is manageable at rest. He denies any fever, chills, nausea, vomiting, shortness of breath, chest pain. Denies any other pedal complaints at this time. Review of Systems General: Reports: 10 or more systems reviewed and unremarkable except in HPI and below Const: Denies: fever(s), chills or fatigue Eyes: Denies: change in vision ENMT: Denies: sinus pain Card: Denies: chest pain, palpitations or lightheadedness Resp: Denies: dyspnea GI: Denies: abdominal pain, nausea or vomiting Musc: Reports: extremity pain, extremity swelling and limited range of motion; Denies: neck pain or back pain Skin/Breast: Reports: skin swelling Neuro: Denies: numbness in extremities Medications/Allergies Home Medications Medication Instructions Recorded Confirmed Last Taken Type indomethacin 50 mg capsule 25 - 50 mg PO PRN 06/12/20 11/13/21 06/12/20 History naproxen sodium 220 mg tablet 440 mg PO BEDTIME 06/12/20 11/13/21 06/11/20 History (Aleve) been taking a week sertraline 100 mg tablet 50 mg PO QAM 06/12/20 11/13/21 06/12/20 History pen needle, diabetic 32 gauge x #360 ea 08/10/20 11/13/21 Unknown Rx (BD Estephanie 2nd Gen Pen Needle) glucagon HCl 1 mg solution for 1 mg SUBCUT Q20M PRN hypoglycemia 09/01/20 11/13/21 Unknown Rx injection (Glucagon (HCl) #2 ea Emergency Kit) blood-glucose meter,continuous #1 ea 01/31/21 11/13/21 Unknown Rx (Dexcom G6 Veneer Press Operator misc) subcutaneous insulin pump #1 ea 04/03/21 11/13/21 Unknown Rx subcutaneous insulin pump #1 ea 06/08/21 11/13/21 Unknown Rx blood-glucose sensor (Dexcom G6 #3 ea 10/15/21 11/13/21 Unknown Rx Sensor device) blood-glucose transmitter (Dexcom #3 ea 10/15/21 11/13/21 Unknown Rx G6 Transmitter device) cephalexin 750 mg capsule 750 mg PO BID toe injury #14 caps 11/13/21 11/13/21 Unknown Rx insulin aspart U-100 100 unit/mL See Rx Instructions .Route 12/11/21 Unknown Rx (3 mL) subcutaneous pen (Novolog .COMPLEX #30 mL Flexpen U-100 Insulin aspart) insulin glargine 100 unit/mL (3 32 unit (0.32 mL) SUBCUT DAILY not 12/11/21 Unknown Rx mL) subcutaneous pen (Lantus taken for 3 months #30 mL Solostar U-100 Insulin) Allergies Allergy/AdvReac Type Severity Reaction Status Date / Time No Known Allergies Allergy Verified 11/13/21 08:45 Current Medications Generic Name Dose Route Start Last Admin Trade Name Freq PRN Reason Stop Dose Admin Enoxaparin Sodium 40 mg 02/28/22 23:00 02/28/22 23:27 Enoxaparin 40 Mg/0.4 Ml Syringe SUBCUT 40 mg Q24H SUREKHA Administration Vancomycin/PEG/NADA/Lysine/Water 1,500 mg in 300 mls @ 200 mls/hr 03/01/22 06:00 03/01/22 05:08 Vancocin IV 200 mls/hr Q8H SUREKHA Administration Morphine Sulfate 4 mg 02/28/22 22:52 03/01/22 05:07 Morphine 4 Mg/Ml Sdv 1 Ml IVP 4 mg Q4H PRN Administration SEVERE PAIN Morphine Sulfate 2 mg 02/28/22 22:52 02/28/22 23:27 Morphine 4 Mg/Ml Sdv 1 Ml IVP 2 mg Q4H PRN Administration SEVERE PAIN Sertraline HCl 50 mg 03/01/22 06:00 03/01/22 05:20 Sertraline 50 Mg Tablet PO Not Given QAM SUREKHA PFSH Acute PFSH: Medical History Gout [place] War syndrome PTSD (post-traumatic stress disorder) Traumatic avulsion of nail plate of toe Surgical History H/O knee surgery H/O lymph node excision H/O shoulder surgery History of incision and drainage (~06/15/20) Right foot No history of previous surgery Family History Other Healthy adult Social History Smoking and tobacco status: former smoker Quit status (tobacco): has quit using tobacco Year quit tobacco: 2-3 ya Alcohol intake: current Alcohol intake frequency: holidays/special occasions only Lives independently: Yes Household members: spouse Marital status: service: Yes status: Retired Current occupational status: student Vitals/I&O/Wt Last Vital Signs Temp 97.8 F 03/01/22 04:00 Pulse 71 03/01/22 04:00 Resp 17 03/01/22 05:07 BP 156/91 03/01/22 04:00 Pulse Ox 94 03/01/22 04:00 O2 Del Method 03/01/22 04:00 02/28/22 03/01/22 03/01/22 22:59 06:59 14:59 Intake Total 50 / 50 240 / 290 Balance 50 / 50 240 / 290 Weight last 48 hrs Weight 220 lb Physical Exam Narrative: GENERAL: A&O x 3 VASCULAR: DP/PT pulses palpable 2/4 with CFT intact, <3seconds to distal digits, edema to left midfoot consistent with posttraumatic state. DERMATOLOGICAL: Skin turgor and temperature is within normal limits. No open wounds or skin lesions noted. Nails 1 through 5 bilaterally are dystrophic and thickened. Ecchymoses noted to medial aspect of second digit into first interspace of left foot MUSCULOSKELETAL: Tenderness with palpation of left foot second metatarsal. 5/5 muscle strength in all 4 quadrants of the lower extremity when tested against resistance, guarding with dorsiflexion plantarflexion secondary to posttraumatic state. Left hallux valgus deformity abutting the second digit. NEUROLOGICAL: Neurological sensation to the affected foot and ankle is diminished through L4-S1 dermatomes to light touch, diminished sensation extends proximally to the level of the midfoot IMAGING: -X-ray: 3 views of the left foot taken during this admission were personally interpreted by me which show second tarsal fracture with minimal sagittal plane displacement. Increased off tissue density consistent with posttraumatic state. No radiolucencies within the soft tissues or signs of deep space infection or subcutaneous emphysema. No foreign bodies noted. ?CT scan: CT scan of the left lower extremity shows increased left tissue density around the area of the midfoot consistent with posttraumatic state. Left foot second metatarsal sagittally displaced fracture. 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 It is my believe that swelling and redness is secondary to posttraumatic state. -I will order a cam walker boot for the patient -Patient will be weightbearing as tolerated to left foot in cam walker boot. I emphasized importance of not walking on this foot without the cam walker boot as it will lead to further displacement and possibly surgery. -Once patient receives cam walker boot, he will be okay to discharge from podiatry standpoint -Patient to rest, ice, elevate affected extremity and take [id number] Tylenol/Motrin for pain -Patient to follow-up with Dr. Aponte in office next week. Dr. 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
--- NOTE | 2022-03-01 07:43 | P.DS_ITS ---
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 Fay Gamboa Niko Cruz is a 47 year old male who presented to the emergency department on 02/28/2022 for left foot pain swelling and redness.? He states that this has been going on for 1 day.? His main concern was infection as approximately 1 year ago he had a similar incident on the right foot but developed an abscess and needed surgical incision and drainage.? He did not want to have to go through that again so he promptly presented to the emergency department for work-up and evaluation.? Patient has a history of type 1 diabetes, uncontrolled.? Last A1c recorded was 11%.? Patient does have a history of neuropathy.? He states that the pain in his left foot was worse 2 nights ago.? It is manageable at rest.? He denies any fever, chills, nausea, vomiting, shortness of breath, chest pain.? Denies any other pedal complaints at this time. Hospital course He was evaluated by locomotive driver Dr. Montiel, recommended joseph rangel, close follow-up with him in the office, his redness and swelling is related to posttraumatic state. Patient will benefit from rest, icing and elevation of foot and he can also get [id number] Tylenol or Motrin for pain, no evidence of infection Physical Exam Narrative: S1, S2 Euvolemic Currently on room air Awake and alert Abdomen soft Tenderness with palpation of left foot second metatarsal.? 5/5 muscle strength in all 4 quadrants of the lower extremity when tested against resistance, guarding with dorsiflexion plantarflexion secondary to posttraumatic state.? Left hallux valgus deformity abutting the second digit. NEUROLOGICAL: Neurological sensation to the affected foot and ankle is diminished through L4-S1 dermatomes to light touch, diminished sensation extends proximally to the level of the midfoot Discharge Data Studies Completed and Pending Completed Studies During Hospitalization Category Date Time Status CT foot LT w con [id number] Stat Cat Scan 02/28/22 20:02 Completed XR foot LT min 3V* [id number] Stat Exams 02/28/22 19:38 Completed Radiology Impressions Foot X-Ray 02/28/22 19:38 IMPRESSION: Mid to distal 2nd metatarsal oblique mildly displaced fracture. Foot CT 02/28/22 20:02 IMPRESSION: 1. Negative for bony findings to suggest osteomyelitis. 2. Second metatarsal mid to distal diaphyseal mildly displaced fracture. 3. Diffuse subcutaneous edema about the foot, nonspecific. Laboratory Results WBC 8.4 10^3/uL (4.0-10.0) 03/01/22 04:50 RBC 4.41 10^6/uL (4.1-5.3) 03/01/22 04:50 Hgb 13.4 g/dL (11.7-16.6) 03/01/22 04:50 Hct 39.4 % (42.0-52.0) L 03/01/22 04:50 MCV 89.3 fl (80-94) 03/01/22 04:50 MCH 30.4 pg (28.0-34.0) 03/01/22 04:50 MCHC 34.0 g/dL (30.0-36.0) 03/01/22 04:50 RDW 13.3 % (12.1-15.1) 03/01/22 04:50 Plt Count 207 10^3/cmm (130-400) 03/01/22 04:50 MPV 11.9 fL (7.4-10.4) H 03/01/22 04:50 Neut % (Auto) 63.5 % 03/01/22 04:50 Lymph % (Auto) 25.2 % 03/01/22 04:50 [place] % (Auto) 7.2 % 03/01/22 04:50 Eos % (Auto) 3.3 % 03/01/22 04:50 Baso % (Auto) 0.6 % 03/01/22 04:50 Neut # (Auto) 5.32 10^3/uL (1.8-7.7) 03/01/22 04:50 Lymph # (Auto) 2.1 10^3/uL (0.8-4.8) 03/01/22 04:50 [place] # (Auto) 0.6 10^3/uL (0.2-0.9) 03/01/22 04:50 Eos # (Auto) 0.3 10^3/uL (0.0-0.8) 03/01/22 04:50 Baso # (Auto) 0.1 10^3/uL (0.0-0.1) 03/01/22 04:50 Nucleated RBC % (auto) 0 % 03/01/22 04:50 Nucleated RBCs # 0.0 /100WBC 03/01/22 04:50 ESR 3 mm/hr (0-10) 02/28/22 17:41 Sodium 136 mmol/L (136-145) 03/01/22 04:50 Potassium 4.4 mmol/L (3.5-5.1) 03/01/22 04:50 Chloride 100 mmol/L (98-107) 03/01/22 04:50 Carbon Dioxide 26 mmol/L (22-29) 03/01/22 04:50 Anion Gap 14.4 (5-19) 03/01/22 04:50 BUN 13 mg/dL (6-20) 03/01/22 04:50 Creatinine 1.1 mg/dL (0.7-1.2) 03/01/22 04:50 GFR Calculation 72.4 mL/min (90-130) L 03/01/22 04:50 Glucose 196 mg/dL (65-115) H 03/01/22 04:50 Calculated Osmolality 288 mOsm/kg (285-295) 03/01/22 04:50 Lactate 1.7 mmol/L (0.5-2.2) 02/28/22 17:41 Calcium 8.7 mg/dL (8.5-10.5) 03/01/22 04:50 Total Bilirubin 0.3 mg/dL (0.15-1.2) 03/01/22 04:50 AST 12 U/L (0-40) 03/01/22 04:50 ALT 15 U/L (0-41) 03/01/22 04:50 Alkaline Phosphatase 68 U/L (40-130) 03/01/22 04:50 C-Reactive Protein 38.9 mg/L (0.0-4.9) H 02/28/22 17:41 Total Protein 6.4 g/dL (6.6-8.7) L 03/01/22 04:50 Albumin 3.7 g/dL (3.5-5.2) 03/01/22 04:50 Globulin 2.7 g/dL (1.3-4.6) 03/01/22 04:50 Urine Color Yellow (Yellow) 02/28/22 Unknown Urine Appearance Clear (CLEAR) 02/28/22 Unknown Urine pH 5 (5-7) 02/28/22 Unknown Ur Specific [place] 1.020 (1.005-1.030) 02/28/22 Unknown Urine Protein Trace (Negative) 02/28/22 Unknown Urine Glucose (UA) 1+ (Normal) H 02/28/22 Unknown Urine Ketones Negative (Negative) 02/28/22 Unknown Urine Blood Neg (Negative) 02/28/22 Unknown Urine Nitrate Negative (Negative) 02/28/22 Unknown Urine Bilirubin Neg (Negative) 02/28/22 Unknown Urine Urobilinogen Norm mg/dL (Negative) 02/28/22 Unknown Ur Leukocyte Esterase Negative (Negative) 02/28/22 Unknown Urine RBC None /hpf (0-2) 02/28/22 Unknown Urine WBC None /hpf (0-5) 02/28/22 Unknown Ur Squamous Epith Cells 0-4 /hpf (0-5) H 02/28/22 Unknown Amorphous Sediment Not Reportable 02/28/22 Unknown Urine Bacteria None /hpf (NONE) 02/28/22 Unknown Urine Mucus 1+ /hpf 02/28/22 Unknown Vitals Last Vital Signs Temp 97.8 F 03/01/22 04:00 Pulse 71 03/01/22 04:00 Resp 17 03/01/22 05:07 BP 156/91 03/01/22 04:00 Pulse Ox 94 03/01/22 04:00 O2 Del Method 03/01/22 04:00 Discharge Plan Discharge Patient Disposition: Home Condition: Stable Prescriptions: New oxycodone-acetaminophen 5-325 mg tablet 1 tab PO Q8H PRN (Reason: pain) Qty: 14 0RF doxycycline hyclate 100 mg tablet 100 mg PO BID 3 Days Qty: 6 0RF sennosides-docusate sodium [Senna-S] 8.6-50 mg tablet 1 tab-cap PO BID PRN (Reason: constipation) Qty: 14 0RF Continued Glucagon (HCl) Emergency Kit 1 mg recon soln 1 mg SUBCUT Q20M PRN (Reason: hypoglycemia) Qty: 2 3RF Rx Instructions: until target blood sugar attained (DME) t:slim X2 Insulin Pump Misc See Rx Instructions .Route Qty: 1 0RF Rx Instructions: As directed (DME) subcutaneous insulin pump Misc See Rx Instructions .Route Qty: 1 0RF Rx Instructions: T slim insulin pump and supplies (DME) pen needle, diabetic [BD Estephanie 2nd Gen Pen Needle] 32 gauge x 5/32 needle See Rx Instructions .ROUTE .MEDSUPPLY Qty: 360 3RF Rx Instructions: test blood sugar 4 times a day (DME) Dexcom G6 Link And Link Knitting Machine Operator Misc See Rx Instructions .ROUTE .MEDSUPPLY Qty: 1 0RF Rx Instructions: used to take blood sugars (DME) Dexcom G6 Sensor Device See Rx Instructions .ROUTE .MEDSUPPLY Qty: 3 3RF Rx Instructions: used to check blood sugar 4 times a day (DME) Dexcom G6 Transmitter Device See Rx Instructions .ROUTE .MEDSUPPLY Qty: 3 3RF Rx Instructions: As directed Novolog Flexpen U-100 Insulin 100 unit/mL (3 mL) insulin pen See Rx Instructions .ROUTE .COMPLEX Qty: 30 3RF Rx Instructions: 12 units plus sliding scale tid to qid before meals 200-250 +2 units 250-300 +4 units 301-350 +6 units 351-400 +8 units 401-450 +10 units Lantus Solostar U-100 Insulin 100 unit/mL (3 mL) insulin pen 38 unit SUBCUT BEDTIME Discharge Orders: Discharge Order (Routine); Ordered 03/01/22 Ordered By: Dom Taylor Referrals: Jakob Patel DPM [Physician] - 4-7 days Graciela Shaikh FNP [Primary Care Provider] - 03/06/22 1:00 pm Patient Instructions: Opioid Safety Discharge Attestations Time Spent in Discharge Care*: less than 30 min Quality Metrics Clinical Quality Measures [ No reported AMI, CVA or VTE this stay] Coding Level of Care Code Acute Ch FW DC note Diagnoses Fracture of second metatarsal bone of left foot S92.322A Pain in left foot M79.672 Edema R60.9 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
--- NOTE | 2022-03-01 07:47 | PC.PHAR ---
pt states he takes care of his own medications-pt states all his meds except his insulin was dced a month or so ago-pt states he was taking a vitamin d2 62819 units q7d rx filled 12/17/21 90d/s and diclofenac dr 50mg bid filled 12/17/21 90d/s but states not taken for a month or so-rx written on 12/11/21 for lantus solostar 32 units daily pt states he uses 38 units hs-novolog flexpen written 12/11/21 for 12 units plus ss tid pt states he uses 12 units plus ss tid to qid -notes are made in the pharmacy comments
[2022-03-01 08:00] VITALS: BP 148/92; PULSE 71; RESP 16; TEMP 36.6; O2SAT 95
--- NOTE | 2022-03-01 08:04 | PC.NURSE ---
Pt has kylie on phone that reports blood sugar. Blood sugar is 195.
[2022-03-01 08:10] VITALS: PULSE 66; O2SAT 95
[2022-03-01] MEDS: insulin glargine 100 units/1 mL 32 UNIT SUBCUT (08:30)
[2022-03-01] MEDS: insulin lispro 100 unit/1 mL SUBCUT (08:31)
[2022-03-01] MEDS: piperacillin-tazobactam 3.375 GM in sodium chloride 0.9% (plus) 50 ML IV (08:32)
--- NOTE | 2022-03-01 09:21 | PC.CHAP ---
Pastoral Care Encounter/Spiritual Assessment Type of Contact [] Declined aircraft cabin cleaner visit [] Patient/Family/Request visit [] Outpatient visit [] Follow-up visit [] Physician referral [] Code/Alert [x] Routine visit [] Staff referral [] Actively dying [] Patient sleeping [] Family support [] [] Out of room [] Palliative care [] [] Receiving care in room [] Pre-surgical visit [] Trauma [] Long length of stay [] ICU visit [] Other: Relational/Emotional Strength [x] Patient feels connected with others/family/visitors/staff [] Distress [] Loneliness/isolation [] Abandonment Spirituality of Patient [] Person of Eleanor [] Attends Buddhist of their Eleanor [] Believes in Prayer [] Reads Bible or Samaritan materials [x] There are Spiritual issues to be addressed Preparation Supervisor Freezing Interventions x[x] Prayer x[] Active listening [x] Non-anxious presence [] Spiritual/emotional support [] Crisis/trauma care [] Spiritual counseling [] Bereavement support [] Provided bereavement packet [] Provided Bible/devotional materials [] Provided toy/stuffed animal, coloring book to patient or family member [] Provided Communion [] Anointing/[place] [] Salvation [] Completed spiritual assessment [] Other: Impact on Illness or Injury [] Angry [] Fearful [] Anxious [] Often cries [] Exhaustion [] Unable to work [] Unable to attend advent [] Unable to walk/stand [] Unable to read [] Unable to drive [] Unable to eat/drink [] Unable to sleep [] Unable to be with family [] Patient intubated [] Other: Summary Time spent with patient 5 min
--- NOTE | 2022-03-01 11:21 | PC.NURSE ---
Pt alert and oriented, provided Discharge education, pt had no questions and verbalized understanding.
[2022-03-01] MEDS: HYDROcodone-acetaminophen 5-325 mg Tablet 1 TAB PO (11:22)
[2022-03-01 12:34] VITALS: PULSE 66; O2SAT 95
== END 2022-03-01 12:37 | disposition home or self-care (01) ==
LOC: ER 21:16 → MEDSURG 21:49
PROVIDERS: Family Medicine; Admitting Provider Student in an Organized Health Care Education/Training Program; Emergency Provider Emergency Medicine; PCP Nurse Practitioner; Visit Provider Internal Medicine
DX: L03.119 Cellulitis of unspecified part of limb (principal); S92.322A Displaced fracture of second metatarsal bone, left foot, initial encounter for closed fracture; X58.XXXA Exposure to other specified factors, initial encounter; M79.672 Pain in left foot; R60.9 Edema, unspecified; K86.89 Other specified diseases of pancreas; Z79.4 Long term (current) use of insulin; E10.40 Type 1 diabetes mellitus with diabetic neuropathy, unspecified; Z87.891 Personal history of nicotine dependence
CPT/HCPCS: 36415; 73630; 73701; 80053; 81001; 83605; 85025; 85651; 86140; 96365; 96366; 96367; 96372; 96375; 96376; 97760; 99285; G0378; J1650; J1815; J2270; J2543; J3370; J7050; L4361; Q9967

== ENCOUNTER → 2022-03-06 13:02 | Outpatient (BNVA) | payer OTHER, SELFPAY | PROVIDERS: PCP Nurse Practitioner; Visit Provider Podiatrist Foot & Ankle Surgery | DX: S92.322A Displaced fracture of second metatarsal bone, left foot, initial encounter for closed fracture (principal); X58.XXXA Exposure to other specified factors, initial encounter; K86.89 Other specified diseases of pancreas; E11.649 Type 2 diabetes mellitus with hypoglycemia without coma; Z79.4 Long term (current) use of insulin | CPT/HCPCS: 73630; 99204 ==

== ENCOUNTER → 2022-03-21 14:56 | Outpatient (BNVA) | payer OTHER, SELFPAY | PROVIDERS: PCP Nurse Practitioner; Visit Provider Podiatrist Foot & Ankle Surgery | DX: S92.322D Displaced fracture of second metatarsal bone, left foot, subsequent encounter for fracture with routine healing (principal); X58.XXXD Exposure to other specified factors, subsequent encounter; K86.89 Other specified diseases of pancreas; E11.649 Type 2 diabetes mellitus with hypoglycemia without coma; Z79.4 Long term (current) use of insulin | CPT/HCPCS: 73630; 99214 ==

== ENCOUNTER 2022-05-13 20:00 | Outpatient (CLI) | payer OTHER, SELFPAY | END 2022-05-13 20:01 | disposition home or self-care (01) | LOC: SLEEP 05-14 06:17 | PROVIDERS: PCP Nurse Practitioner; Visit Provider Family Medicine | DX: G47.33 Obstructive sleep apnea (adult) (pediatric) (principal); S92.322D Displaced fracture of second metatarsal bone, left foot, subsequent encounter for fracture with routine healing; X58.XXXD Exposure to other specified factors, subsequent encounter; K86.89 Other specified diseases of pancreas; E11.649 Type 2 diabetes mellitus with hypoglycemia without coma; Z79.4 Long term (current) use of insulin | CPT/HCPCS: 73630; 95810; 99214 ==

== ENCOUNTER → 2022-05-14 14:48 | Outpatient (BNVA) | payer OTHER, SELFPAY | PROVIDERS: PCP Nurse Practitioner; Visit Provider Podiatrist Foot & Ankle Surgery | DX: S92.322D Displaced fracture of second metatarsal bone, left foot, subsequent encounter for fracture with routine healing (principal); X58.XXXD Exposure to other specified factors, subsequent encounter; K86.89 Other specified diseases of pancreas; E11.649 Type 2 diabetes mellitus with hypoglycemia without coma; Z79.4 Long term (current) use of insulin | CPT/HCPCS: 73630; 99215 ==

== ENCOUNTER 2022-05-23 10:29 | Day surgery (SDC) | payer OTHER, SELFPAY ==
--- NOTE | 2022-05-23 | XR_ITS ---
WS: [id number] C-ARM RADIOGRAPHS LEFT FOOT; 3 IMAGES HISTORY: Resection of malunion and open reduction internal fixation COMPARISON: 05/14/2022 Intraoperative imaging during plate and screw fixation second metatarsal. XR/XR foot LT min 3V* [id number] IMPRESSION: Intraoperative imaging during fixation second metatarsal.
[2022-05-23 11:23] LABS: Glucose Point of Care 110 mg/dL (70-110)
--- NOTE | 2022-05-23 11:29 | P.ANESASSM_ITS ---
Pre-Anesthetic Assessment Height/Weight: Height 1.83 m Weight 99.79 kg O2 Del Method 05/23/22 11:10 Preop Diagnosis: Left second metatarsal fracture Operation Date: 05/23/22 12:00 Proposed Procedures p ORIF LEFT SECOND METATARSAL FRACTURE 35486/S92.322A(Left) - Jakob Patel DPM Familial anesthetic complications: NOne Was Beta Mirian taken within 24 hours: N/A Was Clonidine taken within 24 hours: N/A Last intake: Intake Last Liquid Date 05/22/22 Last Liquid Time 21:00 Last Solid Date 05/22/22 Last Solid Time 21:00 Social Tobacco (chewless) and No alcohol Exam alert, oriented x 3, clear to auscultation bilaterally and regular rate & rhythm Airway Mallampati: Class I Dentition: full Chronic Renal Insufficiency Metabolic Diabetes Mellitus Neuropsych PTSD Anesthetic Plan ASA status: 3 Anesthesia: MAC Risk of > 500 ml blood loss (7ml/kg in children): No Medications/Allergies Home Medications Medication Instructions Recorded Confirmed Last Taken Type pen needle, diabetic 32 gauge x #360 ea 08/10/20 05/18/22 Unknown Rx (BD Estephanie 2nd Gen Pen Needle) glucagon HCl 1 mg solution for 1 mg SUBCUT Q20M PRN hypoglycemia 09/01/20 05/22/22 Unknown Rx injection (Glucagon (HCl) #2 ea Emergency Kit) blood-glucose meter,continuous #1 ea 01/31/21 05/18/22 Unknown Rx (Dexcom G6 Table Operator misc) subcutaneous insulin pump #1 ea 04/03/21 05/18/22 Unknown Rx subcutaneous insulin pump #1 ea 06/08/21 05/18/22 Unknown Rx blood-glucose sensor (Dexcom G6 #3 ea 10/15/21 05/18/22 Unknown Rx Sensor device) blood-glucose transmitter (Dexcom #3 ea 10/15/21 05/18/22 Unknown Rx G6 Transmitter device) oxycodone-acetaminophen 5 mg-325 1 tab PO Q8H PRN pain #14 tabs 03/01/22 05/22/22 Unknown Rx mg tablet hydrocodone 5 mg-acetaminophen 325 1 tab PO Q12H PRN pain 10 days #20 03/06/22 05/22/22 Unknown Rx mg tablet tabs sertraline 50 mg tablet 50 mg PO DAILY 05/22/22 05/22/22 05/22/22 History temazepam 50 mg PO DAILY 05/22/22 05/22/22 05/22/22 History Allergies Allergy/AdvReac Type Severity Reaction Status Date / Time No Known Allergies Allergy Verified 05/22/22 15:04 [facility] Anesthesia Medical History Cellulitis of foot 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 Diabetic foot infection Diabetic neuropathy Gout [place] War syndrome Long-term insulin use PTSD (post-traumatic stress disorder) Traumatic avulsion of nail plate of toe Surgical History H/O knee surgery H/O lymph node excision H/O shoulder surgery History of incision and drainage (~06/15/20) Right foot No history of previous surgery Family History Other Healthy adult Social History Smoking and tobacco status: never smoked Quit status (tobacco): has quit using tobacco Year quit tobacco: 2-3 ya Alcohol intake: current Alcohol intake frequency: holidays/special occasions only Lives independently: Yes Household members: spouse Marital status: service: Yes status: Retired Current occupational status: student Data Anesthesia Cardiac Studies: No Data to Display
[2022-05-23] MEDS: sodium chloride 0.9% 1,000 ML 30 ML IV (11:39)
--- NOTE | 2022-05-23 11:42 | W.PM.OPSUD ---
Surgery/Procedure H&P Update DATE OF PROCEDURE: May 23, 2022 DATE H&P PERFORMED: 05/14/22 CHANGES TO PREVIOUS DOCUMENTATION: none PREOP DIAGNOSIS: Left second metatarsal fracture PLANNED PROCEDURE: Operation Date: 05/23/22 12:00 Proposed Procedures p ORIF LEFT SECOND METATARSAL FRACTURE 02266/S92.322A(Left) - Jakob Patel DPM
[2022-05-23] MEDS: ceFAZolin 2,000 MG in sodium chloride 0.9% (plus) 50 ML 100 MG IV (11:55)
--- NOTE | 2022-05-23 12:43 | PM.OP ---
Operative Report Date of procedure: May 23, 2022 Pre-op diagnosis: Left second metatarsal fracture Left second metatarsal malunion Post-op diagnosis: Same Post-op findings: Malunion left second metatarsal fracture Procedure done: Resection of malunion and open reduction internal fixation left second metatarsal. CPT code 98888 Implants: Nisha 6-hole slim straight plate. [place] 2.4 mm locking and nonlocking screws, 4-0 Vicryl, 4-0 nylon. Injectables: 10 cc of Exparel. 20 cc of 0.5% Marcaine plain. Specimens removed/disposition: None Pathology: None Surgeon: Jakob Patel D.P.M. Citrus Fruit Packer: Isabela Davenport Estimated blood loss: 5 26 IV fluids: None Urine output: 0 Complications: None Findings: And left second metatarsal fracture. Brief History: Pleasant 47-year-old male presents for surgical consultation left second metatarsal fracture occurred 01/09/2022 and initially managed nonoperatively due to elevated A1c.? He has worked diligently with his primary care physician and has lowered his A1c to 7.9 with goals of surgical intervention.? He complains of pain on a daily basis and is dissatisfied with the position of the second metatarsal is requesting surgical correction.? I reviewed at length with the patient, the risks, potential complications, benefits, alternatives, expectations, and typical outcomes associated with the surgery. The risks and potential complications were explained in detail, including but not limited to infection, wound dehiscence or soft tissue complications, bleeding and hematoma, chronic edema, neuritis or nerve damage producing numbness or chronic pain, CRPS, failure to relieve pain or worsening pain, thick / painful / unsightly scar, limited motion / stiffness, malposition, delayed union, malunion, or nonunion, fracture, reaction to implants, anesthetic complications, venous thromboembolism, and deformity recurrence.? I discussed the notion of no regrets with the patient as it pertains to complications and outcomes. The patient seemed to understand the nature of the proposed care and required convalescence. They asked appropriate questions, answered to their satisfaction. They are aware no guarantees can be made as to a satisfactory outcome and they understand there may be other possible unforeseen complications or outcomes not listed here that will be treated accordingly if they arise. There were no written or implied guarantees given to the patient. They gave informed consent to proceed.? I reviewed Ray x-rays at today's visit left foot 3 view shows significant interval healing at the left second metatarsal with callus formation surrounding the fracture, there is displacement and significant angulation of the distal aspect of the second metatarsal left foot.? Patient is dissatisfied with the position and wishes to have it corrected he also complains of pain and swelling daily. Procedure: Under mild sedation the patient was brought to the operating room and placed on the operating table in supine position. A timeout was performed. Anesthesia was then administered by the anesthesia service. Local anesthesia was injected by myself consisting of 20 cc of 0.5% Marcaine plain in a left second ray block fashion as well as 10 cc of Exparel injected subcutaneously in a grid like fashion to the dorsal midfoot. Well-padded pneumatic tourniquet was applied to the left ankle. The left lower extremity was then scrubbed, prepped and draped utilizing normal aseptic technique. Left foot was exanguinated with an Esmarch bandage and the tourniquet inflated to 250 mmHg. Attention was then directed to the dorsal aspect of the left second metatarsal, second metatarsal head and base were palpated. Also able to palpate a bony callus formation at the fracture site. Directly over the second metatarsal left foot a linear longitudinal incision was made through skin with a #15 blade with dissection carried down through subcutaneous tissue, deep fascia and to the layer of periosteum of the second metatarsal utilizing sharp and blunt technique. Care was taken to retract and preserve neurovascular and tendinous structures. All bleeders were ligated and cauterized as necessary. A fracture hematoma and bony callus formation was appreciated and a malunion of the second metatarsal fracture which was resected, this was resected sharply with a oscillating saw, rongeur and all rough edges smoothed with a hand rasp. Second metatarsal fracture was then reduced anatomically in all 3 planes and fixated utilizing standard AO technique with a [place] slim 6-hole straight plate with combination of locking and nonlocking screws 2.4 mm in diameter. Excellent bony apposition and compression noted and anatomic reduction of the second metatarsal was appreciated in the AP, oblique and lateral views. No hardware violated adjacent joints. The incision was then flushed with copious amounts of sterile skin solution and closed with periosteum and subcutaneous tissue in separate layers closed with 4-0 Vicryl and skin closed with 4-0 nylon. The incision was then dressed with Adaptic, sterile 4 x 4's, Kerlix, Torres wrap and a cam boot was applied to the left lower extremity. Tourniquet was then deflated and a prompt hyperemic response was noted to the distal digits of the left foot. Patient tolerated the procedure and anesthesia well and was transferred to the PACU with vital signs stable and vascular status intact. Following a period of postop monitoring he will be discharged home, was given at home care instructions as well as follow-up as was my cell phone number to contact with any postoperative questions or concerns.
[2022-05-23 12:45] VITALS: BP 95/65; PULSE 88; RESP 14; TEMP 36.4; O2SAT 90
[2022-05-23 12:50] VITALS: BP 103/77; PULSE 96; RESP 16; O2SAT 90
[2022-05-23 12:55] VITALS: BP 120/86; PULSE 95; RESP 16; TEMP 36.1; O2SAT 90
[2022-05-23 13:10] VITALS: BP 117/86; PULSE 76; RESP 18; TEMP 36.4; O2SAT 95
[2022-05-23] MEDS: oxyCODONE-APAP 10-325 mg Tablet 1 TAB PO (13:24)
[2022-05-23 13:30] VITALS: BP 122/82; PULSE 78; RESP 18; TEMP 36.4; O2SAT 96
--- NOTE | 2022-05-23 16:52 | ANE.PACU2 ---
Inpatient post-anesthesia follow up: Airway intact: Yes Vital signs: Temperature 97.6 F Pulse Rate 78 Respiratory Rate 18 Blood Pressure 122/82 Pulse Oximetry 96 Oxygen Delivery Me thod Room Air Oxygen Flow Rate 2 Fraction of Inspir ed Oxygen Hydration adequate: Yes Nausea and vomiting: No Pain level: 1 Mental status: Baseline
== END 2022-05-23 13:45 | disposition home or self-care (01) ==
PROVIDERS: PCP Nurse Practitioner; Visit Provider Podiatrist Foot & Ankle Surgery
PROC: (CPT 28485; principal; 2022-05-23 12:00)
DX: S92.322P Displaced fracture of second metatarsal bone, left foot, subsequent encounter for fracture with malunion (principal); X58.XXXD Exposure to other specified factors, subsequent encounter; F17.220 Nicotine dependence, chewing tobacco, uncomplicated; E11.40 Type 2 diabetes mellitus with diabetic neuropathy, unspecified; Z79.4 Long term (current) use of insulin
CPT/HCPCS: 28485; 36416; 73630; 76000; 82962; C1713 ×2; C9290; J0690; J2250; J2704; J3010; J3490; J7030

== ENCOUNTER → 2022-06-13 15:06 | Outpatient (BNVA) | payer OTHER, SELFPAY | PROVIDERS: PCP Nurse Practitioner; Visit Provider Podiatrist Foot & Ankle Surgery | DX: Z98.890 Other specified postprocedural states (principal); X58.XXXA Exposure to other specified factors, initial encounter; S92.322A Displaced fracture of second metatarsal bone, left foot, initial encounter for closed fracture | CPT/HCPCS: 73630; 99024 ==

== ENCOUNTER → 2022-07-04 12:58 | Outpatient (BNVA) | payer OTHER, SELFPAY | PROVIDERS: PCP Nurse Practitioner; Visit Provider Podiatrist Foot & Ankle Surgery | DX: Z98.890 Other specified postprocedural states (principal); S92.322A Displaced fracture of second metatarsal bone, left foot, initial encounter for closed fracture; X58.XXXA Exposure to other specified factors, initial encounter | CPT/HCPCS: 73630; 99024 ==

== ENCOUNTER → 2022-08-01 13:07 | Outpatient (BNVA) | payer OTHER, SELFPAY | PROVIDERS: PCP Nurse Practitioner; Visit Provider Podiatrist Foot & Ankle Surgery | DX: Z98.890 Other specified postprocedural states (principal) | CPT/HCPCS: 73630; 99024 ==

== ENCOUNTER 2022-12-24 09:18 | Outpatient (CLI) | payer OTHER, SELFPAY ==
--- NOTE | 2022-12-24 | US_ITS ---
WS: [id number] ULTRASOUND ABDOMEN LIMITED CLINICAL INFORMATION: RIGHT UPPER QUADRANT PAIN WITH IBS SYMPTOMS COMPARISON: None. FINDINGS: Liver Size: Upper limits of normal Craniocaudal length: 15.3 cm. Echogenicity: Coarse Surface nodularity: None. Mass (size and location): None. Bile ducts Intrahepatic ducts: Normal. Common bile duct diameter: 0.5 cm. Gallbladder Normal. Gallstones: None. Gallbladder sludge: None. Gallbladder wall thickening: None. Pericholecystic fluid: None. Sonographic Call sign: Absent. Pancreas Normal as visualized. Right kidney: Normal. Hydronephrosis: None. Size: 10.1 cm x 4.7 cm x 3.8 cm. Abdominal aorta and IVC Visualized portions are normal. Ascites: None. US/US abdomen limited [id number] IMPRESSION: 1. Liver size upper limits of normal. Diffuse fatty infiltration liver. 2. No hydronephrosis in RIGHT kidney. 3. Normal gallbladder. 4. Normal common bile duct.
== END 2022-12-24 09:19 | disposition home or self-care (01) ==
PROVIDERS: PCP Nurse Practitioner; Visit Provider Nurse Practitioner
DX: R10.11 Right upper quadrant pain (principal); K76.0 Fatty (change of) liver, not elsewhere classified
CPT/HCPCS: 76705

== ENCOUNTER 2023-03-03 07:15 | Outpatient (CLI) | payer OTHER, SELFPAY ==
--- NOTE | 2023-03-03 07:33 | CT_ITS ---
WS: [id number] CT CHEST TECHNIQUE: Contrast enhanced CT of the chest with coronal and sagittal reformatted images. CLINICAL INFORMATION: XRAY SHOWED RIGHT LOWER LUNG NODULE COMPARISON: CTA 07/18/2019 DLP: 514.[address] scans at [facility] use at least one of these dose optimization techniques: automated e xposure control; mA and/or kV adjustment per patient size (includes targeted exams where dose is matc hed to clinical indication); or iterative reconstruction. FINDINGS: A few calcified granulomas. Calcified granuloma RIGHT lower lobe. No other suspicious pulmo nary parenchymal opacities. No acute pulmonary infiltrates. No focal pneumonia or pleural fluid. No a xillary lymphadenopathy. Diffuse fatty filtration of the liver. Normal GE junction. Adrenal glands are normal. Celiac and SMA are patent. Normal caliber thoracic aorta. No mediastinal or hilar lymphadenopathy. No axillary lymphadenopathy. IMPRESSION: 1. Calcified granuloma RIGHT lower lobe. No other suspicious pulmonary parenchymal opacities. 2. No acute pulmonary infiltrates. 3. No mediastinal or hilar lymphadenopathy. 4. Diffuse fatty filtration of the liver.
[2023-03-03] MEDS: iohexol 350 mg/mL 500 mL Btl (per mL) IV (07:47)
== END 2023-03-03 07:16 | disposition home or self-care (01) ==
PROVIDERS: PCP Nurse Practitioner; Visit Provider Nurse Practitioner
DX: R91.1 Solitary pulmonary nodule (principal); J84.10 Pulmonary fibrosis, unspecified
CPT/HCPCS: 71260; Q9967

== ENCOUNTER 2023-07-15 19:42 | Inpatient (IN) | payer OTHER, SELFPAY ==
[2023-07-15 19:47] VITALS: BP 208/128; PULSE 108; RESP 18; TEMP 36.8; O2SAT 96
--- NOTE | 2023-07-15 19:53 | CTR_ITS ---
PROCEDURE INFORMATION: Exam: CT Head Without Contrast Exam date and time: 07/15/2023 8:35 PM Age: 48 years old Clinical indication: Cognitive deficit; Altered mental status; Additional info: AMS TECHNIQUE: Imaging protocol: Computed tomography of the head without contrast. COMPARISON: No relevant prior studies available. FINDINGS: Brain: There is suggestion of tiny lacunar infarcts in the left basal ganglia notably in the lenticular nucleus and posterior internal capsule. There has no evidence of acute intracranial hemorrhage. No acute infarcts are identified. Cerebral ventricles: No ventriculomegaly. Paranasal sinuses: There is minimal right maxillary mucosal thickening and atelectasis of the right maxillary sinus. The paranasal sinuses are otherwise clear. Mastoid air cells: Visualized mastoid air cells are well aerated. Bones/joints: Unremarkable. No acute fracture. Soft tissues: Unremarkable. PROCEDURE INFORMATION: Exam: CTA Head With Contrast, Arteriography Exam date and time: 07/15/2023 8:35 PM Age: 48 years old Clinical indication: Cognitive deficit; Altered mental status; Additional info: AMS TECHNIQUE: Imaging protocol: Computed tomographic angiography of the head with contrast. Exam focused on the arteries. 3D rendering (Not supervised by radiologist): MIP and/or 3D reconstructed images were created by the technologist. Radiation optimization: All CT scans at this facility use at least one of these dose optimization techniques: automated exposure control; mA and/or kV adjustment per patient size (includes targeted exams where dose is matched to clinical indication); or iterative reconstruction. Contrast material: OMNI 350; Contrast volume: 80 ml; Contrast route: INTRAVENOUS (IV); COMPARISON: No relevant prior studies available. RADIATION DOSE METRICS: Total DLP (mGy-cm): 1254 FINDINGS: ANTERIOR CIRCULATION: Right internal carotid artery: Intracranial segment is patent with no significant stenosis. No aneurysm. Right middle cerebral artery: No occlusion or significant stenosis. No aneurysm. Right anterior cerebral artery: No occlusion or significant stenosis. No aneurysm. Left internal carotid artery: Intracranial segment is patent with no significant stenosis. No aneurysm. Left middle cerebral artery: No occlusion or significant stenosis. No aneurysm. Left anterior cerebral artery: No occlusion or significant stenosis. No aneurysm. POSTERIOR CIRCULATION: Right vertebral artery: No occlusion or significant stenosis. No aneurysm. Left vertebral artery: No occlusion or significant stenosis. No aneurysm. Basilar artery: No occlusion or significant stenosis. No aneurysm. Right posterior cerebral artery: No occlusion or significant stenosis. No aneurysm. Left posterior cerebral artery: No occlusion or significant stenosis. No aneurysm. Brain: No definite mass, mass effect, or midline shift. Cerebral ventricles: No ventriculomegaly. Bones/joints: Unremarkable. No acute fracture. Soft tissues: Unremarkable. PROCEDURE INFORMATION: Exam: CTA Neck With Contrast Exam date and time: 07/15/2023 8:35 PM Age: 48 years old Clinical indication: Cognitive deficit; Altered mental status; Additional info: AMS TECHNIQUE: Imaging protocol: Computed tomographic angiography of the neck with contrast. Exam focused on the cervical segments of the vasculature. 3D rendering (Not supervised by radiologist): MIP and/or 3D reconstructed images were created by the technologist. Radiation optimization: All CT scans at this facility use at least one of these dose optimization techniques: automated exposure control; mA and/or kV adjustment per patient size (includes targeted exams where dose is matched to clinical indication); or iterative reconstruction. Contrast material: OMNI 350; Contrast volume: 80 ml; Contrast route: INTRAVENOUS (IV); COMPARISON: CT angio chest PE protcl [id number] 07/18/2019 1:29 PM RADIATION DOSE METRICS: Total DLP (mGy-cm): 1254 FINDINGS: Right common carotid artery: No stenosis. No dissection or occlusion. Right internal carotid artery: No stenosis of the extracranial segment. No dissection or occlusion. Right external carotid artery: No occlusion or stenosis of the origin. Left common carotid artery: No stenosis. No dissection or occlusion. Left internal carotid artery: No stenosis of the extracranial segment. No dissection or occlusion. Left external carotid artery: No occlusion or stenosis of the origin. Right vertebral artery: No stenosis. No dissection or occlusion. Left vertebral artery: No stenosis. No dissection or occlusion. Aorta: There are mild atherosclerotic calcifications of the aorta. The great vessels are otherwise unremarkable. Soft tissues: Normal. No significant soft tissue swelling. Bones/joints: No acute fracture. Lungs: There is a partially visualized nodule in the posterior right lower lobe, stable compared to prior. Other findings: There are mild calcifications of the carotid bulbs without significant luminal narrowing. CT/CT angio headneck* [id number] IMPRESSION: 1. No evidence of acute intracranial pathology. 2. Suggested small lacunar infarcts in the left basal ganglia. IMPRESSION: No large vessel stenosis or occlusion. IMPRESSION: 1. Mild calcifications of the aorta and carotid bulbs without significant luminal narrowing, somewhat out of proportion to patient's age. 2. No evidence of acute arterial pathology in the neck. REFERENCES: NASCET CRITERIA. The degree of stenosis in the cervical segment of the internal carotid artery is based on NASCET criteria. Normal is no stenosis. Mild is less than 50% stenosis. Moderate is 50-69% stenosis. Severe is 70% to 99% stenosis. Total occlusion is no detectable patent lumen.
--- NOTE | 2023-07-15 19:53 | XRR_ITS ---
PROCEDURE INFORMATION: Exam: XR Chest Exam date and time: 07/15/2023 8:01 PM Age: 48 years old Clinical indication: Other: AMS TECHNIQUE: Imaging protocol: Radiologic exam of the chest. Views: 1 view. COMPARISON: CT chest w con* [id number] 03/03/2023 7:45 AM FINDINGS: Lungs: Unremarkable. No consolidation. Pleural spaces: Unremarkable. No pleural effusion. No pneumothorax. Heart/Mediastinum: Unremarkable. No cardiomegaly. Bones/joints: Unremarkable. XR/XR chest 1V portable [id number] IMPRESSION: No acute findings.
[2023-07-15 19:54] LABS: Glucose Point of Care 221 mg/dL (70-110)
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
[2023-07-15 20:05] LABS: Basophils # 0.1 10^3/uL (0.0-0.1); Basophils % 0.6 %; Eosinophils # 0.3 10^3/uL (0.0-0.8); Eosinophils % 1.8 %; Hematocrit 45.8 % (37-53); Lymphocytes # 2.8 10^3/uL (0.8-4.8); Mean Corpuscular HGB Conc 33.6 g/dL (30-55); Mean Corpuscular Hemoglobin 29.8 pg (27-33); Mean Corpuscular Volume 88.6 fl (82-101); Mean Platelet Volume 11.3 fL (7.4-10.4); Monocytes # 0.9 10^3/uL (0.2-0.9); Monocytes % 6.4 %; Neutrophils # 9.96 10^3/uL (1.8-7.7); Neutrophils % 70.8 %; Nucleated Red Blood Cells % 0 %; Platelet Count 253 10^3/cmm (157-399); Red Blood Count 5.17 10^6/uL (3.85-5.65); Red Cell Distribution Width 13.8 % (12.1-15.1); White Blood Count 14.06 10^3/uL (3.29-11.43)
--- NOTE | 2023-07-15 20:08 | ECG_ITS ---
[facility] Test Date: 2023-07-15 Pat Name: Cooper Cruz Department: Room: Gender: Male Manager Demand: : 1975 Requested By: Cole Monte Order Number: [id number] Jordan MD: Gabe Roy M.D. Measurements Intervals [place] Rate: 94 P: 39 TN: 151 QRS: -4 QRSD: 89 T: 51 QT: 330 QTc: 414 Interpretive Statements SINUS RHYTHM MODERATE VOLTAGE CRITERIA FOR LVH, CONSIDER NORMAL VARIANT [MEETS CRITERIA IN ONE OF: R(aVL), S(V1), R(V5), R(V5/V6)+S(V1)] NONSPECIFIC T-WAVE ABNORMALITY Compared to ECG 07/18/2019 14:04:08 T-wave abnormality now present Electronically Signed On 07-16-2023 8:14:20 BLACK BELT by Gabe Roy M.D. [id number]
[2023-07-15 20:16] LABS: Alanine Aminotransferase 30 U/L (0-41); Albumin Level 4.2 g/dL (3.5-5.2); Alkaline Phosphatase 80 U/L (40-130); Aspartate Amino Transferase 13 U/L (0-40); Blood Urea Nitrogen 18 mg/dL (6-20); Calcium 8.8 mg/dL (8.5-10.5); Carbon Dioxide 27 mmol/L (22-29); Chloride 101 mmol/L (98-107); Glomerular Filtration Rate 72.1 mL/min (90-130); Glucose 239 mg/dL (65-115); Osmolality Calculated 296 mOsm/kg (285-295); Sodium 138 mmol/L (136-145); Total Bilirubin 0.4 mg/dL (0.15-1.2); Total Protein 7.2 g/dL (6.6-8.7)
[2023-07-15 20:32] LABS: INR 1.03 (0.8-1.2)
[2023-07-15] MEDS: iohexol 350 mg/mL 500 mL Btl (per mL) IV (20:39)
[2023-07-15 20:48] VITALS: BP 173/97; PULSE 95; RESP 18; O2SAT 95
--- NOTE | 2023-07-15 20:52 | PC.NURSE ---
ERP at bedside with pt
[2023-07-15 22:03] VITALS: BP 131/102; PULSE 86; RESP 16; O2SAT 94
[2023-07-15 22:15] VITALS: BP 137/92; PULSE 86; RESP 18; O2SAT 93
--- NOTE | 2023-07-15 22:59 | PM.HP ---
Providers/Chief Complaint Admitting Physician: Karla Jay MD Primary Care Provider: FAITH Landers Chief Complaint: Stroke symptoms History of Present Illness Cooper Cruz is a 48 year old male with a past medical history of diabetes mellitus, currently on an insulin pump presented to the ER today with a delayed presentation concerning for stroke. Patient stated that he started developing right arm and right leg weakness starting at 8 PM yesterday. He also developed a facial droop at the same time. He did not make much of his symptoms and thought they may be related to indigestion. He fell asleep and then woke up the next morning with worsening of the right-sided weakness. He was brought into the ER this evening and was noted to have an NIH stroke scale 4. He denies any loss of consciousness, no known history of seizures, last A1c self-reported to be 8.0. No fever. No cough dyspnea palpitations. No trouble swallowing. Review of Systems General: Reports: 10 or more systems reviewed and unremarkable except in HPI and below Const: Denies: fever(s), chills or body aches Eyes: Denies: change in vision, blurry vision or photophobia ENMT: Reports: hoarseness; Denies: throat pain, enlarged tonsils, odynophagia or nasal congestion Card: Denies: chest pain, palpitations, irregular heart rhythm, edema, swelling of feet/ankles, lightheadedness, pre-syncope, dyspnea on exertion or orthopnea Resp: Denies: dyspnea, productive cough, non-productive cough, wheezing, stridor, pain on inspiration, change in phlegm color, hemoptysis or chest congestion GI: Denies: abdominal pain, nausea, vomiting, hematemesis, coffee ground emesis, dysphagia, heartburn, diarrhea, constipation, GI cramping, change in stool character, hematochezia or melena : Denies: flank pain, dysuria, urinary frequency, urinary urgency, urinary hesitancy or hematuria Musc: Denies: neck pain, back pain, extremity pain, joint swelling, joint warmth or deformity Neuro: Denies: headache(s), numbness in extremities, weakness in extremities, sensory changes, difficulty walking, frequent falls, dizziness, vertigo, behavioral changes, Slurred speech present or seizure-like activity Psych: Denies: anxiety, depression, suicidal ideation or homicidal ideation Endo: Denies: polyuria, polydipsia, tired all the time, cold intolerance or hot flashes Gm/Lymph: Denies: easy bruising or easy bleeding Medications/Allergies Home Medications Medication Instructions Recorded Confirmed Last Taken Type pen needle, diabetic 32 gauge x #360 ea 08/10/20 08/01/22 Unknown Rx 32 (BD Estephanie 2nd Gen Pen Needle) glucagon HCl 1 mg solution for 1 mg SUBCUT Q20M PRN hypoglycemia 09/01/20 08/01/22 Unknown Rx injection (Glucagon (HCl) #2 ea Emergency Kit) blood-glucose meter,continuous #1 ea 01/31/21 08/01/22 Unknown Rx (Dexcom G6 Castings Drafter) subcutaneous insulin pump #1 ea 04/03/21 08/01/22 Unknown Rx subcutaneous insulin pump #1 ea 06/08/21 08/01/22 Unknown Rx blood-glucose sensor (Dexcom G6 #3 ea 10/15/21 08/01/22 Unknown Rx Sensor device) blood-glucose transmitter (Dexcom #3 ea 10/15/21 08/01/22 Unknown Rx G6 Transmitter device) hydrocodone 5 mg-acetaminophen 325 1 tab PO Q12H PRN pain 10 days #20 03/06/22 08/01/22 Unknown Rx mg tablet tabs sertraline 50 mg tablet 50 mg PO DAILY 05/22/22 08/01/22 05/22/22 History temazepam 50 mg PO DAILY 05/22/22 08/01/22 05/22/22 History Allergies Allergy/AdvReac Type Severity Reaction Status Date / Time No Known Allergies Allergy Verified 08/01/22 13:11 PFSH Acute PFSH: Medical History Diabetic foot infection Cellulitis of foot Traumatic avulsion of nail plate of toe 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 Long-term insulin use Diabetic neuropathy Gout PTSD (post-traumatic stress disorder) [place] War syndrome Surgical History History of incision and drainage (~06/15/20) Right foot H/O lymph node excision H/O shoulder surgery H/O knee surgery No history of previous surgery Family History Other Healthy adult Social History Smoking and tobacco/nicotine status: never used tobacco/nicotine Quit status (tobacco/nicotine): has quit using Year quit tobacco: 2-3 ya Alcohol intake: current Alcohol intake frequency: holidays/special occasions only Substance/Drug Use: never Lives independently: Yes Household members: spouse Marital status: service: Yes status: Retired Current occupational status: student Vitals/I&O/Wt Last Vital Signs Temp 98.2 F 07/15/23 19:47 Pulse 86 07/15/23 22:15 Resp 18 07/15/23 22:15 BP 137/92 07/15/23 22:15 Pulse Ox 93 07/15/23 22:15 O2 Del Method Room Air 07/15/23 22:15 Weight last 48 hrs Weight 104.326 kg Physical Exam Narrative: General: No acute distress, AO x3 HEENT: PERRLA, pupils bilaterally equal and reactive, pallors not present Chest: Normal vesicular breath sounds, no added sounds, equal good air entry bilaterally CVS: S1-S2 regular, no murmurs, no tachycardia, no gallops, no rubs Abdomen: Soft, nontender, no organomegaly, bowel sounds present Neuro: Lower extremity strength 3 out of 5, complete facial asymmetry. Mild dysarthria. Data 07/15/23 19:52 07/15/23 19:52 Other Labs: Radiology Impressions Chest X-Ray 07/15/23 19:53 IMPRESSION: No acute findings. Head/Neck CTA 07/15/23 19:53 IMPRESSION: 1. No evidence of acute intracranial pathology. 2. Suggested small lacunar infarcts in the left basal ganglia. IMPRESSION: No large vessel stenosis or occlusion. IMPRESSION: 1. Mild calcifications of the aorta and carotid bulbs without significant luminal narrowing, somewhat out of proportion to patient's age. 2. No evidence of acute arterial pathology in the neck. REFERENCES: NASCET CRITERIA. The degree of stenosis in the cervical segment of the internal carotid artery is based on NASCET criteria. Normal is no stenosis. Mild is less than 50% stenosis. Moderate is 50-69% stenosis. Severe is 70% to 99% stenosis. Total occlusion is no detectable patent lumen. Laboratory Results WBC 14.06 10^3/uL (3.29-11.43) H 07/15/23 19:52 RBC 5.17 10^6/uL (3.85-5.65) 07/15/23 19:52 Hgb 15.40 g/dL (11.27-16.99) 07/15/23 19:52 Hct 45.8 % (37-53) 07/15/23 19:52 MCV 88.6 fl (82-101) 07/15/23 19:52 MCH 29.8 pg (27-33) 07/15/23 19:52 MCHC 33.6 g/dL (30-55) 07/15/23 19:52 RDW 13.8 % (12.1-15.1) 07/15/23 19:52 Plt Count 253 10^3/cmm (157-399) 07/15/23 19:52 MPV 11.3 fL (7.4-10.4) H 07/15/23 19:52 Neut % (Auto) 70.8 % 07/15/23 19:52 Lymph % (Auto) 20.0 % 07/15/23 19:52 [place] % (Auto) 6.4 % 07/15/23 19:52 Eos % (Auto) 1.8 % 07/15/23 19:52 Baso % (Auto) 0.6 % 07/15/23 19:52 Neut # (Auto) 9.96 10^3/uL (1.8-7.7) H 07/15/23 19:52 Lymph # (Auto) 2.8 10^3/uL (0.8-4.8) 07/15/23 19:52 [place] # (Auto) 0.9 10^3/uL (0.2-0.9) 07/15/23 19:52 Eos # (Auto) 0.3 10^3/uL (0.0-0.8) 07/15/23 19:52 Baso # (Auto) 0.1 10^3/uL (0.0-0.1) 07/15/23 19:52 Nucleated RBC % (auto) 0 % 07/15/23 19:52 Nucleated RBCs # 0.0 /100WBC 07/15/23 19:52 PT 13.80 SECONDS (12.1-14.9) 07/15/23 19:52 INR 1.03 (0.8-1.2) 07/15/23 19:52 APTT 26.0 SECONDS (23.9-36.7) 07/15/23 19:52 Sodium 138 mmol/L (136-145) 07/15/23 19:52 Potassium 4.0 mmol/L (3.5-5.1) 07/15/23 19:52 Chloride 101 mmol/L (98-107) 07/15/23 19:52 Carbon Dioxide 27 mmol/L (22-29) 07/15/23 19:52 Anion Gap 14.0 (5-19) 07/15/23 19:52 BUN 18 mg/dL (6-20) 07/15/23 19:52 Creatinine 1.1 mg/dL (0.7-1.2) 07/15/23 19:52 GFR Calculation 72.1 mL/min (90-130) L 07/15/23 19:52 Glucose 239 mg/dL (65-115) H 07/15/23 19:52 POC Glucose 221 mg/dL (70-110) H 07/15/23 19:51 Estimat Average Glucose 194 07/15/23 19:52 Hemoglobin A1c 8.4 % (4.0-6.0) H 07/15/23 19:52 Calculated Osmolality 296 mOsm/kg (285-295) H 07/15/23 19:52 Calcium 8.8 mg/dL (8.5-10.5) 07/15/23 19:52 Total Bilirubin 0.4 mg/dL (0.15-1.2) 07/15/23 19:52 AST 13 U/L (0-40) 07/15/23 19:52 ALT 30 U/L (0-41) 07/15/23 19:52 Alkaline Phosphatase 80 U/L (40-130) 07/15/23 19:52 Total Protein 7.2 g/dL (6.6-8.7) 07/15/23 19:52 Albumin 4.2 g/dL (3.5-5.2) 07/15/23 19:52 Globulin 3.0 g/dL (1.3-4.6) 07/15/23 19:52 Triglycerides 336 mg/dL (0-150) H 07/15/23 19:52 Cholesterol 195 mg/dL (0-200) 07/15/23 19:52 LDL Cholesterol, Calc 98 mg/dL (50-129) 07/15/23 19:52 HDL Cholesterol 30 mg/dL (60-100) L 07/15/23 19:52 LDL/HDL Ratio 3.27 RATIO (0.00-3.22) H 07/15/23 19:52 Cholesterol/HDL Ratio 6.50 mg/dL (1.0-5.00) H 07/15/23 19:52 A&P Assessment and plan (1) Acute CVA (cerebrovascular accident): (2) Focal neurological deficit, onset greater than 24 hours: Plan Admit the patient to [facility] for close neuro monitoring he is not a tPA candidate due to onset of symptoms > 24h at this point Continue telemetry monitoring on the unit to evaluate for underlying arrhythmias. CTA head and neck without any major vessel occlusion. Echocardiogram ordered and pending Start aspirin 81 mg daily + Plavix 75 mg p.o. daily Atorvastatin 40 mg daily Check lipid panel and HbA1c allow for permissive hypertension PT OT speech therapy assessment Patient wishes to manage his own insulin via pump during the hospital course. DVT prophylaxis: Lovenox 40 s/c Full code Attestations Medical Necessity Statement*: > 2 midnight stay is anticipated Coding Level of Care Code Acute Code for Chg Fwd Moderate MDM includes number and complexity of problems actively addressed during encounter, amount and/or complexity of data reviewed/ordered and described risk of complication, morbidity or mortality of management as documented Diagnoses Acute CVA (cerebrovascular accident) I63.9 Focal neurological deficit, onset greater than 24 hours R29.818
--- NOTE | 2023-07-15 23:00 | USCV_ITS ---
Cooper Cruz Age: 48 Gender: M : 1975 Exam Date: 07/15/2023 23:52 Ordering Phys: Karla Jay MD Technologist: ANKIT [place] [facility] [place]: RIGHT facial droop, RIGHT hemiparesis x 6 hours. IDDM x 3 years. No history of cardiac intervention per patient. BP: 137 / 92 HR: 83 Rhythm: Sinus Technical Quality: Adequate MEASUREMENTS (Male / Female) Normal Values 2D ECHO LV Diastolic Diameter PLAX 3.6 cm 4.2 - 5.9 / 3.9 - 5.3 cm IVS Diastolic Thickness 1.9 cm 0.6 - 1.0 / 0.6 - 0.9 cm IVS Systolic Thickness 1.9 cm LVPW Diastolic Thickness 1.6 cm 0.6 - 1.0 / 0.6 - 0.9 cm LVPW Systolic Thickness 2.2 cm LV Ejection Fraction 2D Teich 60.7 % LV Ejection Fraction MOD 2C 71.7 % Aorta at Sinotubular Diameter 2.9 cm IVC Diameter 0.9 cm M-MODE LA Ao Ratio MM 1.1 AV Cusp Separation MM 1.8 cm DOPPLER AV Area Cont Eq vti 3.2 cm squared AV Area Cont Eq pk 3.2 cm squared MV Peak Velocity 65.0 cm/s MV Area PHT 3.6 cm squared Mitral E to A Ratio 0.7 Right Atrial Pressure 3.0 mmHg FINDINGS Left Ventricle Normal left ventricular size and systolic function, EF 61%. Moderate concentric left-ventricular hypertrophy. Right Ventricle The right ventricle is normal in size and function. Right Atrium The right atrium is normal in size. Left Atrium Mildly increased left atrial size. Mitral Valve Mild mitral valve regurgitation. Aortic Valve No gross abnormalities noted Tricuspid Valve No gross abnormalities noted. Pulmonic Valve Mild pulmonary valve regurgitation. Pericardium Normal pericardium without effusion. Aorta Normal ascending aorta dimension. IVC Normal inferior vena cava. CONCLUSIONS Normal left ventricular size and systolic function, EF 61%. Moderate concentric left-ventricular hypertrophy. Mildly increased left atrial size. Mild pulmonary valve regurgitation. Mild mitral valve regurgitation. There is no pericardial effusion. There are no intracardiac masses. No similar previous studies are available for comparison Dr Lizzy Hernandez MD [facility] (Electronically Signed) Final Date: 16 July 2023 11:53 S
--- NOTE | 2023-07-15 23:03 | PC.NURSE ---
attempted to call report, nurse unavailable
[2023-07-15 23:30] VITALS: BP 160/85; PULSE 83; RESP 19; TEMP 36.7; O2SAT 96
[2023-07-15 23:35] LABS: Cholesterol 195 mg/dL (0-200); HDL Cholesterol 30 mg/dL (60-100); LDL Cholesterol Calculated 98 mg/dL (50-129); LDL HDL Ratio 3.27 RATIO (0.00-3.22); Triglycerides 336 mg/dL (0-150)
[2023-07-15 23:53] LABS: Estmated Average Glucose 194; Hemoglobin A1C 8.4 % (4.0-6.0)
[2023-07-16] VITALS (7 sets, daily range): BP systolic 126–147; BP diastolic 86–99; PULSE 76–95; RESP 17–20; TEMP 36.4–36.6; O2SAT 94–96; BMI 31.1
[2023-07-16 06:44] LABS: Glucose Point of Care 136 mg/dL (70-110)
[2023-07-16] MEDS: enoxaparin 40 mg/0.4 mL Syringe SUBCUT (06:53)
--- NOTE | 2023-07-16 08:35 | PC.PHAR ---
PT IS [facility]- FAXING MEDICATION LIST 8:30AM 07/15/23
[2023-07-16] MEDS: aspirin 81 mg EC Tablet PO (08:54)
[2023-07-16] MEDS: clopidogrel 75 mg Tablet PO (08:54)
[2023-07-16] MEDS: sertraline 50 mg Tablet PO (08:54)
--- NOTE | 2023-07-16 10:30 | PM.DCS ---
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 Patient is able to eat diabetic diet before discharge. Blood sugar is within normal range A1c 8.4. Likely etiology is atherosclerotic disease related to type 1 diabetes. Sinus rhythm, Physical Exam Narrative: NIH 1 for mild weakness of right arm otherwise unremarkable neuroexam GCS 15 Pleasant cooperative at the bedside S1, S2 Currently on room air Discharge Data Studies Completed and Pending Completed Studies During Hospitalization Category Date Time Status CT angio headneck* [id number] Stat Cat Scan 07/15/23 19:53 Completed XR chest 1V portable [id number] Stat Exams 07/15/23 19:53 Completed Pending at discharge Category Date Time Status Drug Screen, Urine Stat Lab 07/15/23 19:53 Uncollected Urinalysis Stat Lab 07/15/23 19:53 Uncollected CV. echo complete* [id number] Routine Ultrasound 07/15/23 23:00 Taken Radiology Impressions Chest X-Ray 07/15/23 19:53 IMPRESSION: No acute findings. Head/Neck CTA 07/15/23 19:53 IMPRESSION: 1. No evidence of acute intracranial pathology. 2. Suggested small lacunar infarcts in the left basal ganglia. IMPRESSION: No large vessel stenosis or occlusion. IMPRESSION: 1. Mild calcifications of the aorta and carotid bulbs without significant luminal narrowing, somewhat out of proportion to patient's age. 2. No evidence of acute arterial pathology in the neck. REFERENCES: NASCET CRITERIA. The degree of stenosis in the cervical segment of the internal carotid artery is based on NASCET criteria. Normal is no stenosis. Mild is less than 50% stenosis. Moderate is 50-69% stenosis. Severe is 70% to 99% stenosis. Total occlusion is no detectable patent lumen. Laboratory Results WBC 14.06 10^3/uL (3.29-11.43) H 07/15/23 19:52 RBC 5.17 10^6/uL (3.85-5.65) 07/15/23 19:52 Hgb 15.40 g/dL (11.27-16.99) 07/15/23 19:52 Hct 45.8 % (37-53) 07/15/23 19:52 MCV 88.6 fl (82-101) 07/15/23 19:52 MCH 29.8 pg (27-33) 07/15/23 19:52 MCHC 33.6 g/dL (30-55) 07/15/23 19:52 RDW 13.8 % (12.1-15.1) 07/15/23 19:52 Plt Count 253 10^3/cmm (157-399) 07/15/23 19:52 MPV 11.3 fL (7.4-10.4) H 07/15/23 19:52 Neut % (Auto) 70.8 % 07/15/23 19:52 Lymph % (Auto) 20.0 % 07/15/23 19:52 [place] % (Auto) 6.4 % 07/15/23 19:52 Eos % (Auto) 1.8 % 07/15/23 19:52 Baso % (Auto) 0.6 % 07/15/23 19:52 Neut # (Auto) 9.96 10^3/uL (1.8-7.7) H 07/15/23 19:52 Lymph # (Auto) 2.8 10^3/uL (0.8-4.8) 07/15/23 19:52 [place] # (Auto) 0.9 10^3/uL (0.2-0.9) 07/15/23 19:52 Eos # (Auto) 0.3 10^3/uL (0.0-0.8) 07/15/23 19:52 Baso # (Auto) 0.1 10^3/uL (0.0-0.1) 07/15/23 19:52 Nucleated RBC % (auto) 0 % 07/15/23 19:52 Nucleated RBCs # 0.0 /100WBC 07/15/23 19:52 PT 13.80 SECONDS (12.1-14.9) 07/15/23 19:52 INR 1.03 (0.8-1.2) 07/15/23 19:52 APTT 26.0 SECONDS (23.9-36.7) 07/15/23 19:52 Sodium 138 mmol/L (136-145) 07/15/23 19:52 Potassium 4.0 mmol/L (3.5-5.1) 07/15/23 19:52 Chloride 101 mmol/L (98-107) 07/15/23 19:52 Carbon Dioxide 27 mmol/L (22-29) 07/15/23 19:52 Anion Gap 14.0 (5-19) 07/15/23 19:52 BUN 18 mg/dL (6-20) 07/15/23 19:52 Creatinine 1.1 mg/dL (0.7-1.2) 07/15/23 19:52 GFR Calculation 72.1 mL/min (90-130) L 07/15/23 19:52 Glucose 239 mg/dL (65-115) H 07/15/23 19:52 POC Glucose 136 mg/dL (70-110) H 07/16/23 06:35 Estimat Average Glucose 194 07/15/23 19:52 Hemoglobin A1c 8.4 % (4.0-6.0) H 07/15/23 19:52 Calculated Osmolality 296 mOsm/kg (285-295) H 07/15/23 19:52 Calcium 8.8 mg/dL (8.5-10.5) 07/15/23 19:52 Total Bilirubin 0.4 mg/dL (0.15-1.2) 07/15/23 19:52 AST 13 U/L (0-40) 07/15/23 19:52 ALT 30 U/L (0-41) 07/15/23 19:52 Alkaline Phosphatase 80 U/L (40-130) 07/15/23 19:52 Total Protein 7.2 g/dL (6.6-8.7) 07/15/23 19:52 Albumin 4.2 g/dL (3.5-5.2) 07/15/23 19:52 Globulin 3.0 g/dL (1.3-4.6) 07/15/23 19:52 Triglycerides 336 mg/dL (0-150) H 07/15/23 19:52 Cholesterol 195 mg/dL (0-200) 07/15/23 19:52 LDL Cholesterol, Calc 98 mg/dL (50-129) 07/15/23 19:52 HDL Cholesterol 30 mg/dL (60-100) L 07/15/23 19:52 LDL/HDL Ratio 3.27 RATIO (0.00-3.22) H 07/15/23 19:52 Cholesterol/HDL Ratio 6.50 mg/dL (1.0-5.00) H 07/15/23 19:52 Vitals Last Vital Signs Temp 97.9 F 07/16/23 07:52 Pulse 90 07/16/23 07:52 Resp 20 H 07/16/23 07:52 BP 144/90 07/16/23 07:52 Pulse Ox 96 07/16/23 07:52 O2 Del Method Room Air 07/16/23 07:52 Discharge Plan Discharge Patient Disposition: Home Condition: Stable Prescriptions: New aspirin 81 mg Tablet,Delayed Release (Dr/Ec) 81 mg PO DAILY Qty: 90 3RF clopidogrel 75 mg Tablet 75 mg PO DAILY Qty: 20 0RF atorvastatin 80 mg tablet 80 mg PO DAILY Qty: 90 3RF Continued Glucagon (HCl) Emergency Kit 1 mg recon soln 1 mg SUBCUT Q20M PRN (Reason: hypoglycemia) Qty: 2 3RF Rx Instructions: until target blood sugar attained (DME) subcutaneous insulin pump Misc See Rx Instructions .Route Qty: 1 0RF Rx Instructions: T slim insulin pump and supplies (DME) Dexcom G6 Glaze Wiper Misc See Rx Instructions .ROUTE .MEDSUPPLY Qty: 1 0RF Rx Instructions: used to take blood sugars (DME) Dexcom G6 Sensor Device See Rx Instructions .ROUTE .MEDSUPPLY Qty: 3 3RF Rx Instructions: used to check blood sugar 4 times a day (DME) Dexcom G6 Transmitter Device See Rx Instructions .ROUTE .MEDSUPPLY Qty: 3 3RF Rx Instructions: As directed latanoprost 0.005 % drops 1 drp ophthalmic (eye) BEDTIME sildenafil 100 mg Tablet See Rx Instructions .ROUTE .COMPLEX Rx Instructions: Take 100 mg by mouth twice weekly as needed for erectile dysfunction 60 minutes prior to sexual activity. limit 6 doses per 30 days. Novolog U-100 Insulin aspart 100 unit/mL solution See Rx Instructions .ROUTE .COMPLEX Rx Instructions: INJECT BASAL/BOLUS UNDER THE SKIN DIRECTED PER PUMP. MAX DAILY DOSE 100 units. ADMINISTER 10 MUNUTES BEFORE FOOD DIRECTED. DISCARD VIAL 28 DAYS AFTER OPENING indomethacin 25 mg capsule 25 mg PO TID PRN (Reason: GOUT) allopurinol 300 mg tablet 300 mg PO DAILY gabapentin 100 mg capsule 100 mg PO TID Vitamin D3 50 mcg (2,000 unit) tablet 50 mcg PO DAILY temazepam 15 mg capsule 15 mg PO BEDTIME PRN (Reason: Insomnia) Discharge Orders: Discharge Order (Routine); Ordered 07/16/23 Ordered By: Dom Taylor Other Ambulatory Orders: Physical Therapy Eval and Treat Outpatient (Order) Timeframe: 3 Months Facility: [facility] - Location: Physical Therapy Ordered By: Dom Taylor Referrals: Graciela Shaikh FNP [Primary Care Provider] - 07/24/23 1:30 pm Chong Sy D.O. [Referring] - 4-7 days (CAROTID DISEASE) Discharge Diet: Diabetic Patient Instructions: Opioid Safety Discharge Attestations Time Spent in Discharge Care*: greater than 30 min Quality Metrics Clinical Quality Measures [ No reported AMI, CVA or VTE this stay] Coding Level of Care Code Acute Code for Chg Fwd Diagnoses Acute CVA (cerebrovascular accident) I63.9 Focal neurological deficit, onset greater than 24 hours R29.818
== END 2023-07-16 11:10 | disposition home or self-care (01) | DRG 65 ==
LOC: ER 21:45 → MEDSURG 22:48
PROVIDERS: Admitting Provider Student in an Organized Health Care Education/Training Program; Emergency Provider Internal Medicine; PCP Nurse Practitioner; Visit Provider Internal Medicine
DX: I63.9 Cerebral infarction, unspecified (principal); G81.91 Hemiplegia, unspecified affecting right dominant side; R29.810 Facial weakness; R29.704 NIHSS score 4; Z87.891 Personal history of nicotine dependence; R29.818 Other symptoms and signs involving the nervous system; F43.10 Post-traumatic stress disorder, unspecified; M10.9 Gout, unspecified; E10.40 Type 1 diabetes mellitus with diabetic neuropathy, unspecified; Z96.41 Presence of insulin pump (external) (internal)
CPT/HCPCS: 36416; 70496; 70498; 71045; 80053; 80061; 82962; 83036; 85025; 85610; 85730; 93005; 93306; 96372; 97110; 97116; 97161; 97165; 99285; J1650; Q9967

== ENCOUNTER → 2023-07-31 09:13 | Outpatient (BNVA) | payer OTHER, SELFPAY | PROVIDERS: PCP Nurse Practitioner; Visit Provider Podiatrist Foot & Ankle Surgery | DX: L60.3 Nail dystrophy (principal); G62.9 Polyneuropathy, unspecified; Z86.73 Personal history of transient ischemic attack (TIA), and cerebral infarction without residual deficits; B35.4 Tinea corporis; E11.42 Type 2 diabetes mellitus with diabetic polyneuropathy; Z79.4 Long term (current) use of insulin | CPT/HCPCS: 99204 ==

== ENCOUNTER 2023-09-20 11:13 | Emergency (ER) | payer OTHER, SELFPAY ==
[2023-09-20 11:32] VITALS: BP 127/84; PULSE 92; RESP 17; TEMP 36.7; O2SAT 98
--- NOTE | 2023-09-20 11:52 | ED_ITS ---
HPI - Eye Problem General: Chief complaint: Eye Problems Stated complaint: left eye issues Time Seen by Provider: 09/20/23 11:49 History of Present Illness: 48-year-old man with a history of recent stroke who is now on Plavix who presents the emergency room with blood around his left eye. He does report that he had a sneezing fit last night. He woke up with the blood on his eye this morning. Appears to be a subconjunctival hemorrhage. He has no vision changes. No pain. Blood pressure is well-controlled here today. Review of Systems Narrative: Constitutional symptoms: Negative except as documented in HPI. Skin symptoms: Negative except as documented in HPI. Eye symptoms: Negative except as documented in HPI. ENMT symptoms: Negative except as documented in HPI. Respiratory symptoms: Negative except as documented in HPI. Cardiovascular symptoms: Negative except as documented in HPI. Gastrointestinal symptoms: Negative except as documented in HPI. Genitourinary symptoms: Negative except as documented in HPI. Musculoskeletal symptoms: Negative except as documented in HPI. Neurologic symptoms: Negative except as documented in HPI. Psychiatric symptoms: Negative except as documented in HPI. Endocrine symptoms: Negative except as documented in HPI. 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 Long-term insulin use Diabetic neuropathy Gout PTSD (post-traumatic stress disorder) [place] syndrome Surgical History History of incision and drainage (~06/15/20) Right foot H/O lymph node excision H/O shoulder surgery H/O knee surgery No history of previous surgery Family History Other Healthy adult Social History Smoking and tobacco/nicotine status: never used tobacco/nicotine Quit status (tobacco/nicotine): has quit using Year quit tobacco: 2-3 ya Alcohol intake: current Alcohol intake frequency: holidays/special occasions only Substance/Drug Use: never Lives independently: Yes Household members: spouse Marital status: service: Yes status: Retired Current occupational status: student Physical Exam Narrative: EXAM NARRATIVE: General: Alert, no acute distress. Skin: warm and dry Head: Normocephalic Neck: Trachea midline Eye: Extraocular movements are intact. Vision is grossly normal. There is a decent sized medial subconjunctival hemorrhage on his left eye. Ears, nose, mouth and throat: Oral mucosa moist Respiratory: Respirations are non-labored Musculoskeletal: Normal ROM Neurological: Alert and oriented to person, place, time, and situation, No focal neurological deficit observed. Psychiatric: Cooperative, appropriate mood & affect. Course Vital Signs: Vital signs: Vital Signs Temperature 98.1 F 09/20/23 11:32 Pulse Rate 92 09/20/23 11:32 Respiratory Rate 17 09/20/23 11:32 Blood Pressure 127/84 09/20/23 11:32 Pulse Oximetry 98 09/20/23 11:32 Oxygen Delivery Me thod Room Air 09/20/23 11:32 MDM - Eye Problem Medical Decision Making Discussed findings with the patient and discussed that it is a benign happening that is likely secondary to his sneezing and his Plavix. No radiology studies performed this visit Other Data Assessment and plan: Subconjunctival hemorrhage - Discharged home - Discussed plan with patient. Answered any questions. - Evaluation and treatment of this problem were appropriate in the emergency setting. Discharge Plan Discharge Patient Disposition: Home Clinical Impression: Subconjunctival hemorrhage Condition: Stable Prescriptions: No Action Glucagon (HCl) Emergency Kit 1 mg recon soln 1 mg SUBCUT Q20M PRN (Reason: hypoglycemia) Qty: 2 3RF Rx Instructions: until target blood sugar attained (DME) subcutaneous insulin pump Misc See Rx Instructions .Route Qty: 1 0RF Rx Instructions: T slim insulin pump and supplies clotrimazole-betamethasone 1-0.05 % cream 1 applic topical BID 28 Days Qty: 45 0RF (DME) diabetic shoes with L3020 inserts See Rx Instructions .Route .MEDSUPPLY Qty: 1 0RF Rx Instructions: As directed to the shoe guys (DME) Dexcom G6 Paint Roller Cover Machine Setter Misc See Rx Instructions .ROUTE .MEDSUPPLY Qty: 1 0RF Rx Instructions: used to take blood sugars (DME) Dexcom G6 Sensor Device See Rx Instructions .ROUTE .MEDSUPPLY Qty: 3 3RF Rx Instructions: used to check blood sugar 4 times a day (DME) Dexcom G6 Transmitter Device See Rx Instructions .ROUTE .MEDSUPPLY Qty: 3 3RF Rx Instructions: As directed latanoprost 0.005 % drops 1 drp ophthalmic (eye) BEDTIME sildenafil 100 mg Tablet See Rx Instructions .ROUTE .COMPLEX Rx Instructions: Take 100 mg by mouth twice weekly as needed for erectile dysfunction 60 minutes prior to sexual activity. limit 6 doses per 30 days. Novolog U-100 Insulin aspart 100 unit/mL solution See Rx Instructions .ROUTE .COMPLEX Rx Instructions: INJECT BASAL/BOLUS UNDER THE SKIN DIRECTED PER PUMP. MAX DAILY DOSE 100 units. ADMINISTER 10 MUNUTES BEFORE FOOD DIRECTED. DISCARD VIAL 28 DAYS AFTER OPENING indomethacin 25 mg capsule 25 mg PO TID PRN (Reason: GOUT) allopurinol 300 mg tablet 300 mg PO DAILY gabapentin 100 mg capsule 100 mg PO TID Vitamin D3 50 mcg (2,000 unit) tablet 50 mcg PO DAILY temazepam 15 mg capsule 15 mg PO BEDTIME PRN (Reason: Insomnia) clopidogrel 75 mg Tablet 75 mg PO DAILY Qty: 20 0RF aspirin 81 mg Tablet,Delayed Release (Dr/Ec) 81 mg PO DAILY Qty: 90 3RF atorvastatin 80 mg tablet 80 mg PO DAILY Qty: 90 3RF Discharge Orders: Discharge ED (Routine); Ordered 09/20/23 Ordered By: Ange Machuca Referrals: Graciela Shaikh, SAIL REPAIR PERSON [Primary Care Provider] - (You have been screened and evaluated and felt safe for discharge. Health conditions do change or evolve sometimes and as such it is important that you follow up with your Primary Doctor to be re checked, 3-5 days is a general good time frame for follow up. You are always welcome to return to the ED for re assessment if your symptoms are worsening or you have new concerns) Discharge Diet: Usual diet Discharge Activity: Increase activity as tolerated Patient Instructions: Subconjunctival Hemorrhage Coding Level of Care Code ED Aviation Program Manager for Nancy Estes
[2023-09-20 12:11] VITALS: BP 117/78; RESP 14; O2SAT 98
== END 2023-09-20 12:12 | disposition home or self-care (01) ==
PROVIDERS: Emergency Provider Emergency Medicine; PCP Nurse Practitioner
DX: H11.32 Conjunctival hemorrhage, left eye (principal); Z79.02 Long term (current) use of antithrombotics/antiplatelets; Z86.73 Personal history of transient ischemic attack (TIA), and cerebral infarction without residual deficits; E11.42 Type 2 diabetes mellitus with diabetic polyneuropathy; Z87.891 Personal history of nicotine dependence; Z79.82 Long term (current) use of aspirin; Z79.4 Long term (current) use of insulin
CPT/HCPCS: 99281